=== PATIENT | male | born 1935 | race Caucasian/White ===

== ENCOUNTER 2017-06-08 15:03 | Inpatient (IN) | payer OTHER ==
[2017-06-08] MEDS ORDERED: SODIUM CHLORIDE 0.9% 1000 ML INFUS.BAG IV ONE (15:33)
[2017-06-08] MEDS ORDERED: VANCOMYCIN 1,750 MG in DEXTROSE 5%-WATER - 250 ML IVPB ONE (15:35)
[2017-06-08] MEDS ORDERED: VANCOMYCIN 1 GRAM (PRE-DOCKED) 250 ML IVPB ONE (15:38)
--- NOTE | 2017-06-08 15:41 | PDOC ---
Attending Attestation - Resident Resident Name: Sybil Sanchezcalliecarissa - ED Attending Attestation I have performed the following: I have examined & evaluated the patient, The case was reviewed & discussed with the resident, I agree w/resident's findings & plan, Exceptions are as noted - HPI HPI: 06/08/17 16:28 81-year-old male with a history of multiple medical problems including end- stage COPD and CHF p/w respiratory distress. Per Dr. Mcbride, patient has had progressive respiratory distress over the last few days prompting the alf to put him on Rocephin and start him on azithromycin this morning. He also reports that the patient has recently been on Lasix twice a day as opposed to his usual Lasix once a day. In the ED the patient appears lethargic with increased work of breathing on BiPAP. Likely COPD +/- CHF exacerbation. Afebrile here but PNA also a possibility. His family is currently trying to decide on his CODE STATUS, they believe he would not want a breathing tube but they are unsure about chest compressions. They are awaiting a brother to come to the ED to make a decision. Plan: -cxr -bipap -ABG -Vanc (pt got zosyn and azthro today in [place]) -labs -admit to ICU
[2017-06-08 15:44] LABS: MCH 26.2 pg (25.7-33.7); MCHC 31.9 g/dl (32.0-35.9); MEAN CELL VOLUME 82.1 fl (80-96); PLATELET COUNT 654 K/MM3 (134-434); RDW 16.9 % (11.9-15.9); WHITE BLOOD COUNT 25.3 K/mm3 (4.0-10.0)
[2017-06-08 15:56] LABS: ALBUMIN 3.6 g/dl (3.4-5.0); ANION GAP 12 (8-16); BILIRUBIN,TOTAL 0.3 mg/dL (0.2-1.0); CALCIUM 8.6 mg/dL (8.5-10.1); CO2 26 mmol/L (21-32); CREATININE 4.8 mg/dL (0.7-1.3); GLUCOSE,RANDOM 189 mg/dL (74-106); MAGNESIUM 2.8 mg/dL (1.8-2.4); SGOT/AST 17 U/L (15-37); SGPT/ALT 20 U/L (12-78); TOT PROT 7.5 g/dl (6.4-8.2)
[2017-06-08 15:57] LABS: ARTERIAL BLD GAS O2 SATURATION 97.1 % (90-98.9); ARTERIAL BLOOD GAS BASE EXCESS -2.9 meq/l (-2-2); ARTERIAL BLOOD GAS HCO3 25.4 meq/L (22-26); ARTERIAL BLOOD GAS PO2 93.1 mmHg (68-100)
--- NOTE | 2017-06-08 15:58 | PDOC ---
History of Present Illness - General Chief Complaint: Respiratory Distress Stated Complaint: DIFFICULTY BREATHING Time Seen by Provider: 06/08/17 15:16 - History of Present Illness Initial Comments: 81 year old male with PMH of significant past medical history of dementia, COPD , CHF, CAD, HTN, chronic renal insufficiency, CLL, GERD, peripheral vascular disease, anxiety, hyperlipidemia, diabetes, anemia, and BPH who was sent from [facility] and presents to the emergency department for increasing lethargy with an acute episode of unresponsivebess at 10:45 AM after some apparent visual cyanosis (bluish tinge to skin). He was suctioned and repositioned then recovered but was still acutely altered. He is slightly demented at baseline but usually very talkative. He is currently only responsive with very few words. He was given zosyn and azithromycin earlier in the longterm as well. A CXR on 06/06/17 was clear for any acute pathology. He was afebrile and not complaining of any issues at the longterm. He is DNR and DNI according to her longterm document and a face to face conversation with the two POAs (Marta and Mark). 06/08/17 15:57 06/08/17 17:08 Past History - Past Medical History Allergies/Adverse Reactions: Allergies Allergy/AdvReac Type Severity Reaction Status Date / Time No Known Allergies Allergy Verified 06/08/16 12:53 Home Medications: Ambulatory Orders Albuterol 0.083% Nebulizer Davida [Ventolin 0.083% Nebulizer Soln -] 1 neb NEB Q6H 06/08/16 Budesonide/Formeterol Fumarate [SYMBICORT 160/4.5mcg -] 1 inh PO BID 06/08/16 Calcium Carbonate/Vitamin D3 [Calcium 600-Vit D3 200 Tablet] 1 each PO DAILY 12/19 Cholecalciferol (Vitamin D3) [Vitamin D3 -] 1,000 unit PO DAILY 06/08/16 Clonazepam [Klonopin -] 0.5 mg PO BID 06/08/16 Docusate Sodium 100 mg PO HS 06/08/16 Dorzolamide/Timolol/Pf [Cosopt Pf Eye Drops] 1 each OP DAILY 06/08/16 Escitalopram Oxalate [Lexapro -] 20 mg PO DAILY 06/08/16 Olopatadine HCl [Pataday] 2.5 ml OP DAILY 06/08/16 Tamsulosin HCl 0.4 mg PO DAILY 06/08/16 Acetaminophen [Tylenol .Regular Strength -] 650 mg PO Q4H PRN #90 tablet Latanoprost 0.005% Eye Drops [Xalatan 0.005% Eye Drops -] 1 drop OS HS #0 06/23 Aspirin [ASA -] 81 mg PO DAILY 06/08/17 Ferrous Sulfate [Feosol] 325 mg PO BID 06/08/17 Fexofenadine HCl 60 mg PO BID 06/08/17 Furosemide [Lasix -] 20 mg PO DAILY 06/08/17 Lisinopril [Zestril] 2.5 mg PO DAILY 06/08/17 Omeprazole 20 mg PO DAILY 06/08/17 Tramadol HCl 50 mg PO DAILY 06/08/17 Anemia: Yes Cardiac Disorders: Yes (CAD) CVA: (COR ATHEROSCLEROSIS) COPD: Yes CHF: Yes Diabetes: Yes HTN: Yes Hypercholesterolemia: Yes - Surgical History Cardiac Surgery: Yes (PACEMAKER TO LEFT CHEST) - Immunization History Td Vaccination: No TDAP Vaccination: No Immunization Up to Date: Yes - Suicide/Smoking/Psychosocial Hx Smoking History: Unknown if ever smoked Have you smoked in the past 12 months: No Number of Cigarettes Smoked Daily: 0 Cigars Per Day: 0 Information on smoking cessation initiated: No Hx Alcohol Use: No Drug/Substance Use Hx: No Substance Use Type: None Hx Substance Use Treatment: No Review of Systems - Review of Systems Able to Perform ROS?: No *Physical Exam - Vital Signs Last Vital Signs Temp Pulse Resp BP Pulse Ox 99.6 F 74 24 125/73 97 06/08/17 15:09 06/08/17 15:09 06/08/17 15:09 06/08/17 15:09 06/08/17 15:35 - Physical Exam General Appearance: Yes: Nourished, Apparent Distress, Mild Distress HEENT: positive: EOMI, Normal ENT Inspection, Normal Voice. negative: CLAYTON ( Right pupil round and reactive to light both direct and consenual. Left pupil dilated and non-responsive. ) Neck: positive: Trachea midline, Normal Thyroid, Supple. negative: Tender, Rigid Respiratory/Chest: positive: Lungs Clear, Normal Breath Sounds, Respiratory Distress, Accessory Muscle Use, Labored Respiration (Paztient with sternal retractions and abdominal pardoxical breathign whiel on bipap). negative: Chest Tender Cardiovascular: positive: Regular Rhythm, Regular Rate, S1, S2. negative: Edema , JVD, Murmur Gastrointestinal/Abdominal: positive: Normal Bowel Sounds, Flat, Soft. negative : Tender Extremity: positive: Coldness. negative: Pedal Edema Integumentary: positive: Pale, Cold Neurologic: negative: Fully Oriented, Alert (Somnolent but arrousable to sternal rub and ocasionally voice. Able to answer questions qith appropriate one word answers but delayed.), Normal Response ED Treatment Course - LABORATORY CBC & Chemistry Diagram: 06/08/17 15:35 06/08/17 15:40 - ADDITIONAL ORDERS Additional order review: Laboratory Results 06/08/17 15:40 Sodium 137 Potassium 6.1 H* D Chloride 99 D - RADIOLOGY Radiology Studies Ordered: Category Date Time Status CHEST X-RAY PORTABLE* [RAD] Stat Radiology 06/08/17 15:35 Taken - Medications Given in the ED: ED Medications Discontinued Medications Generic Name Dose Route Start Last Admin Trade Name Freq PRN Reason Stop Dose Admin Sodium Chloride 500 ml 06/08/17 15:33 06/08/17 15:34 Normal Saline - IV 06/08/17 15:34 500 ml ONCE ONE Administration Medical Decision Making - Medical Decision Making 81 year old male presenting in acute hypoxic respiratory and altered mental status. Patient placed on bipap and given a dose of vanc on presentation ( received zosyn and azithromycin). His pressures were tenuous but maintained upper 80s/ low 90s systolic. Troponin elevated to 0.66, lactic acid WNL, showing signs of both metabolic acidosis and renal acidosis Cr 4.4 (up from 2.2 one year prior), pH 7.21, bicarb 25, wbc 25. K was elevated to 6.1 so given calcium gluconate, sodium bicarb, and insulin 5 06/08/17 16:43 Dr. Esparza spoken to and patient admitted to ICU with Dr. Turner as the consult. 06/08/17 17:15 *DC/Admit/Observation/Transfer Diagnosis at time of Disposition: Acute respiratory failure with hypoxia and hypercarbia, Acute on chronic renal failure, Altered mental status - Discharge Dispostion Condition at time of disposition: Stable Admit: Yes - Referrals Referrals: Sigifredo Mcbride MD [Primary Care Provider] -
[2017-06-08 15:59] LABS: ARTERIAL BLOOD GAS pH 7.21 (7.35-7.45)
[2017-06-08] MEDS ORDERED: SODIUM BICARBONATE 8.4% - 50 ML ONE (15:59)
[2017-06-08] MEDS ORDERED: DEXTROSE 50%-WATER 25 GM/50 ML DISP.SYRIN ONE ×2 (15:59→22:27)
[2017-06-08 16:00] LABS: ALLENS TEST POSITIVE; ART PUNCT SITE RIGHT RADIAL; LPM/O2% 30; METHEMOGLOBIN 0.4 % (0.4-1.5); PT. ON O2? YES; TYPE OF O2 BIPAP; VENT RATE 12
[2017-06-08] MEDS ORDERED: SODIUM POLYSTYRENE SULFONATE 15 GM/60 ML BOTTLE ONE (16:00)
[2017-06-08 16:08] LABS: INR 1.27 (0.82-1.09)
[2017-06-08 16:10] LABS: ALK PHOS 153 U/L (45-117); CPK 83 IU/L (39-308)
[2017-06-08 16:13] LABS: TROPONIN I 0.66 ng/ml (0.00-0.05)
[2017-06-08] MEDS ORDERED: INSULIN REGULAR HUMAN 100 UNITS/ML *VIAL IVPUSH ONE ×2 (16:36→22:20)
[2017-06-08] MEDS ORDERED: CALCIUM GLUCONATE 10% - 1,000 MG/10 ML VIAL IVPB ONE (16:37)
[2017-06-08] MEDS ORDERED: SODIUM BICARBONATE 8.4% 50 MEQ/50 ML DISP.SYRIN IVPUSH ONE (16:38)
[2017-06-08] MEDS ORDERED: DEXTROSE 50%-WATER - 25 GM/50 ML VIAL IVPUSH ONE ×2 (16:39→22:20)
[2017-06-08 16:41] LABS: URINE APPEARANCE SLCLOUDY; URINE BILIRUBIN NEGATIVE (NEGATIVE); URINE BLOOD NEGATIVE (NEGATIVE); URINE COLOR DKYELLOW; URINE GLUCOSE (UA) NEGATIVE (NEGATIVE); URINE KETONE NEGATIVE (NEGATIVE); URINE NITRITE NEGATIVE (NEGATIVE); URINE UROBILINOGEN NEGATIVE mg/dL (0.2-1.0)
[2017-06-08] MEDS ORDERED: INSULIN REGULAR HUMAN 100 UNITS/ML *VIAL ONE (16:41)
[2017-06-08 16:46] LABS: URINE LEUK ESTERASE 3+ (NEGATIVE); URINE PROTEIN 1+ (NEGATIVE)
[2017-06-08 16:56] LABS: URINE BACTERIA RARE /hpf (NONE SEEN); URINE MUCUS RARE; URINE RBC 7 /hpf (0-3); URINE WBC 39 /hpf (3-5)
[2017-06-08 17:18] LABS: PLATELET ESTIMATE SLT INCREASED (NORMAL); TOTAL CELLS COUNTED 100
[2017-06-08 17:19] LABS: BASOPHIL (MANUAL) 2 % (0-2.0); MYELOCYTE 2 % (0-2)
[2017-06-08] MEDS ORDERED: SODIUM CHLORIDE 0.9% 500 ML INFUS.BAG IV ONE ×2 (18:02→21:44)
--- NOTE | 2017-06-08 18:06 | CONSULT ---
Consultation: REQUESTING PROVIDER: Dr. Esparza CONSULT REQUEST: We have been asked to medically evaluate this patient for Acute respiratory failure. HISTORY OF PRESENT ILLNESS: Patient is an 81 year old male with a PMHx of COPD (on home 02), CHF (systolic vs. Diastolic), CAD, HTN, HLD, NIDDMII, CKD, PVD, and BPH who presnted from [facility] due to worsening respiratory distress and altered mental status. Patient's family at bedside and report the last 4 days patient was diagnosed with bronchitis and was given antibiotics (Azithromycin and Ceftriaxone) and around the clock nebulizers. Patient's daughter states yesterday he was speaking to her but looked weaker and more lethargic than usual. However, this morning patient was unresponsive around 10:45 with " bluish discoloration", which prompted this hospital visit. In the ED patient was placed on BIPAP saturating well at 99% and was given Vancomycin. Labs were significant for Leukocytosis >25, Creatinine 4.8, Potassium 6.1, troponin 0.66, and pH 7.21. Patient's family otherwise report that patient had no complaints of nausea, vomiting, abdominal pain, chest pain, fever, chills, headaches, dizziness. REVIEW OF SYSTEMS: Unable to obtain due to patients medical condition PHYSICAL EXAMINATION Vital Signs - 24 hr 06/08/17 17:20 Temperature 98.2 F Pulse Rate [ 66 Apical] Respiratory 20 Rate Blood Pressure 125/57 [Left Arm] O2 Sat by Pulse 100 Oximetry (%) GENERAL: Lethargic, mildly responsive, unable to open eyes. HEAD: Normal with no signs of trauma. EYES: Right pupil: round and reactive to light. Left Pupil: Dilated and fixed LUNGS: Bilateral rhonchi's and crackles throughout lung bases with decreased breath sounds bilaterally. On BIPAP. No accessory muscle use. HEART: Regular rate and rhythm, normal S1 and S2 without murmur, rub or gallop. ABDOMEN: Soft, nontender, not distended, normoactive bowel sounds, no guarding, no rebound, no masses. UPPER EXTREMITIES: No peripheral edema. LOWER EXTREMITIES: No peripheral edema. NEUROLOGICAL: Lethargic and unable to respond to examination Abnormal Lab Results 06/08/17 06/08/17 06/08/17 15:35 15:35 15:40 WBC 25.3 H D Hgb 10.9 L D Hct 34.2 L D MCHC 31.9 L RDW 16.9 H D Plt Count 654 H D MPV 7.0 L Monocytes % (Manual) 14 H PT with INR 14.00 H INR 1.27 H ABG pH ABG pCO2 at Pt Temp ABG O2 Content ABG Base Excess Carboxyhemoglobin Potassium 6.1 H* D BUN 87 H D Creatinine 4.8 H D Random Glucose 189 H D Magnesium 2.8 H D Alkaline Phosphatase 153 H D Troponin I 0.66 H* D Urine Protein 06/08/17 06/08/17 15:40 16:00 WBC Hgb Hct MCHC RDW Plt Count MPV Monocytes % (Manual) PT with INR INR ABG pH 7.21 L* D ABG pCO2 at Pt Temp 66.9 H* D ABG O2 Content 13.9 L ABG Base Excess -2.9 L Carboxyhemoglobin 2.2 H Potassium BUN Creatinine Random Glucose Magnesium Alkaline Phosphatase Troponin I Urine Protein 1+ H IMAGES: CHEST X-RAY (06/08/17): Compared to prior chest x-ray dated 06/15/2016. The cardiac silhouette is borderline in size with mild unfolding of the aortic arch. A chin artifact is partially obscuring visualization of the thoracic inlet. The rest of the lung is clear except for minimal atelectatic changes in the left lung base. A left-sided pacer is projecting over the left axilla with 2 leads again seen in satisfactory position. Mediastinum and visualized osseous structures appear intact. IMPRESSION: No significant interval change or gross acute lung disease is present. ASSESSMENT/PLAN: Patient is an 81 year old male with a PMHx of COPD (on home ), CHF (systolic vs. Diastolic), CAD, HTN, HLD, NIDDMII, CKD, PVD, and BPH who presnted from [facility] due to worsening respiratory distress and altered mental status Neurology #Altered Mental Status -Likely secondary to hypoxia and acute respiratory failure -Will resume Klonopin and Lexapro for depression/Anxiety once patient's breathing improves -Continue to monitor Patients mental status frequently Pulmonology #Acute on Chronic Hypercapneic Respiratory failure -Possibly secondary to COPD exacerbation VS. CHF exacerbation VS viral etiology. -BIPAP to assist his work of breathing -DuoNeb standing Q4H and PRN Q6H -Solumedrol 40mg IV Q8H -Zosyn 2.25mg Q8H (renally dosed). Patient presents from [facility] who tend to have more resistance to fluoroquinolones. Will cover for pseudomonas. -Azithromycin for Atypical coverage -Vancomycin trough in the morning ordered -Urine antigens for pneumonia -02 to maintain >88% -Aspiration precautions -ID consult placed #Acute on Chronic Exacerbation -Likely exacerbated from possible viral etiology -Will continue Duo-Nebs -Will continue steroids and antibiotics -ID consult Infectious Disease Sepsis Secondary to Possible COPD exacerbation VS. Pneumonia -Tachypneic with Leukocytosis -Vancomycin given in ED wit hAzithromycin and rocephin given in [facility] -Zosyn 2.25mg (renally dosed) started -ID consult placed Cardiology #CHF exacerbation -Unknown if systolic vs diastolic due to previous poor ECHO study. Will order ECHO -On home Lasix and recently increased to BID by busher helper. Will resume once nephro and cardiology input -BNP ordered -Will hold beta golden due to borderline BP -Cardiology consult placed #Elevated Troponin -Likely secondary to demand ischemia. Rule out ACS. -Trop of 0.66. Will repeat second trop tonight -EKG revealed T-wave inversions with possible ST elevation in aVR. Will repeat EKG -ECHO ordered -Cardiology consult placed #HTN -Will hold anti-htn meds due to borderline BP -Will hold Lisinopril due to SIOBHAN -Continue to monitor BP #HLD -Controlled with no home medications -Lipid panel ordered #CAD -Continue ASA 81mg daily once patient tolerates PO Nephrology #SIOBHAN on CKD -Likely secondary to hypovolemia from poor oral intake vs. medication induced -Patient recently had his Lasix increased from once daily to BID -Creatinine 4.8 with last creatinine 2.1 (06/2016) -250 CC of IV NS given in ED -Hold all nephrotoxic medications and renally dose medications -Urine lytes ordered -Kidney U/S ordered -Nephrology consult placed #HyperKalemia -Likely secondary to worsening kidney function and clearance of 11 -Potassium of 6.1 -Calcium gluconate given in ED with Insulin -Will repeat BMP tonight Endocrinology #NIDDM -ISS and BGM -A1C ordered F/E/N -On no fluids -Hyperkalemia repleated with Calcium gluconate and insulin -NPO Prophylaxis -High risk, Heparin 5000 units Q8H for DVT -Protonix 20mg daily for GI due to patient being on steroids Disposition -Deconditioning: Physical Therapy -DNR/DNI -Will monitor in ICU ocernight Visit type - Emergency Visit Emergency Visit: Yes ED Registration Date: 06/08/17 Care time: The patient presented to the Emergency Department on the above date and was hospitalized for further evaluation of their emergent condition. - New Patient This patient is new to me today: Yes Date on this admission: 06/08/17 - Critical Care Critical Care patient: Yes Total Critical Care Time (in minutes): 45 Critical Care Statement: The care of this patient involved high complexity decision making to prevent further life threatening deterioration of the patient 's condition and/or to evaluate & treat vital organ system(s) failure or risk of failure.
[2017-06-08 18:39] VITALS: BMI 24.9
[2017-06-08] MEDS ORDERED: FLU VACCINE QUAD 60 MCG/0.5 ML (MDV 17-18) IM ONE (18:39)
[2017-06-08] MEDS ORDERED: ALBUTEROL SO4 2.5/IPRATROPIUM 0.5 INH SOL 3 ML VIAL.NEB. NEB PRN (18:46)
[2017-06-08] MEDS ORDERED: PIPERACILLIN/TAZOB 2.25 GM 2.25 GM in DEXTROSE 5%-WATER - 50 ML IVPB SCH (19:15)
[2017-06-08] MEDS ORDERED: ALBUTEROL SO4 0.083% IH SOL 2.5 MG/3 ML VIAL.NEB. NEB PRN ×2 (19:44→22:21)
[2017-06-08] MEDS: SODIUM CHLORIDE 0.45% 1,000 ML IV SCH ×2 (20:38→22:11)
[2017-06-08 20:40] LABS: ARTERIAL BLD GAS O2 SATURATION 79.1 % (90-98.9); ARTERIAL BLOOD GAS BASE EXCESS -0.3 meq/l (-2-2); ARTERIAL BLOOD GAS HCO3 28.8 meq/L (22-26); ARTERIAL BLOOD GAS PO2 44.1 mmHg (68-100); ARTERIAL BLOOD GAS pH 7.19 (7.35-7.45)
[2017-06-08 20:41] LABS: ALLENS TEST POSITIVE; ART PUNCT SITE RIGHT RADIAL; LPM/O2% 40%; PT. ON O2? YES; TYPE OF O2 BI-PAP
[2017-06-08 20:42] LABS: VENT RATE 12
[2017-06-08] MEDS: methylPREDNISolone NA SUCC 40 MG/1 ML VIAL IVPB SCH (20:42)
--- NOTE | 2017-06-08 21:12 | CONSULT ---
Consult Consult Specialty:: Pulm/CCM Reason for Consultation:: Hypoxic respiratory failure and AMS requiring BiPAP - History of Present Illness Chief Complaint: Respiratory Failure requiring BiPAP History of Present Illness: 81 year old male with PMH of significant past medical history of dementia, COPD , CHF, CAD, HTN, chronic renal insufficiency, CLL, GERD, peripheral vascular disease, anxiety, hyperlipidemia, diabetes, anemia, and BPH who was sent to ER from [facility] with report of increasing lethargy with an acute episode of acute hypoxia. As per report he was being treated for bronchitis for about 4 days. This am he had an acute episode of hypoxia with visual cyanosis with some improvement after suctioning but with worsening mental status. In the ED he was reportedly responsive with very few words. VS 99.6, 74, 24, 125 /73 97%. Zosyn and azithromycin were started at the longterm. Labs notable for WBC 25.3, K 6.1, creat 4.8, lactate 1.1, troponin 0.66, urine WBC 39. ABG on NC 4l 7.21,66.9,93.1. He was placed on BiPAP support. A CXR was clear with no acute pathology. Hyperkalemia was medically treated. He was transferred to ICU for further management. He is DNR and DNI according to his longterm document and confirmed by the two POAs (Marta and Mark). In ICU rec'd obtunded on BiPAP 40%, 10/5, HR 70's, BP 97/47, O2 sat 97%. Repeat ABG 7.19, 79,44, BiPAP settings increased. Anuric Renal studies shows Prerenal. NS 500cc bolus given. - History Source History Provided By: Medical Record - Past Medical History [employer]: Yes: Other (? DEMENTIA) Cardio/Vascular: Yes: CAD, CHF, HTN Pulmonary: Yes: COPD Gastrointestinal: Yes: GERD Renal/: Yes: Renal Inusuff, BPH Psych: Yes: Anxiety - Past Surgical History Past Surgical History: Yes: Permanent Pacemaker - Alcohol/Substance Use Hx Alcohol Use: No - Smoking History Smoking history: Unknown if ever smoked Have you smoked in the past 12 months: No Aproximately how many cigarettes per day: 0 - Social History Usual Living Arrangement: [facility] ADL: Support Services History of Recent Travel: No Home Medications - Allergies Allergies/Adverse Reactions: Allergies Allergy/AdvReac Type Severity Reaction Status Date / Time No Known Allergies Allergy Verified 06/08/16 12:53 - Home Medications Home Medications: Ambulatory Orders Albuterol 0.083% Nebulizer [place]ida [Ventolin 0.083% Nebulizer Soln -] 1 neb NEB Q6H 06/08/16 Budesonide/Formeterol Fumarate [SYMBICORT 160/4.5mcg -] 2 inh PO BID 06/08/16 Calcium Carbonate/Vitamin D3 [Calcium 600-Vit D3 200 Tablet] 1 each PO DAILY 12/19 Cholecalciferol (Vitamin D3) [Vitamin D3 -] 1,000 unit PO DAILY 06/08/16 Clonazepam [Klonopin -] 0.25 mg PO BID 06/08/16 Docusate Sodium 200 mg PO HS 06/08/16 Dorzolamide/Timolol/Pf [Cosopt Pf Eye Drops] 1 each OS BID 06/08/16 Escitalopram Oxalate [Lexapro -] 20 mg PO DAILY 06/08/16 Olopatadine HCl [Pataday] 1 drop OU DAILY 06/08/16 Tamsulosin HCl 0.8 mg PO 2100 06/08/16 Acetaminophen [Tylenol .Regular Strength -] 650 mg PO Q4H PRN #90 tablet Latanoprost 0.005% Eye Drops [Xalatan 0.005% Eye Drops -] 1 drop OS HS #0 06/23 Ascorbate Calcium [Vitamin C] 500 mg PO DAILY 06/08/17 Aspirin [ASA -] 81 mg PO DAILY 06/08/17 Atropine 1% Ophth. Solution - [(None)] 1 drop OS DAILY 06/08/17 Diphenhydramine HCl [Benadryl -] 25 mg PO Q6H PRN 06/08/17 Ferrous Sulfate [Feosol] 325 mg PO BID 06/08/17 Fexofenadine HCl 60 mg PO BID 06/08/17 Furosemide [Lasix -] 20 mg PO DAILY 06/08/17 Gabapentin 200 mg PO BID 06/08/17 Lisinopril [Zestril] 2.5 mg PO DAILY 06/08/17 Magnesium Chloride [Mag64] 64 mg PO DAILY 06/08/17 Metoprolol Succinate [Toprol Xl -] 25 mg PO DAILY 06/08/17 Multivitamin with Minerals [Icaps Plus] 1 each PO DAILY 06/08/17 Omeprazole 20 mg PO DAILY 06/08/17 Prednisolone 1% Ophthalmic [Pred Forte 1% -] 0 ml OS QID 06/08/17 Prednisone 5 mg PO DAILY 06/08/17 Tramadol HCl 50 mg PO BID 06/08/17 Umeclidinium [place] [Incruse Ellipta] 1 inh IH DAILY 06/08/17 Zolpidem Tartrate [Ambien] 5 mg PO HS 06/08/17 Family Disease History - Family Disease History Family History: Unable to Obtain Review of Systems Unable to obtain ROS, reason: Obtunded Physical Exam Vital Signs: Vital Signs Temperature 98.2 F 06/08/17 20:37 Pulse Rate 67 06/08/17 20:37 Respiratory Rate 14 06/08/17 20:37 Blood Pressure 96/50 06/08/17 20:37 O2 Sat by Pulse Oximetry (%) 100 06/08/17 21:00 Constitutional: Yes: Well Nourished Eyes: Yes: Cataracts, Other (Rt surgical pupil 4mm un reactive, Lt 2-3mm reactive to light) HENT: Yes: Atraumatic, Normocephalic Neck: Yes: Trachea Midline Cardiovascular: Yes: Regular Rate and Rhythm Respiratory: Yes: On BiPap Gastrointestinal: Yes: Soft, Abdomen, Obese, Hypoactive Bowel Sounds Renal/: Yes: Ling Present, Oliguria Edema: No Peripheral Pulses WNL: Yes Integumentary: Yes: WNL Neurological: Yes: Unresponsive Labs: CBC,CMP WBC 25.3 K/mm3 (4.0-10.0) H D 06/08/17 15:35 RBC 4.16 M/mm3 (4.00-5.60) D 06/08/17 15:35 Hgb 10.9 GM/dL (11.7-16.9) L D 06/08/17 15:35 Hct 34.2 % (35.4-49) L D 06/08/17 15:35 MCV 82.1 fl (80-96) 06/08/17 15:35 MCH 26.2 pg (25.7-33.7) 06/08/17 15:35 MCHC 31.9 g/dl (32.0-35.9) L 06/08/17 15:35 RDW 16.9 % (11.9-15.9) H D 06/08/17 15:35 Plt Count 654 K/MM3 (134-434) H D 06/08/17 15:35 MPV 7.0 fl (7.5-11.1) L 06/08/17 15:35 Total Counted 100 06/08/17 15:35 Neutrophils % No Result Required. 06/08/17 15:35 Neutrophils % (Manual) 48 % (42.8-82.8) 06/08/17 15:35 Lymphocytes % No Result Required. 06/08/17 15:35 Lymphocytes % (Manual) 32 % (8-40) 06/08/17 15:35 Monocytes % (Manual) 14 % (3.8-10.2) H 06/08/17 15:35 Eosinophils % (Manual) 2 % (0-4.5) 06/08/17 15:35 Basophils % (Manual) 2 % (0-2.0) 06/08/17 15:35 Myelocytes % (Man) 2 % (0-2) 06/08/17 15:35 Other Cell Type 06/08/17 15:35 Platelet Estimate Slt increased (NORMAL) 06/08/17 15:35 Sodium 137 mmol/L (136-145) 06/08/17 15:40 Potassium 6.1 mmol/L (3.5-5.1) H* D 06/08/17 15:40 Chloride 99 mmol/L (98-107) D 06/08/17 15:40 Carbon Dioxide 26 mmol/L (21-32) 06/08/17 15:40 Anion Gap 12 (8-16) 06/08/17 15:40 BUN 87 mg/dL (7-18) H D 06/08/17 15:40 Creatinine 4.8 mg/dL (0.7-1.3) H D 06/08/17 15:40 Creat Clearance w eGFR 11.71 (>60) 06/08/17 15:40 Random Glucose 189 mg/dL (74-106) H D 06/08/17 15:40 Lactic Acid 1.1 mmol/L (0.4-2.0) 06/08/17 15:40 Calcium 8.6 mg/dL (8.5-10.1) 06/08/17 15:40 Magnesium 2.8 mg/dL (1.8-2.4) H D 06/08/17 15:40 Total Bilirubin 0.3 mg/dL (0.2-1.0) D 06/08/17 15:40 AST 17 U/L (15-37) D 06/08/17 15:40 ALT 20 U/L (12-78) D 06/08/17 15:40 Alkaline Phosphatase 153 U/L (45-117) H D 06/08/17 15:40 Creatine Kinase 83 IU/L (39-308) 06/08/17 15:40 Troponin I 0.66 ng/ml (0.00-0.05) H* D 06/08/17 15:40 Total Protein 7.5 g/dl (6.4-8.2) 06/08/17 15:40 Albumin 3.6 g/dl (3.4-5.0) D 06/08/17 15:40 BiPAP 60%; 20, 15/7 Current Medications Albuterol Sulfate (Ventolin 0.083% Nebulizer Soln -) 1 amp NEB Q6H PRN PRN Reason: SHORT OF BREATH/WHEEZING Albuterol/Ipratropium (Duoneb -) 1 amp NEB Q4H DES Heparin Sodium (Porcine) (Heparin -) 5,000 unit SQ TID DES Piperacillin Sod/Tazobactam (Sod 2.25 gm/ Dextrose) 50 mls @ 100 mls/hr IVPB Q8H-IV DES PRN Reason: Protocol Sodium Chloride (1/2 Normal Saline) 1,000 mls @ 42 mls/hr IV ASDIR DES Stop: 06/09/17 00:00 Last Admin: 06/08/17 20:38 Dose: Not Given Piperacillin Sod/Tazobactam Sod (Zosyn 2.25gm Ivpb (Pre-Docked)) 50 mls @ 100 mls/hr IVPB Q8H-IV DES Stop: 06/09/17 10:29 Insulin Aspart (Novolog Vial Sliding Scale -) 1 vial SQ ACHS DES PRN Reason: Protocol Methylprednisolone Sodium Succinate (Solu-Medrol -) 40 mg IVPB Q8H-IV DES Last Admin: 06/08/17 20:42 Dose: 40 mg Intake & Output 06/05/17 06/06/17 06/07/17 06/08/17 23:59 23:59 23:59 23:59 Weight 78.9 kg ABG Results ABG pH 7.19 (7.35-7.45) L* 06/08/17 20:35 ABG pCO2 at Pt Temp 79.0 mmHg (35-45) H* 06/08/17 20:35 ABG pO2 at Pt Temp 44.1 mmHg (68-100) L* D 06/08/17 20:35 ABG HCO3 28.8 meq/L (22-26) H 06/08/17 20:35 ABG O2 Sat (Measured) 79.1 % (90-98.9) L 06/08/17 20:35 ABG O2 Content 10.6 % vol (15-22) L 06/08/17 20:35 ABG Base Excess -0.3 meq/l (-2-2) 06/08/17 20:35 Current Active Problems Problem Status Diagnosed Acute on chronic renal failure Acute Acute respiratory failure with hypoxia and hypercarbia Acute Altered mental status Acute Imaging - Results Chest X-ray: Report Reviewed ( No significant interval change or gross acute lung disease is present.) Problem List - Problems (1) Acute on chronic renal failure Code(s): N17.9 - ACUTE KIDNEY FAILURE, UNSPECIFIED N18.9 - CHRONIC KIDNEY DISEASE, UNSPECIFIED (2) Acute respiratory failure with hypoxia and hypercarbia Code(s): J96.01 - ACUTE RESPIRATORY FAILURE WITH HYPOXIA J96.02 - ACUTE RESPIRATORY FAILURE WITH HYPERCAPNIA (3) Altered mental status Code(s): R41.82 - ALTERED MENTAL STATUS, UNSPECIFIED (4) Acute CHF (congestive heart failure) Code(s): I50.9 - HEART FAILURE, UNSPECIFIED Qualifiers: Congestive heart failure type: unspecified congestive heart failure type Qualified Code(s): I50.9 - Heart failure, unspecified; I50.9 - Heart failure , unspecified; I50.9 - Heart failure, unspecified; I50.9 - Heart failure, unspecified (5) Acute renal failure Code(s): N17.9 - ACUTE KIDNEY FAILURE, UNSPECIFIED (6) Anemia Code(s): D64.9 - ANEMIA, UNSPECIFIED (7) CAD (coronary artery disease) Code(s): I25.10 - ATHSCL HEART DISEASE OF [place] CORONARY ARTERY W/O ANG PCTRS Qualifiers: Coronary Disease-Associated Artery/Lesion type: [place] artery [place] vs. transplanted heart: [place] heart Associated angina: without angina Qualified Code(s): I25.10 - Atherosclerotic heart disease of [place] coronary artery without angina pectoris; I25.10 - Atherosclerotic heart disease of [place] coronary artery without angina pectoris; I25.10 - Atherosclerotic heart disease of [place] coronary artery without angina pectoris (8) CHF (congestive heart failure) Code(s): I50.9 - HEART FAILURE, UNSPECIFIED Assessment/Plan 81 year old male with PMH of significant past medical history of dementia, COPD , CHF, CAD, HTN, chronic renal insufficiency, CLL, GERD, peripheral vascular disease, anxiety, hyperlipidemia, diabetes, anemia, and BPH presented to ED with ~ 4 days treatment for bronchitis, worsening mental status and poor po intake now admitted to ICU unresponsive and with hypoxic hypercarbic respiratory failure 2/2 CAP+/- COPD exacerbation +/- CHF exacerbation requiring BiPAP support also with a UTI. Ccb oliguric acute on chronic SIOBHAN, NSTEMI. Plan: Resp: Hypoxic hypercarbic respiratory failure in setting of CAP; hx COPD, DNI -Maintaitn on BiPAP support for goal ph 7.35-7.45; o2 sat>92% -Cont COPD nebs and steroids -Cont Azithro and Zosyn -ABG -Pulm toilet -Aspiration precaution ID: CAP; UTI -F/u cultures -Cont empiric coverage with Azithro and Zosyn CV: Hypotension 2/2 sepsis +/- cardiogenic; NSTEMI m/l d/t demand ischemia; Hx CAD, HTN; Pacemaker; DNR -Judicious fluid bolus; 500cc NS re CHF -Trend troponin -Consider Dopamine for BP and inotropy support -Trend BNP -TTE -Consider diuretic if worsening RVF Renal: Acute on chronic renal failure in setting of sepsis and poor po intake; FeNa 0.73%; Hyperkalemia -Monitor BMP and UOP -Adequate hydration -Medically treat hyperkalemia -Renal dose meds Neuro: AMS m/l d/t sepsis and hypercarbic respiratory failure; hx dementia; reported to be talkative. -BiPAP -Hold sedatives -reorientation Proph: Heparin sq PPI Dispo: DNR/DNI
[2017-06-08 21:21] LABS: SODIUM,RANDOM URINE 46 MMOL/L
[2017-06-08 21:45] LABS: ANION GAP 4 (8-16); CALCIUM 9.1 mg/dL (8.5-10.1); CO2 33 mmol/L (21-32); CREATININE 5.2 mg/dL (0.7-1.3); GLUCOSE,RANDOM 147 mg/dL (74-106)
[2017-06-08 21:49] LABS: CHOLESTEROL 162 mg/dL (50-200)
[2017-06-08] MEDS: HEPARIN NA (PORCINE) 5,000 UNITS/ML 1ML VIAL SQ SCH (22:04)
[2017-06-08] MEDS: INSULIN SLIDING SCALE (NOVOLOG) 1 VIAL SQ SCH (22:05)
[2017-06-08] MEDS ORDERED: ALBUTEROL SO4 0.083% IH SOL 2.5 MG/3 ML VIAL.NEB. NEB ONE (22:20)
[2017-06-08] MEDS ORDERED: ALBUTEROL SO4 2.5/IPRATROPIUM 0.5 INH SOL 3 ML VIAL.NEB. NEB ONE (22:24)
[2017-06-08] MEDS: ALBUTEROL SO4 2.5/IPRATROPIUM 0.5 INH SOL 3 ML VIAL.NEB. NEB SCH (23:40)
[2017-06-09] MEDS: PIPERACILLIN/TAZOB 2.25 GM 50 ML IVPB SCH ×2 (01:51→09:56)
[2017-06-09] MEDS: methylPREDNISolone NA SUCC 40 MG/1 ML VIAL IVPB SCH ×3 (01:51→18:35)
[2017-06-09 06:24] LABS: MCH 26.7 pg (25.7-33.7); MCHC 32.7 g/dl (32.0-35.9); MEAN CELL VOLUME 81.6 fl (80-96); MEAN PLT VOLUME 6.9 fl (7.5-11.1); PLATELET COUNT 535 K/MM3 (134-434); RDW 17.1 % (11.9-15.9)
[2017-06-09] MEDS: HEPARIN NA (PORCINE) 5,000 UNITS/ML 1ML VIAL SQ SCH ×3 (06:24→21:52)
[2017-06-09] MEDS: INSULIN SLIDING SCALE (NOVOLOG) 1 VIAL SQ SCH ×4 (06:25→21:52)
[2017-06-09] MEDS: ALBUTEROL SO4 2.5/IPRATROPIUM 0.5 INH SOL 3 ML VIAL.NEB. NEB SCH ×5 (06:39→22:01)
[2017-06-09 06:54] LABS: ANION GAP 11 (8-16); CALCIUM 8.9 mg/dL (8.5-10.1); CO2 29 mmol/L (21-32); CREATININE 5.1 mg/dL (0.7-1.3); GLUCOSE,RANDOM 173 mg/dL (74-106); MAGNESIUM 2.8 mg/dL (1.8-2.4); PHOSPHOROUS 6.1 mg/dL (2.5-4.9)
[2017-06-09] MEDS ORDERED: INSULIN REGULAR HUMAN 100 UNITS/ML *VIAL IVPUSH ONE ×2 (07:27→15:41)
[2017-06-09] MEDS ORDERED: DEXTROSE 50%-WATER - 25 GM/50 ML VIAL IVPUSH ONE ×5 (07:27→16:54)
[2017-06-09 07:30] LABS: TROPONIN I 0.73 ng/ml (0.00-0.05)
[2017-06-09] MEDS ORDERED: DEXTROSE 50%-WATER 25 GM/50 ML DISP.SYRIN ONE ×2 (08:00→16:14)
--- NOTE | 2017-06-09 08:25 | CON.CARD ---
Cardiology Consult (text) - Consultation Consultation Note: Cardiology Consult Requested by Dr. Esparza for elevated TnI 81M with extensive PMHx including: COPD, CHF, CAD, PAD, HTN, CKD, CLL, GERD, HL , DM, Anemia, BPH and Dementia [facility] episode of cyanosis found to be in acute on chronic renal failure with elevated WBC, acidemia and hypoxia. He was cultured, given broad spectrum abx and placed on BiPap in the ICU; per documents, there is a DNR/DNI order in place. He cannot provide history. We were called to see him due to mildly elevated TnI. ALL: NKDA MEDS: Solumedrol Albuterol SQ Heparin Vancomycin Zosyn Azithromycin FH: Really non-contributory to this presentation and cannot be obtained due to clinical condition SH: Could not be obtained. Physical Exam: vitals as below Anicteric CV: S1,2. RRR. No murmurs Chest: CTA b/l, no wheezing Abd: soft, NT Ext: no edema DATA: ECG: NSR 66bpm, Incomplete RBBB, NSST. CXR: reviewed, no infiltrates. Laboratory Tests 06/08/17 06/08/17 06/08/17 15:35 15:35 19:30 WBC 25.3 H D Hgb 10.9 L D Plt Count 654 H D INR 1.27 H ABG pH ABG pCO2 at Pt Temp ABG pO2 at Pt Temp O2 Delivery Device Oxygen Flow Rate Sodium Potassium BUN Creatinine Random Glucose Creatine Kinase Troponin I 0.99 H* D B-Natriuretic Peptide 06/08/17 06/08/17 06/09/17 20:30 20:35 01:35 WBC Hgb Plt Count INR ABG pH 7.19 L* ABG pCO2 at Pt Temp 79.0 H* ABG pO2 at Pt Temp 44.1 L* D O2 Delivery Device Bi-pap Oxygen Flow Rate 40% Sodium Potassium BUN Creatinine Random Glucose Creatine Kinase Troponin I 0.87 H* B-Natriuretic Peptide 12205.09 H 06/09/17 06/09/17 06/09/17 05:10 05:10 05:10 WBC 14.0 H D Hgb 9.9 L Plt Count 535 H INR ABG pH ABG pCO2 at Pt Temp ABG pO2 at Pt Temp O2 Delivery Device Oxygen Flow Rate Sodium 139 Potassium 6.7 H* BUN 94 H Creatinine 5.1 H Random Glucose 173 H Creatine Kinase 50 Troponin I 0.73 H* B-Natriuretic Peptide Selected Entries 06/09/17 06/09/17 06/09/17 02:00 05:00 06:00 Temperature 97.7 F Pulse Rate 62 Blood Pressure 110/56 O2 Sat by Pulse 100 Oximetry (%) Fraction of 50 Inspired Oxygen (FIO2) IMP: Acute on chronic renal failure with hyperkalemia Likely septic shock Chronic COPD DM PAD History of CAD REC: Mildly elevated TnI with normal CK in this patient is due to acute on chronic renal failure and systemic infection. Do not suspect acute coronary syndrome as ECG is not suggestive and clinical picture supports sepsis- unclear source at the moment: possibly urine or PNA not yet seen on CXR. REC: 1. Abx, supplimental O2 (BiPAP), follow cultures 2. Echo to assess EF. 3. Renal evaluation 4. Can give ASA 81mg daily and continue telemetry. If patient develops tachycardia, can use Metoprolol 5mg IV q4H PRN if BP allows. DNR/DNI as per ER documents Thanks.
[2017-06-09] MEDS: DOPAMINE 400 MG/D5W - 250 ML IVPB SCH (09:23)
--- NOTE | 2017-06-09 09:30 | CONSULT ---
Consultation: REQUESTING PROVIDER: CONSULT REQUEST: RENAL CONSULT HISTORY OF PRESENT ILLNESS: Poor historian. History obtained from the chart. Patient is a 81-year-old male with a signficant past medical history of (on home 02), CHF, CAD, HTN, HLD, NIDDMII, CKD, PVD, and BPH sent from [facility] for evaluation of altered mental status and worsening shortness of breath. As per the chart, family were present at bed side who mentioned that patient was treated with Azithromycin and Ceftriaxone with Nebs for bronchitis 4 days ago. Yesterday morning was found to be cyanosed with change in mental status- looked lethargic than usual. Hence, was brought in the ED for further evaluation and treatment. On arrival, patient was afebrile, hemodyanamically stable with a normal saturation. however, due to work of breathing was placed on Bipap. Was given one dose of IV Vancomycin. Was found have leukocytosis of 25.3 Hyperkalemic to 6.1, creatinine 4.8/ Hence, nephrology was consulted for Acute on chronic renal failure. Allergies: NKDA REVIEW OF SYSTEMS: Unobtainable as patient is poor historian. PHYSICAL EXAMINATION Vital Signs - 24 hr 06/08/17 06/08/17 06/08/17 17:15 17:20 18:08 Temperature 98.2 F 98.3 F Pulse Rate 66 83 Pulse Rate [ 66 Apical] Respiratory 14 20 26 H Rate Blood Pressure 111/58 116/56 Blood Pressure 125/57 [Left Arm] O2 Sat by Pulse 100 100 Oximetry (%) 06/08/17 06/08/17 06/08/17 18:23 18:47 20:37 Temperature 98.2 F Pulse Rate 76 67 Pulse Rate [ Apical] Respiratory 14 Rate Blood Pressure 96/50 Blood Pressure [Left Arm] O2 Sat by Pulse 100 100 Oximetry (%) 06/08/17 06/08/17 06/08/17 21:00 22:37 23:58 Temperature Pulse Rate 68 Pulse Rate [ Apical] Respiratory 20 20 Rate Blood Pressure 97/64 Blood Pressure [Left Arm] O2 Sat by Pulse 100 100 Oximetry (%) 06/09/17 06/09/17 06/09/17 00:00 02:00 02:47 Temperature 97.7 F Pulse Rate 66 60 Pulse Rate [ Apical] Respiratory 20 15 Rate Blood Pressure 83/51 105/50 Blood Pressure [Left Arm] O2 Sat by Pulse 100 Oximetry (%) 06/09/17 06/09/17 06/09/17 04:00 05:00 06:00 Temperature Pulse Rate 65 62 Pulse Rate [ Apical] Respiratory 20 20 Rate Blood Pressure 86/46 110/56 Blood Pressure [Left Arm] O2 Sat by Pulse 100 Oximetry (%) 06/09/17 06/09/17 08:00 09:23 Temperature Pulse Rate 65 73 Pulse Rate [ Apical] Respiratory 20 Rate Blood Pressure 89/40 87/46 Blood Pressure [Left Arm] O2 Sat by Pulse Oximetry (%) GENERAL: Elderly male, on bipap, sleeping but arousable, mild respiratory distress. HEAD: Normal with no signs of trauma. EYES: Pallor +, no icterus. EARS, NOSE, THROAT: Ears normal. Moist mucous membranes. NECK: No masses. LUNGS: B/L coarse breath sounds bilaterally, occasional wheezes. Accessory muscle use +. HEART: Regular rate and rhythm, normal S1 and S2. Murmur hard to appreciate due to coarse breath sounds. ABDOMEN: Soft, nontender, not distended, normoactive bowel sounds, no guarding, no rebound, no masses. Hepatosplenomegaly couldn't be appreciated. MUSCULOSKELETAL: Normal range of motion at all joints. No bony deformities or tenderness. No CVA tenderness. UPPER EXTREMITIES: 2+ pulses, warm, well-perfused. No cyanosis. No clubbing. Cap refill <2 seconds. No peripheral edema. LOWER EXTREMITIES: 2+ pulses, warm, well-perfused. No calf tenderness. No peripheral edema. NEUROLOGICAL: No facial droop. Unable to perform neuro exam. PSYCHIATRIC: UnCooperative. poor eye contact. SKIN: Warm, dry, normal turgor, no rashes or lesions noted. Laboratory Results - last 24 hr 06/08/17 06/08/17 06/08/17 19:30 19:30 19:30 WBC RBC Hgb Hct MCV MCH MCHC RDW Plt Count MPV Puncture Site ABG pH ABG pCO2 at Pt Temp ABG pO2 at Pt Temp ABG HCO3 ABG O2 Sat (Measured) ABG O2 Content ABG Base Excess Carrillo Test O2 Delivery Device Oxygen Flow Rate Vent Mode Vent Rate PEEP Pressure Support Vent Sodium 137 Potassium 5.8 H Chloride 100 Carbon Dioxide 33 H D Anion Gap 4 L BUN 88 H Creatinine 5.2 H Random Glucose 147 H D Hemoglobin A1c % 5.7 Calcium 9.1 Phosphorus Magnesium Creatine Kinase Troponin I B-Natriuretic Peptide Triglycerides 127 Cholesterol 162 Total LDL Cholesterol 105 H HDL Cholesterol 32 L Ur Random Sodium Ur Random Potassium Ur Random Chloride Ur Random Urea Nitrogn Urine Creatinine 06/08/17 06/08/17 06/08/17 19:30 20:00 20:00 WBC RBC Hgb Hct MCV MCH MCHC RDW Plt Count MPV Puncture Site ABG pH ABG pCO2 at Pt Temp ABG pO2 at Pt Temp ABG HCO3 ABG O2 Sat (Measured) ABG O2 Content ABG Base Excess Carrillo Test O2 Delivery Device Oxygen Flow Rate Vent Mode Vent Rate PEEP Pressure Support Vent Sodium Potassium Chloride Carbon Dioxide Anion Gap BUN Creatinine Random Glucose Hemoglobin A1c % Calcium Phosphorus Magnesium Creatine Kinase Troponin I 0.99 H* D B-Natriuretic Peptide Triglycerides Cholesterol Total LDL Cholesterol HDL Cholesterol Ur Random Sodium 46 Ur Random Potassium Ur Random Chloride Ur Random Urea Nitrogn 211 Urine Creatinine 06/08/17 06/08/17 06/08/17 20:00 20:00 20:30 WBC RBC Hgb Hct MCV MCH MCHC RDW Plt Count MPV Puncture Site ABG pH ABG pCO2 at Pt Temp ABG pO2 at Pt Temp ABG HCO3 ABG O2 Sat (Measured) ABG O2 Content ABG Base Excess [place] Test O2 Delivery Device Oxygen Flow Rate Vent Mode Vent Rate PEEP Pressure Support Vent Sodium Potassium Chloride Carbon Dioxide Anion Gap BUN Creatinine Random Glucose Hemoglobin A1c % Calcium Phosphorus Magnesium Creatine Kinase Troponin I B-Natriuretic Peptide 42708.09 H Triglycerides Cholesterol Total LDL Cholesterol HDL Cholesterol Ur Random Sodium 46 Ur Random Potassium 43.5 Ur Random Chloride < 10 Ur Random Urea Nitrogn Urine Creatinine 222.0 06/08/17 06/09/17 06/09/17 20:35 01:35 05:10 WBC 14.0 H D RBC 3.70 L Hgb 9.9 L Hct 30.2 L MCV 81.6 MCH 26.7 MCHC 32.7 RDW 17.1 H Plt Count 535 H MPV 6.9 L Puncture Site Right radial ABG pH 7.19 L* ABG pCO2 at Pt Temp 79.0 H* ABG pO2 at Pt Temp 44.1 L* D ABG HCO3 28.8 H ABG O2 Sat (Measured) 79.1 L ABG O2 Content 10.6 L ABG Base Excess -0.3 Carrillo Test Positive O2 Delivery Device Bi-pap Oxygen Flow Rate 40% Vent Mode S/t Vent Rate 12 PEEP 0.0 Pressure Support Vent 10/5 Sodium Potassium Chloride Carbon Dioxide Anion Gap BUN Creatinine Random Glucose Hemoglobin A1c % Calcium Phosphorus Magnesium Creatine Kinase Troponin I 0.87 H* B-Natriuretic Peptide Triglycerides Cholesterol Total LDL Cholesterol HDL Cholesterol Ur Random Sodium Ur Random Potassium Ur Random Chloride Ur Random Urea Nitrogn Urine Creatinine 06/09/17 06/09/17 05:10 05:10 WBC RBC Hgb Hct MCV MCH MCHC RDW Plt Count MPV Puncture Site ABG pH ABG pCO2 at Pt Temp ABG pO2 at Pt Temp ABG HCO3 ABG O2 Sat (Measured) ABG O2 Content ABG Base Excess Carrillo Test O2 Delivery Device Oxygen Flow Rate Vent Mode Vent Rate PEEP Pressure Support Vent Sodium 139 Potassium 6.7 H* Chloride 99 Carbon Dioxide 29 Anion Gap 11 BUN 94 H Creatinine 5.1 H Random Glucose 173 H Hemoglobin A1c % Calcium 8.9 Phosphorus 6.1 H D Magnesium 2.8 H Creatine Kinase 50 Troponin I 0.73 H* B-Natriuretic Peptide Triglycerides Cholesterol Total LDL Cholesterol HDL Cholesterol Ur Random Sodium Ur Random Potassium Ur Random Chloride Ur Random Urea Nitrogn Urine Creatinine Active Medications Generic Name Dose Route Start Last Admin Trade Name Freq PRN Reason Stop Dose Admin Albuterol Sulfate 1 amp 06/08/17 22:21 Ventolin 0.083% Nebulizer Soln - NEB Q6H PRN SHORT OF BREATH/WHEEZING Albuterol/Ipratropium 1 amp 06/09/17 00:00 06/09/17 06:39 Duoneb - NEB 1 amp Q4H DES Administration Heparin Sodium (Porcine) 5,000 unit 06/08/17 22:00 06/09/17 06:24 Heparin - SQ 5,000 unit TID DES Administration Piperacillin Sod/Tazobactam 50 mls @ 100 mls/hr 06/08/17 18:45 Sod 2.25 gm/ Dextrose IVPB Q8H-IV DES Protocol Piperacillin Sod/Tazobactam Sod 50 mls @ 100 mls/hr 06/08/17 20:42 06/09/17 01: 51 Zosyn 2.25gm Ivpb (Pre-Docked) IVPB 06/09/17 10:29 100 mls/hr Q8H-IV DES Administration Azithromycin 500 mg/ Dextrose 250 mls @ 250 mls/hr 06/09/17 10:00 06/09/17 09: 24 IVPB 250 mls/hr DAILY DES Administration Dopamine HCl/Dextrose 250 mls @ 14.543 mls/hr 06/09/17 09:00 06/09/17 09:23 Dopamine 400 Mg/D5w - IVPB 14.543 mls/hr TITR DES Administration Protocol 5 MCG/KG/MIN Insulin Aspart 1 vial 06/08/17 22:00 06/09/17 06:25 Novolog Vial Sliding Scale - SQ 2 units ACHS DES Administration Protocol Methylprednisolone Sodium Succinate 40 mg 06/08/17 18:45 06/09/17 01:51 Solu-Medrol - IVPB 40 mg Q8H-IV DES Administration Patient is a 81-year-old male with a signficant past medical history of (on home 02), CHF, CAD, HTN, HLD, NIDDMII, CKD, PVD, and BPH sent from [facility] for evaluation of altered mental status and worsening shortness of breath. ASSESSMENT/PLAN: 1. Acute on chronic hypercapenic Respiratory failure likely due to COPD exacerbation and questionable HAP. 2. Urinary tract infection 3. Acute on chronic kidney failure 4. Hyperkalemia 6. Hyperphosphatemia 7. Hypermagnesemia 8. Elevated troponin likely due to demand ischemia, however r/o ACS 9. Hypertension 10. Hyperlipidemia 11. Diabetes Mellitus 12. Peripheral vascular disease 13. CLL 14. CHF Urinary Tract Infection UA RBC 7 and WBC 39, 06/09/16 grew pseudomonas. Urine culture sent Continue IV Cefepime 2gm IV once followed by IV 500mg Q24hrs, change as per sensitivity, as per ID Acute on chronic kidney failure Creatinine 4.8 on presentation, baseline 2.4 in 2016. Today, creatinine is 5.2 Avoid all nephrotoxic drugs, adjust antibiotics as per creatinine clearance Monitor creatinine closely, needs dialysis. Discussed with patients HCP ( daughter and son) regarding dialysis, they want to discuss further regarding it. Kidney ultrasound 06/08/17- normal kidneys, b/l renal cysts, cortical thinning with increased renal cortical echo-texture unchanged from prior urine electrolyes noted Ling placed, monitor Output. Hyperkalemia without EKG changes On arrival, K-6.1--->5.8-->6.7---> 6 Hyperkalemia likely due to worsening of kidney failure Repeat K, if its rising, would consider treating with IV Insulin+50% dextrose , Albuterol. Calcium gluconate if there are any EKG changes. Kayexalate Per rectal, but monitor closely due to prior GI issues. Hypertension-was hypotensive and on dopamine Elevated troponin could be due to demand ischemia vs ACS However could also be due to renal failure, troponins not clearing from the kidneys. Case discussed with Dr. Armas. Dispo: We will continue to follow the patient. Thank you for this consultative opportunity. Visit type - Emergency Visit Emergency Visit: Yes ED Registration Date: 06/08/17 Care time: The patient presented to the Emergency Department on the above date and was hospitalized for further evaluation of their emergent condition. - New Patient This patient is new to me today: Yes Date on this admission: 06/09/17 - Critical Care Critical Care patient: Yes Total Critical Care Time (in minutes): 35 Critical Care Statement: The care of this patient involved high complexity decision making to prevent further life threatening deterioration of the patient 's condition and/or to evaluate & treat vital organ system(s) failure or risk of failure.
--- NOTE | 2017-06-09 09:48 | HP ---
Admitting History and Physical - Primary Care Physician PCP: Sigifredo Mcbride - Admission Chief Complaint: SOB History of Present Illness: Sent from [facility] for acute SOB, respiratory distress Pt was being treated for COPD exacerbation , bronchitis -- ceftriaxone x 3 days , one dose Zosyn yesterday- was sent to ER when not getting any better Transferred to ICU - on Dopamine drip H/O CLL, urethral rupture, anxiety, COPD on O2, frequent bronchitis, UTI, CKD 3- baseline creatinine around 2 Pt more awake on BIPAP -- not on BIPAP in [place] as he tends to remove it Now sleepy, though answers with a yes or no Baseline anxiety ,mild dementia, tries to get out of bed History Source: Medical Record, Caregiver (DR Ramos) Limitations to Obtaining History: Physical Impairment - Past Medical History 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 DEMENTIA) Cardiovascular: Yes: CAD, CHF, HTN Pulmonary: Yes: COPD Gastrointestinal: Yes: GERD Renal/: Yes: Renal Inusuff, BPH Heme/Onc: Yes: Other (CLL) Psych: Yes: Anxiety - Past Surgical History Past Surgical History: Yes: Permanent Pacemaker - Advance Directives Advance Directives: Yes: Health Care Proxy, DNR - Smoking History Smoking history: Unknown if ever smoked Have you smoked in the past 12 months: No Aproximately how many cigarettes per day: 0 - Alcohol/Substance Use Hx Alcohol Use: No - Social History ADL: Support Services History of Recent Travel: No Home Medications - Allergies Allergies/Adverse Reactions: Allergies Allergy/AdvReac Type Severity Reaction Status Date / Time No Known Allergies Allergy Verified 06/08/16 12:53 - Home Medications Home Medications: Ambulatory Orders Albuterol 0.083% Nebulizer Davida [Ventolin 0.083% Nebulizer Soln -] 1 neb NEB Q6H 06/08/16 Budesonide/Formeterol Fumarate [SYMBICORT 160/4.5mcg -] 2 inh PO BID 06/08/16 Calcium Carbonate/Vitamin D3 [Calcium 600-Vit D3 200 Tablet] 1 each PO DAILY 12/19 Cholecalciferol (Vitamin D3) [Vitamin D3 -] 1,000 unit PO DAILY 06/08/16 Clonazepam [Klonopin -] 0.25 mg PO BID 06/08/16 Docusate Sodium 200 mg PO HS 06/08/16 Dorzolamide/Timolol/Pf [Cosopt Pf Eye Drops] 1 each OS BID 06/08/16 Escitalopram Oxalate [Lexapro -] 20 mg PO DAILY 06/08/16 Olopatadine HCl [Pataday] 1 drop OU DAILY 06/08/16 Tamsulosin HCl 0.8 mg PO 2100 06/08/16 Acetaminophen [Tylenol .Regular Strength -] 650 mg PO Q4H PRN #90 tablet Latanoprost 0.005% Eye Drops [Xalatan 0.005% Eye Drops -] 1 drop OS HS #0 06/23 Ascorbate Calcium [Vitamin C] 500 mg PO DAILY 06/08/17 Aspirin [ASA -] 81 mg PO DAILY 06/08/17 Atropine 1% Ophth. Solution - [(None)] 1 drop OS DAILY 06/08/17 Diphenhydramine HCl [Benadryl -] 25 mg PO Q6H PRN 06/08/17 Ferrous Sulfate [Feosol] 325 mg PO BID 06/08/17 Fexofenadine HCl 60 mg PO BID 06/08/17 Furosemide [Lasix -] 20 mg PO DAILY 06/08/17 Gabapentin 200 mg PO BID 06/08/17 Lisinopril [Zestril] 2.5 mg PO DAILY 06/08/17 Magnesium Chloride [Mag64] 64 mg PO DAILY 06/08/17 Metoprolol Succinate [Toprol Xl -] 25 mg PO DAILY 06/08/17 Multivitamin with Minerals [Icaps Plus] 1 each PO DAILY 06/08/17 Omeprazole 20 mg PO DAILY 06/08/17 Prednisolone 1% Ophthalmic [Pred Forte 1% -] 0 ml OS QID 06/08/17 Prednisone 5 mg PO DAILY 06/08/17 Tramadol HCl 50 mg PO BID 06/08/17 Umeclidinium [place] [Incruse Ellipta] 1 inh IH DAILY 06/08/17 Zolpidem Tartrate [Ambien] 5 mg PO HS 06/08/17 Review of Systems Unable to obtain ROS, reason: on BIPAP Physical Examination Vital Signs: Vital Signs Temperature 97.7 F 06/09/17 02:00 Pulse Rate 73 06/09/17 09:23 Respiratory Rate 20 06/09/17 08:00 Blood Pressure 87/46 06/09/17 09:23 O2 Sat by Pulse Oximetry (%) 100 06/09/17 05:00 Constitutional: Yes: No Distress Cardiovascular: Yes: Regular Rate and Rhythm Respiratory: Yes: Diminished, Rhonchi Gastrointestinal: Yes: Normal Bowel Sounds, Soft, Abdomen, Obese. No: Distention, Tenderness Edema: Yes Edema: LLE: Trace, RLE: Trace Psychiatric: Yes: Other (awake) Labs: CBC, BMP 06/09/17 05:10 06/09/17 05:10 Imaging - Results Chest X-ray: Image Reviewed (no infiltrate) EKG: Image Reviewed (NSR, RBBB) Problem List - Problems (1) Acute on chronic renal failure Code(s): N17.9 - ACUTE KIDNEY FAILURE, UNSPECIFIED N18.9 - CHRONIC KIDNEY DISEASE, UNSPECIFIED (2) Acute respiratory failure with hypoxia and hypercarbia Code(s): J96.01 - ACUTE RESPIRATORY FAILURE WITH HYPOXIA J96.02 - ACUTE RESPIRATORY FAILURE WITH HYPERCAPNIA (3) Altered mental status Code(s): R41.82 - ALTERED MENTAL STATUS, UNSPECIFIED (4) Chronic lymphocytic leukemia Code(s): C91.10 - CHRONIC LYMPHOCYTIC LEUK OF B-CELL TYPE NOT ACHIEVE REMIS (5) Acute CHF (congestive heart failure) Code(s): I50.9 - HEART FAILURE, UNSPECIFIED Qualifiers: Congestive heart failure type: unspecified congestive heart failure type Qualified Code(s): I50.9 - Heart failure, unspecified; I50.9 - Heart failure , unspecified; I50.9 - Heart failure, unspecified; I50.9 - Heart failure, unspecified (6) Acute renal failure Code(s): N17.9 - ACUTE KIDNEY FAILURE, UNSPECIFIED (7) Anemia Code(s): D64.9 - ANEMIA, UNSPECIFIED (8) CAD (coronary artery disease) Code(s): I25.10 - ATHSCL HEART DISEASE OF [place] CORONARY ARTERY W/O ANG PCTRS Qualifiers: Coronary Disease-Associated Artery/Lesion type: [place] artery [place] vs. transplanted heart: [place] heart Associated angina: without angina Qualified Code(s): I25.10 - Atherosclerotic heart disease of [place] coronary artery without angina pectoris; I25.10 - Atherosclerotic heart disease of [place] coronary artery without angina pectoris; I25.10 - Atherosclerotic heart disease of [place] coronary artery without angina pectoris (9) COPD (chronic obstructive pulmonary disease) Code(s): J44.9 - CHRONIC OBSTRUCTIVE PULMONARY DISEASE, UNSPECIFIED Qualifiers : COPD type: COPD with acute exacerbation Qualified Code(s): J44.1 - Chronic obstructive pulmonary disease with (acute) exacerbation; J44.1 - Chronic obstructive pulmonary disease with (acute) exacerbation; J44.1 - Chronic obstructive pulmonary disease with (acute) exacerbation; J44.1 - Chronic obstructive pulmonary disease with (acute) exacerbation (10) Septic shock Code(s): A41.9 - SEPSIS, UNSPECIFIED ORGANISM R65.21 - SEVERE SEPSIS WITH SEPTIC SHOCK Assessment/Plan A/P Septic shock COPD exacerbation Elevated troponins NSTEMI Acute on chronic renal failure Dementia Hyperkalemia -- -- NPO -- IV Dopamine check urine out put- decreased iv fluids troponins trending down-- elevated likely due to sepsis cardiology eval noted Renal and ID eval broad spectrum antibiotics cultures pending kayexalate for hyperkalemia on iv solumedrol DVT prophylaxis--- Heparin sc Spoke with ICU attending and PMD , ID attending time spent - 35 min
[2017-06-09 09:55] LABS: THYROID STIMULATING HORMONE 0.17 uIU/ml (0.358-3.74)
[2017-06-09 09:58] LABS: THYROXINE (T4) 8.1 ug/dl (4.5-12.1)
[2017-06-09] MEDS ORDERED: AZITHROMYCIN IVPB 500 MG in DEXTROSE 5%-WATER - 250 ML IVPB SCH (10:00)
--- NOTE | 2017-06-09 10:13 | CON.ID ---
Consult Consult Specialty:: Infectious Disease Reason for Consultation:: Sepsis - History of Present Illness History of Present Illness: 81yo M with multiple comorbid conditions including CLL, COPD, diabetes mellitus , and chronic renal insufficiency who initially presented to the ED from [facility] with cyanosis and unresponsiveness. At [facility] pt was found to have increased work of breathing for the past 3 days and was being treated with Rocephin for acute bronchitis. On the day of admission [place] found pt minimally responsive and developing cyanosis. He was sent to our facility for evaluation. In the ED pt was found to be minimally responsive with increased work of breathing with labile blood pressures. He was then admitted to the ICU for further management. Currently patient is responsive to verbal stimuli, however only will nod yes or no while on BiPap machine and will use some words if prompted. He reports no chest or abdominal pain, no difficulty with his breathing currently, and denies chills or feeling feverish. At baseline per [place] paperwork, pt is normally anxious and very talkative. 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 DEMENTIA) Cardio/Vascular: Yes: CAD, CHF, HTN Pulmonary: Yes: COPD Gastrointestinal: Yes: GERD Renal/: Yes: Renal Inusuff, BPH Psych: Yes: Anxiety - Past Surgical History Past Surgical History: Yes: Permanent Pacemaker - Alcohol/Substance Use Hx Alcohol Use: No - Smoking History Smoking history: Unknown if ever smoked Have you smoked in the past 12 months: No Aproximately how many cigarettes per day: 0 - Social History Usual Living Arrangement: Residential ADL: Support Services History of Recent Travel: No Home Medications - Allergies Allergies/Adverse Reactions: Allergies Allergy/AdvReac Type Severity Reaction Status Date / Time No Known Allergies Allergy Verified 06/08/16 12:53 - Home Medications Home Medications: Ambulatory Orders Albuterol 0.083% Nebulizer Davida [Ventolin 0.083% Nebulizer Soln -] 1 neb NEB Q6H 06/08/16 Budesonide/Formeterol Fumarate [SYMBICORT 160/4.5mcg -] 2 inh PO BID 06/08/16 Calcium Carbonate/Vitamin D3 [Calcium 600-Vit D3 200 Tablet] 1 each PO DAILY 12/19 Cholecalciferol (Vitamin D3) [Vitamin D3 -] 1,000 unit PO DAILY 06/08/16 Clonazepam [Klonopin -] 0.25 mg PO BID 06/08/16 Docusate Sodium 200 mg PO HS 06/08/16 Dorzolamide/Timolol/Pf [Cosopt Pf Eye Drops] 1 each OS BID 06/08/16 Escitalopram Oxalate [Lexapro -] 20 mg PO DAILY 06/08/16 Olopatadine HCl [Pataday] 1 drop OU DAILY 06/08/16 Tamsulosin HCl 0.8 mg PO 2100 06/08/16 Acetaminophen [Tylenol .Regular Strength -] 650 mg PO Q4H PRN #90 tablet Latanoprost 0.005% Eye Drops [Xalatan 0.005% Eye Drops -] 1 drop OS HS #0 06/23 Ascorbate Calcium [Vitamin C] 500 mg PO DAILY 06/08/17 Aspirin [ASA -] 81 mg PO DAILY 06/08/17 Atropine 1% Ophth. Solution - [(None)] 1 drop OS DAILY 06/08/17 Diphenhydramine HCl [Benadryl -] 25 mg PO Q6H PRN 06/08/17 Ferrous Sulfate [Feosol] 325 mg PO BID 06/08/17 Fexofenadine HCl 60 mg PO BID 06/08/17 Furosemide [Lasix -] 20 mg PO DAILY 06/08/17 Gabapentin 200 mg PO BID 06/08/17 Lisinopril [Zestril] 2.5 mg PO DAILY 06/08/17 Magnesium Chloride [Mag64] 64 mg PO DAILY 06/08/17 Metoprolol Succinate [Toprol Xl -] 25 mg PO DAILY 06/08/17 Multivitamin with Minerals [Icaps Plus] 1 each PO DAILY 06/08/17 Omeprazole 20 mg PO DAILY 06/08/17 Prednisolone 1% Ophthalmic [Pred Forte 1% -] 0 ml OS QID 06/08/17 Prednisone 5 mg PO DAILY 06/08/17 Tramadol HCl 50 mg PO BID 06/08/17 Umeclidinium [place] [Incruse Ellipta] 1 inh IH DAILY 06/08/17 Zolpidem Tartrate [Ambien] 5 mg PO HS 06/08/17 Review of Systems Unable to obtain ROS, reason: Clinical condition Physical Exam Vital Signs: Vital Signs Temperature 97.8 F 06/09/17 09:49 Pulse Rate 66 06/09/17 09:49 Respiratory Rate 20 06/09/17 09:49 Blood Pressure 116/53 06/09/17 09:49 O2 Sat by Pulse Oximetry (%) 100 06/09/17 05:00 Constitutional: Yes: Other (Pt on BiPap; responds to verbal stimuli; lethargic) Eyes: Yes: EOM Intact, PERRL Cardiovascular: Yes: Regular Rate and Rhythm. No: Murmur Respiratory: Yes: Other (Coarse breath sounds bilaterally. Accessory muscle use noted. On BiPAP currently 14-8 settings) Gastrointestinal: Yes: Soft, Hypoactive Bowel Sounds. No: Hepatomegaly, Splenomegaly, Tenderness Renal/: Yes: Rodriguez Present (Minimal urine output in rodriguez tank; yellow urine slightly cloudy. no blood noted) Musculoskeletal: Yes: Other (No pressure sores noted on back, posterior legs, or calcanei) Extremities: Yes: Cold, Other (Cap refill <2; pulses symmetrical distally) Edema: No Integumentary: Yes: Other (See MSK section). No: Rash Neurological: Yes: Other (Alert to verbal stimulus and follows commands. Non- focal exam currently) Labs: CBC, BMP 06/09/17 05:10 06/09/17 05:10 Imaging - Results X-ray: Report Reviewed, Image Reviewed Ultrasound: Report Reviewed (Renal ultrasound: No hydro; mild cortical thinning reflecting medical-kidney disease present prior) Problem List - Problems (1) Renal insufficiency Code(s): N28.9 - DISORDER OF KIDNEY AND URETER, UNSPECIFIED (2) Urinary tract infection Code(s): N39.0 - URINARY TRACT INFECTION, SITE NOT SPECIFIED (3) Chronic lymphocytic leukemia Code(s): C91.10 - CHRONIC LYMPHOCYTIC LEUK OF B-CELL TYPE NOT ACHIEVE REMIS Assessment/Plan Assessment: UTI CLL Renal Insufficiency Plan: Will start Cefepime renally dosed for treatment of suspected UTI; ?sepsis vs acute respiratory causes explaining clinical situation --Cefepime 2gm IV once followed by 500mg IV q24h D/C Zithromax and Zosyn Cultures still pending --Most recent positive urine culture from 06/2016 showing Pseudomonas with only resistance to Fluoroquinolones Discussed case with Dr. Connie Mendoza, DO - Internal Medicine PGY-1
[2017-06-09] MEDS ORDERED: SODIUM POLYSTYRENE SULFONATE 15 GM/60 ML BOTTLE PO ONE ×2 (10:47→12:00)
--- NOTE | 2017-06-09 10:52 | PN ---
Teaching Attending Note Name of Resident: Darian Mendoza ATTENDING PHYSICIAN STATEMENT I saw and evaluated the patient. I reviewed the resident's note and discussed the case with the resident. I agree with the resident's findings and plan as documented. 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
[2017-06-09] MEDS: SODIUM CHLORIDE 0.45% 1,000 ML IV SCH (11:00)
[2017-06-09 11:12] LABS: ANION GAP 9 (8-16); CALCIUM 9.3 mg/dL (8.5-10.1); CO2 27 mmol/L (21-32); CREATININE 5.2 mg/dL (0.7-1.3); GLUCOSE,RANDOM 228 mg/dL (74-106)
[2017-06-09] MEDS ORDERED: CEFEPIME HCL 2 GM VIAL (RESTRICTED TO ID) IVPB ONE (13:00)
[2017-06-09] MEDS ORDERED: CEFEPIME 2 GM/100 ML BAG PRE-DOCKED IVPB ONE (13:00)
--- NOTE | 2017-06-09 13:12 | PN ---
Physical Exam: SUBJECTIVE: Patient seen and examined 81 yo M h/o HTN, HLD, CHF, CAD, NIDDMII, CKD, and PVD who arrives from [facility] with AMS, worsening SOB following 4 day course of antibiotics for bronchitis in hypoxic respiratory failure requiring BIPAP. Overnight patient with no acute events. He is awake on BIPAP and able to speak and nod to questions. MAP consistently below 60 this AM since being of pressor support. OBJECTIVE: Vital Signs Period Temp Pulse Resp BP Sys/Valenzuela Pulse Ox Last 24 Hr 97.7 F-98.3 F 60-83 14-26 83-129/40-64 97-100 GENERAL: The patient is awake, alert, and, in no acute distress. HEAD: Normal with no signs of trauma. EYES: PERRL, extraocular movements intact, sclera anicteric, conjunctiva clear. No ptosis. . NECK: Trachea midline, full range of motion, supple. LUNGS: +Coarse BL lungs sounds with inspiratory wheezing BL,. HEART: Regular rate and rhythm, S1, S2 without murmur, rub or gallop. ABDOMEN: Soft, nontender, nondistended, normoactive bowel sounds, no guarding, no rebound, no hepatosplenomegaly, no masses. EXTREMITIES: 2+ pulses, warm, well-perfused, no edema. PSYCH: Normal mood, normal affect. SKIN: Warm, dry, normal turgor, no rashes or lesions noted Laboratory Results - last 24 hr 06/08/17 06/08/17 06/08/17 19:30 19:30 19:30 WBC RBC Hgb Hct MCV MCH MCHC RDW Plt Count MPV Puncture Site ABG pH ABG pCO2 at Pt Temp ABG pO2 at Pt Temp ABG HCO3 ABG O2 Sat (Measured) ABG O2 Content ABG Base Excess Carrillo Test O2 Delivery Device Oxygen Flow Rate Vent Mode Vent Rate PEEP Pressure Support Vent Sodium 137 Potassium 5.8 H Chloride 100 Carbon Dioxide 33 H D Anion Gap 4 L BUN 88 H Creatinine 5.2 H Random Glucose 147 H D Hemoglobin A1c % 5.7 Lactic Acid Calcium 9.1 Phosphorus Magnesium Creatine Kinase Troponin I B-Natriuretic Peptide Triglycerides 127 Cholesterol 162 Total LDL Cholesterol 105 H HDL Cholesterol 32 L TSH Ur Random Sodium Ur Random Potassium Ur Random Chloride Ur Random Urea Nitrogn Urine Creatinine 06/08/17 06/08/17 06/08/17 19:30 20:00 20:00 WBC RBC Hgb Hct MCV MCH MCHC RDW Plt Count MPV Puncture Site ABG pH ABG pCO2 at Pt Temp ABG pO2 at Pt Temp ABG HCO3 ABG O2 Sat (Measured) ABG O2 Content ABG Base Excess Carrillo Test O2 Delivery Device Oxygen Flow Rate Vent Mode Vent Rate PEEP Pressure Support Vent Sodium Potassium Chloride Carbon Dioxide Anion Gap BUN Creatinine Random Glucose Hemoglobin A1c % Lactic Acid Calcium Phosphorus Magnesium Creatine Kinase Troponin I 0.99 H* D B-Natriuretic Peptide Triglycerides Cholesterol Total LDL Cholesterol HDL Cholesterol TSH Ur Random Sodium 46 Ur Random Potassium Ur Random Chloride Ur Random Urea Nitrogn 211 Urine Creatinine 06/08/17 06/08/17 06/08/17 20:00 20:00 20:30 WBC RBC Hgb Hct MCV MCH MCHC RDW Plt Count MPV Puncture Site ABG pH ABG pCO2 at Pt Temp ABG pO2 at Pt Temp ABG HCO3 ABG O2 Sat (Measured) ABG O2 Content ABG Base Excess Carrillo Test O2 Delivery Device Oxygen Flow Rate Vent Mode Vent Rate PEEP Pressure Support Vent Sodium Potassium Chloride Carbon Dioxide Anion Gap BUN Creatinine Random Glucose Hemoglobin A1c % Lactic Acid Calcium Phosphorus Magnesium Creatine Kinase Troponin I B-Natriuretic Peptide 20830.09 H Triglycerides Cholesterol Total LDL Cholesterol HDL Cholesterol TSH Ur Random Sodium 46 Ur Random Potassium 43.5 Ur Random Chloride < 10 Ur Random Urea Nitrogn Urine Creatinine 222.0 06/08/17 06/09/17 06/09/17 20:35 01:35 05:10 WBC 14.0 H D RBC 3.70 L Hgb 9.9 L Hct 30.2 L MCV 81.6 MCH 26.7 MCHC 32.7 RDW 17.1 H Plt Count 535 H MPV 6.9 L Puncture Site Right radial ABG pH 7.19 L* ABG pCO2 at Pt Temp 79.0 H* ABG pO2 at Pt Temp 44.1 L* D ABG HCO3 28.8 H ABG O2 Sat (Measured) 79.1 L ABG O2 Content 10.6 L ABG Base Excess -0.3 Carrillo Test Positive O2 Delivery Device Bi-pap Oxygen Flow Rate 40% Vent Mode S/t Vent Rate 12 PEEP 0.0 Pressure Support Vent 10/5 Sodium Potassium Chloride Carbon Dioxide Anion Gap BUN Creatinine Random Glucose Hemoglobin A1c % Lactic Acid Calcium Phosphorus Magnesium Creatine Kinase Troponin I 0.87 H* B-Natriuretic Peptide Triglycerides Cholesterol Total LDL Cholesterol HDL Cholesterol TSH Ur Random Sodium Ur Random Potassium Ur Random Chloride Ur Random Urea Nitrogn Urine Creatinine 06/09/17 06/09/17 06/09/17 05:10 05:10 05:10 WBC RBC Hgb Hct MCV MCH MCHC RDW Plt Count MPV Puncture Site ABG pH ABG pCO2 at Pt Temp ABG pO2 at Pt Temp ABG HCO3 ABG O2 Sat (Measured) ABG O2 Content ABG Base Excess Carrillo Test O2 Delivery Device Oxygen Flow Rate Vent Mode Vent Rate PEEP Pressure Support Vent Sodium 139 Potassium 6.7 H* Chloride 99 Carbon Dioxide 29 Anion Gap 11 BUN 94 H Creatinine 5.1 H Random Glucose 173 H Hemoglobin A1c % Lactic Acid Calcium 8.9 Phosphorus 6.1 H D Magnesium 2.8 H Creatine Kinase 50 Troponin I 0.73 H* B-Natriuretic Peptide Triglycerides Cholesterol Total LDL Cholesterol HDL Cholesterol TSH 0.17 L Cancelled Ur Random Sodium Ur Random Potassium Ur Random Chloride Ur Random Urea Nitrogn Urine Creatinine 06/09/17 06/09/17 09:30 10:30 WBC RBC Hgb Hct MCV MCH MCHC RDW Plt Count MPV Puncture Site ABG pH ABG pCO2 at Pt Temp ABG pO2 at Pt Temp ABG HCO3 ABG O2 Sat (Measured) ABG O2 Content ABG Base Excess Carrillo Test O2 Delivery Device Oxygen Flow Rate Vent Mode Vent Rate PEEP Pressure Support Vent Sodium 137 Potassium 6.0 H Chloride 101 Carbon Dioxide 27 Anion Gap 9 BUN 96 H Creatinine 5.2 H Random Glucose 228 H D Hemoglobin A1c % Lactic Acid 1.5 Calcium 9.3 Phosphorus Magnesium Creatine Kinase Troponin I B-Natriuretic Peptide Triglycerides Cholesterol Total LDL Cholesterol HDL Cholesterol TSH Ur Random Sodium Ur Random Potassium Ur Random Chloride Ur Random Urea Nitrogn Urine Creatinine Active Medications Generic Name Dose Route Start Last Admin Trade Name Freq PRN Reason Stop Dose Admin Albuterol Sulfate 1 amp 06/08/17 22:21 Ventolin 0.083% Nebulizer Soln - NEB Q6H PRN SHORT OF BREATH/WHEEZING Albuterol/Ipratropium 1 amp 06/09/17 00:00 06/09/17 10:20 Duoneb - NEB 1 amp Q4H DES Administration Cefepime HCl 2 gm 06/09/17 13:00 Maxipime 2gm Ivpb (Pre-Docked) IVPB 06/09/17 13:01 ONCE ONE Heparin Sodium (Porcine) 5,000 unit 06/08/17 22:00 06/09/17 06:24 Heparin - SQ 5,000 unit TID DES Administration Dopamine HCl/Dextrose 250 mls @ 14.543 mls/hr 06/09/17 09:00 06/09/17 09:23 Dopamine 400 Mg/D5w - IVPB 14.543 mls/hr TITR DES Administration Protocol 5 MCG/KG/MIN Sodium Chloride 1,000 mls @ 60 mls/hr 06/09/17 10:45 1/2 Normal Saline IV ASDIR DES Cefepime HCl 0.5 gm/ Dextrose 100 mls @ 200 mls/hr 06/10/17 10:00 IVPB DAILY DES Insulin Aspart 1 vial 06/08/17 22:00 06/09/17 06:25 Novolog Vial Sliding Scale - SQ 2 units ACHS [facility] Administration Protocol Methylprednisolone Sodium Succinate 40 mg 06/08/17 18:45 06/09/17 09:53 Solu-Medrol - IVPB 40 mg Q8H-IV DES Administration ASSESSMENT/PLAN: 81 yo M h/o HTN, HLD, CHF, CAD, NIDDMII, CKD, and PVD who arrives from [facility] with AMS, worsening SOB following 4 day course of antibiotics for bronchitis in hypoxic respiratory failure requiring BIPAP. Pulmonology: Acute on Chronic Hypercapneic Respiratory failure -2/2 Viral COPD exacerbation Vs. CHF exacerbation -BIPAP to assist his work of breathing -DuoNeb Q4H and PRN Q6H, Solumedrol 40mg IV Q8H -Vancomycin trough ordered following Vanc in ED. -Pending urine antigens for pneumonia -02 to maintain >90% -Aspiration precautions Plan: - D/c Zosyn 2.25mg Q8H Azithromycin. - Per ID recs start empiric therapy with Cefepime for pseudomonal coverage and lung coverage adjusted for Cr Cl. -Cont Duo-Nebs -Cont steroids Infectious Disease Sepsis 2/2 to COPD exacerbation Vs. Pneumonia -Tachypneic with Leukocytosis -Vancomycin given in ED wit Azithromycin and Rocephin given in usp Plan: - D/c Zosyn 2.25mg and Azithromycin. - Per ID recs Cefepime for pseudomonal coverage and lung coverage adjusted for Cr Cl Neurology: Altered Mental Status -2/2 to acute resp failure and hypoxia. Plan: - Resume Klonopin and Lexapro for depression/Anxiety once breathing improves - Continue mental status checks Cardiology CHF exacerbation: systolic vs. diastolic HF -Home Lasix recently increased to BID by design engineer products. Will resume once nephro and cardiology input -Hold Beta golden due to borderline BP Elevated Troponin: elevated trop with nml CK d/t acute on chronic renal failure and infxn ( UTI vs PNA). -Trop 0.66.--> 0.73 (06/09) -EKG revealed T-wave inversions with possible ST elevation in aVR. Plan: - f/u cultures - ASA 81mg daily - Continue telemetry. - Per cardiology recs, if patient tachy can use Metoprolol 5mg IV q4H PRN if BP allows. HTN MAP consistently below 60 (06/09) Plan: - W/hold anti-HTN meds due to borderline BP - W/hold Lisinopril d/t SIOBHAN - Central line placed ( 06/09) - Noreponephrine 8000 mcg gtt HLD -Controlled with no home medications -Lipid panel pending Nephrology SIOBHAN on CKD -Likely secondary to hypovolemia from poor oral intake vs. medication induced. Lasix recently increased from once daily to BID -Creatinine 4.8 --> 5.1 ( 06/09) Plan: -Holding all nephrotoxic medications and renally dose medications -Urine lytes ordered -Kidney U/S with no evidence of hydronephrosis or obstruction. -Nephrology consult placed -Discussed with pt. daughter the desire to be have pt. placed on dialysis vs. medical management. She is in collaboration with family and awaiting decision ( 06/09) . HyperKalemia -Likely 2/2 worsening kidney function and clearance of 11 -Potassium of 6.7 (06/09) -Calcium gluconate given in ED with Insulin -Will repeat BMP tonight Plan: - Continue to treat with albuterol, insulin with dextrose, and kaexylate per rectum. - Repeat EKG Endocrinology NIDDM Plan: -HgbA1C Pending FEN: No IVF Hyperkalemia: Manage medically. NPO PPx Heparin 5000 U Q8H for DVT Protonix 20mg QD Disposition -DNR/DNI Per family and [facility]. -Cont to monitor in ICU ocernight Visit type - Emergency Visit Emergency Visit: Yes ED Registration Date: 06/08/17 Care time: The patient presented to the Emergency Department on the above date and was hospitalized for further evaluation of their emergent condition. - New Patient This patient is new to me today: Yes Date on this admission: 06/09/17 - Critical Care Critical Care patient: Yes Total Critical Care Time (in minutes): 30 Critical Care Statement: The care of this patient involved high complexity decision making to prevent further life threatening deterioration of the patient 's condition and/or to evaluate & treat vital organ system(s) failure or risk of failure.
[2017-06-09] MEDS ORDERED: NOREPINEPHRINE BITARTRATE 4 MG/4 ML ML IV ONE ×2 (13:18→21:11)
[2017-06-09] MEDS ORDERED: NOREPINEPHRINE BITARTRATE 8,000 MCG in SODIUM CHLORIDE 0.45% 992 ML IV SCH (13:30)
[2017-06-09] MEDS: NOREPINEPHRINE BITARTRATE 8,000 MCG in DEXTROSE 5%-WATER - 492 ML IV SCH (14:00)
[2017-06-09 14:05] LABS: MCH 26.2 pg (25.7-33.7); MCHC 32.4 g/dl (32.0-35.9); MEAN CELL VOLUME 80.8 fl (80-96); MEAN PLT VOLUME 6.4 fl (7.5-11.1); PLATELET COUNT 562 K/MM3 (134-434); RDW 16.6 % (11.9-15.9); WHITE BLOOD COUNT 15.3 K/mm3 (4.0-10.0)
--- NOTE | 2017-06-09 14:12 | EKG ---
Test Reason : Blood Pressure : / mmHG Vent. Rate : 071 BPM Atrial Rate : 071 BPM P-R Int : 200 ms QRS Dur : 084 ms QT Int : 392 ms P-R-T Axes : 093 041 -86 degrees QTc Int : 425 ms NORMAL SINUS RHYTHM WITH SINUS ARRHYTHMIA LOW VOLTAGE QRS CANNOT RULE OUT INFERIOR INFARCT , AGE UNDETERMINED ABNORMAL ECG WHEN COMPARED WITH ECG OF 08-JUN-2017 19:50, NO SIGNIFICANT CHANGE WAS FOUND Confirmed by OLRI FAIRCHILD, GEORGIE ([id number]) on 06/09/2017 2:12:03 PM Referred By: NILSA HARRISON Confirmed By:GEORGIE SANDOVAL MD
--- NOTE | 2017-06-09 14:13 | EKG ---
Test Reason : Blood Pressure : / mmHG Vent. Rate : 068 BPM Atrial Rate : 068 BPM P-R Int : 206 ms QRS Dur : 094 ms QT Int : 378 ms P-R-T Axes : 037 072 -38 degrees QTc Int : 401 ms NORMAL SINUS RHYTHM WITH SINUS ARRHYTHMIA LOW VOLTAGE QRS INCOMPLETE RIGHT BUNDLE BRANCH BLOCK NONSPECIFIC T WAVE ABNORMALITY ABNORMAL ECG WHEN COMPARED WITH ECG OF 08-JUN-2017 15:11, INCOMPLETE RIGHT BUNDLE BRANCH BLOCK HAS REPLACED RIGHT BUNDLE BRANCH BLOCK NONSPECIFIC T WAVE ABNORMALITY HAS REPLACED INVERTED T WAVES IN INFERIOR LEADS NONSPECIFIC T WAVE ABNORMALITY, WORSE IN LATERAL LEADS Confirmed by GEORGIE SANDOVAL MD ([id number]) on 06/09/2017 2:12:33 PM Referred By: Confirmed By:GEORGIE SANDOVAL MD
--- NOTE | 2017-06-09 14:17 | EKG ---
Test Reason : Blood Pressure : / mmHG Vent. Rate : 080 BPM Atrial Rate : 080 BPM P-R Int : 202 ms QRS Dur : 128 ms QT Int : 368 ms P-R-T Axes : 063 075 -28 degrees QTc Int : 424 ms POOR DATA QUALITY, INTERPRETATION MAY BE ADVERSELY AFFECTED NORMAL SINUS RHYTHM RIGHT BUNDLE BRANCH BLOCK T WAVE ABNORMALITY, CONSIDER INFERIOR ISCHEMIA ABNORMAL ECG WHEN COMPARED WITH ECG OF 10-JUN-2016 08:39, RIGHT BUNDLE BRANCH BLOCK IS NOW PRESENT Confirmed by GEORGIE SANDOVAL MD ([id number]) on 06/09/2017 2:16:39 PM Referred By: Confirmed By:GEORGIE SANDOVAL MD
--- NOTE | 2017-06-09 14:59 | PROC ---
Central Line Insertion Indication: Vasopressor Risks and Benefits Explained: Yes Consent on Chart: Yes Central Line: Triple Lumen Catheter Anesthesia: 1% Lidocaine Sterile Technique: Yes Ultrasound Guided Assistance: Yes Position: Right Internal Jugular Post Insertion: Yes: Bilateral Breath Sounds, Bilateral Chest Expansion, Chest X-Ray Ordered Sterile Dressing Applied: Yes Remarks: Central line placement - Triple Lumen Catheter Procedure performed by Dr. Rolly Fernández, with Dr. Darby Melvin and Dr. Canales supervising Pt was positioned in Trendelenberg. U/S evaluation of R IJ showed a dilated IJ superficial and anterior to the common carotid, no thrombus or fibrosis noted. Site was sterilized with chloroprep x3, anesthetized with 1% lidocaine. Access achieved under u/s guidance w/ minimal resistance. Triple lumen advanced to 15cm and sutured in place. Placement confirmed slightly superior to sino-atrial junction with CXR. No pneumo or subQ emphysema noted on CXR. Pt remained hemodynamically stable throughout procedure w/ minimal blood loss. Procedure performed w/ sterile technique. Dr. Rolly Fernández, PGY1
[2017-06-09 15:23] LABS: BASOPHIL (MANUAL) 1 % (0-2.0); TOTAL CELLS COUNTED 100
[2017-06-09 15:24] LABS: PLATELET ESTIMATE SLT INCREASED (NORMAL)
--- NOTE | 2017-06-09 15:24 | PN ---
Teaching Attending Note Name of Resident: Rolly Fernández ATTENDING PHYSICIAN STATEMENT I saw and evaluated the patient. I reviewed the resident's note and discussed the case with the resident. I agree with the resident's findings and plan as documented. SUBJECTIVE: Patient seen and examined in the ICU. Lethargic on NIPPV. Hypotensive. TLC inserted under direct US guidance for access. NE was started for hemodynamic support. Intake & Output 06/06/17 06/07/17 06/08/17 06/09/17 23:59 23:59 23:59 23:59 Intake Total 550 50 Output Total 95 235 Balance 455 -185 Weight 173 lb 15.115 oz 171 lb Last Vital Signs Temp Pulse Resp BP Pulse Ox 97.8 F 68 20 129/59 99 06/09/17 10:00 06/09/17 11:45 06/09/17 11:45 06/09/17 11:45 06/09/17 14:44 Active Medications Albuterol Sulfate (Ventolin 0.083% Nebulizer Soln -) 1 amp NEB Q6H PRN PRN Reason: SHORT OF BREATH/WHEEZING Albuterol/Ipratropium (Duoneb -) 1 amp NEB Q4H DES Heparin Sodium (Porcine) (Heparin -) 5,000 unit SQ TID DES Last Admin: 06/09/17 06:24 Dose: 5,000 unit Dopamine HCl/Dextrose (Dopamine 400 Mg/D5w -) 250 mls @ 14.543 mls/hr IVPB TITR DES; 5 MCG/KG/MIN PRN Reason: Protocol Last Admin: 06/09/17 09:23 Dose: 14.543 mls/hr Sodium Chloride (1/2 Normal Saline) 1,000 mls @ 60 mls/hr IV ASDIR DES Cefepime HCl 0.5 gm/ Dextrose 100 mls @ 200 mls/hr IVPB DAILY DES Norepinephrine Bitartrate 8, (000 mcg/ Sodium Chloride) 1,000 mls @ 37.5 mls/ hr IV TITR DES; 5 MCG/MIN PRN Reason: Protocol Insulin Aspart (Novolog Vial Sliding Scale -) 1 vial SQ ACHS DES PRN Reason: Protocol Last Admin: 06/09/17 06:25 Dose: 2 units Methylprednisolone Sodium Succinate (Solu-Medrol -) 40 mg IVPB Q8H-IV DES Last Admin: 06/09/17 09:53 Dose: 40 mg Constitutional: Yes: Lethargic on NIPPV Eyes: Yes: Cataracts, right surgical pupil HENT: Yes: Atraumatic, Normocephalic Neck: Yes: Trachea Midline Cardiovascular: Yes: Regular Rate and Rhythm Respiratory: Yes: On NIPPV, basilar coarse rhonchi Gastrointestinal: Yes: Soft, Abdomen, Obese, (+) BS Renal/: Yes: Ling Present, Oliguria Edema: No Peripheral Pulses WNL: Yes Integumentary: Yes: WNL Neurological: Yes: Lethargic, awakens to tactile Labs: Laboratory Results - last 24 hr 06/08/17 06/08/17 06/08/17 15:35 15:35 15:35 WBC 25.3 H D RBC 4.16 D Hgb 10.9 L D Hct 34.2 L D MCV 82.1 MCH 26.2 MCHC 31.9 L RDW 16.9 H D Plt Count 654 H D MPV 7.0 L Total Counted 100 Neutrophils % No Result Required. Neutrophils % (Manual) 48 Lymphocytes % No Result Required. Lymphocytes % (Manual) 32 Monocytes % (Manual) 14 H Eosinophils % (Manual) 2 Basophils % (Manual) 2 Myelocytes % (Man) 2 Other Cell Type Platelet Estimate Slt increased PT with INR 14.00 H INR 1.27 H Puncture Site ABG pH ABG pCO2 at Pt Temp ABG pO2 at Pt Temp ABG HCO3 ABG O2 Sat (Measured) ABG O2 Content ABG Base Excess Carrillo Test Carboxyhemoglobin Methemoglobin O2 Delivery Device Oxygen Flow Rate Vent Mode Vent Rate PEEP Pressure Support Vent Sodium Potassium Chloride Carbon Dioxide Anion Gap BUN Creatinine Creat Clearance w eGFR Random Glucose Hemoglobin A1c % Lactic Acid Calcium Phosphorus Magnesium Total Bilirubin AST ALT Alkaline Phosphatase Creatine Kinase Troponin I B-Natriuretic Peptide Total Protein Albumin Triglycerides Cholesterol Total LDL Cholesterol HDL Cholesterol TSH Urine Color Urine Appearance Urine pH Ur Specific [place] Urine Protein Urine Glucose (UA) Urine Ketones Urine Blood Urine Nitrite Urine Bilirubin Urine Urobilinogen Urine RBC Urine WBC Urine Bacteria Urine Mucus Ur Random Sodium Ur Random Potassium Ur Random Chloride Ur Random Urea Nitrogn Urine Creatinine Blood Type O POSITIVE Antibody Screen Negative 06/08/17 06/08/17 06/08/17 15:40 15:40 15:40 WBC RBC Hgb Hct MCV MCH MCHC RDW Plt Count MPV Total Counted Neutrophils % Neutrophils % (Manual) Lymphocytes % Lymphocytes % (Manual) Monocytes % (Manual) Eosinophils % (Manual) Basophils % (Manual) Myelocytes % (Man) Other Cell Type Platelet Estimate PT with INR INR Puncture Site Right radial ABG pH 7.21 L* D ABG pCO2 at Pt Temp 66.9 H* D ABG pO2 at Pt Temp 93.1 D ABG HCO3 25.4 ABG O2 Sat (Measured) 97.1 ABG O2 Content 13.9 L ABG Base Excess -2.9 L Carrillo Test Positive Carboxyhemoglobin 2.2 H Methemoglobin 0.4 O2 Delivery Device Bipap Oxygen Flow Rate 30 Vent Mode Vent Rate 12 PEEP 0.0 Pressure Support Vent 10/5 Sodium 137 Potassium 6.1 H* D Chloride 99 D Carbon Dioxide 26 Anion Gap 12 BUN 87 H D Creatinine 4.8 H D Creat Clearance w eGFR 11.71 Random Glucose 189 H D Hemoglobin A1c % Lactic Acid 1.1 Calcium 8.6 Phosphorus Magnesium 2.8 H D Total Bilirubin 0.3 D AST 17 D ALT 20 D Alkaline Phosphatase 153 H D Creatine Kinase 83 Troponin I 0.66 H* D B-Natriuretic Peptide Total Protein 7.5 Albumin 3.6 D Triglycerides Cholesterol Total LDL Cholesterol HDL Cholesterol TSH Urine Color Urine Appearance Urine pH Ur Specific [place] Urine Protein Urine Glucose (UA) Urine Ketones Urine Blood Urine Nitrite Urine Bilirubin Urine Urobilinogen Urine RBC Urine WBC Urine Bacteria Urine Mucus Ur Random Sodium Ur Random Potassium Ur Random Chloride Ur Random Urea Nitrogn Urine Creatinine Blood Type Antibody Screen 06/08/17 06/08/17 06/08/17 16:00 19:30 19:30 WBC RBC Hgb Hct MCV MCH MCHC RDW Plt Count MPV Total Counted Neutrophils % Neutrophils % (Manual) Lymphocytes % Lymphocytes % (Manual) Monocytes % (Manual) Eosinophils % (Manual) Basophils % (Manual) Myelocytes % (Man) Other Cell Type Platelet Estimate PT with INR INR Puncture Site ABG pH ABG pCO2 at Pt Temp ABG pO2 at Pt Temp ABG HCO3 ABG O2 Sat (Measured) ABG O2 Content ABG Base Excess Carrillo Test Carboxyhemoglobin Methemoglobin O2 Delivery Device Oxygen Flow Rate Vent Mode Vent Rate PEEP Pressure Support Vent Sodium 137 Potassium 5.8 H Chloride 100 Carbon Dioxide 33 H D Anion Gap 4 L BUN 88 H Creatinine 5.2 H Creat Clearance w eGFR Random Glucose 147 H D Hemoglobin A1c % Lactic Acid Calcium 9.1 Phosphorus Magnesium Total Bilirubin AST ALT Alkaline Phosphatase Creatine Kinase Troponin I B-Natriuretic Peptide Total Protein Albumin Triglycerides 127 Cholesterol 162 Total LDL Cholesterol 105 H HDL Cholesterol 32 L TSH Urine Color Dkyellow Urine Appearance Slcloudy Urine pH 5.0 Ur Specific [place] 1.020 Urine Protein 1+ H Urine Glucose (UA) Negative Urine Ketones Negative Urine Blood Negative Urine Nitrite Negative Urine Bilirubin Negative Urine Urobilinogen Negative Urine RBC 7 Urine WBC 39 Urine Bacteria Rare Urine Mucus Rare Ur Random Sodium Ur Random Potassium Ur Random Chloride Ur Random Urea Nitrogn Urine Creatinine Blood Type Antibody Screen 06/08/17 06/08/17 06/08/17 19:30 19:30 20:00 WBC RBC Hgb Hct MCV MCH MCHC RDW Plt Count MPV Total Counted Neutrophils % Neutrophils % (Manual) Lymphocytes % Lymphocytes % (Manual) Monocytes % (Manual) Eosinophils % (Manual) Basophils % (Manual) Myelocytes % (Man) Other Cell Type Platelet Estimate PT with INR INR Puncture Site ABG pH ABG pCO2 at Pt Temp ABG pO2 at Pt Temp ABG HCO3 ABG O2 Sat (Measured) ABG O2 Content ABG Base Excess Carrillo Test Carboxyhemoglobin Methemoglobin O2 Delivery Device Oxygen Flow Rate Vent Mode Vent Rate PEEP Pressure Support Vent Sodium Potassium Chloride Carbon Dioxide Anion Gap BUN Creatinine Creat Clearance w eGFR Random Glucose Hemoglobin A1c % 5.7 Lactic Acid Calcium Phosphorus Magnesium Total Bilirubin AST ALT Alkaline Phosphatase Creatine Kinase Troponin I 0.99 H* D B-Natriuretic Peptide Total Protein Albumin Triglycerides Cholesterol Total LDL Cholesterol HDL Cholesterol TSH Urine Color Urine Appearance Urine pH Ur Specific [place] Urine Protein Urine Glucose (UA) Urine Ketones Urine Blood Urine Nitrite Urine Bilirubin Urine Urobilinogen Urine RBC Urine WBC Urine Bacteria Urine Mucus Ur Random Sodium 46 Ur Random Potassium Ur Random Chloride Ur Random Urea Nitrogn Urine Creatinine Blood Type Antibody Screen 06/08/17 06/08/17 06/08/17 20:00 20:00 20:00 WBC RBC Hgb Hct MCV MCH MCHC RDW Plt Count MPV Total Counted Neutrophils % Neutrophils % (Manual) Lymphocytes % Lymphocytes % (Manual) Monocytes % (Manual) Eosinophils % (Manual) Basophils % (Manual) Myelocytes % (Man) Other Cell Type Platelet Estimate PT with INR INR Puncture Site ABG pH ABG pCO2 at Pt Temp ABG pO2 at Pt Temp ABG HCO3 ABG O2 Sat (Measured) ABG O2 Content ABG Base Excess Carrillo Test Carboxyhemoglobin Methemoglobin O2 Delivery Device Oxygen Flow Rate Vent Mode Vent Rate PEEP Pressure Support Vent Sodium Potassium Chloride Carbon Dioxide Anion Gap BUN Creatinine Creat Clearance w eGFR Random Glucose Hemoglobin A1c % Lactic Acid Calcium Phosphorus Magnesium Total Bilirubin AST ALT Alkaline Phosphatase Creatine Kinase Troponin I B-Natriuretic Peptide Total Protein Albumin Triglycerides Cholesterol Total LDL Cholesterol HDL Cholesterol TSH Urine Color Urine Appearance Urine pH Ur Specific [place] Urine Protein Urine Glucose (UA) Urine Ketones Urine Blood Urine Nitrite Urine Bilirubin Urine Urobilinogen Urine RBC Urine WBC Urine Bacteria Urine Mucus Ur Random Sodium 46 Ur Random Potassium 43.5 Ur Random Chloride < 10 Ur Random Urea Nitrogn 211 Urine Creatinine 222.0 Blood Type Antibody Screen 06/08/17 06/08/17 06/09/17 20:30 20:35 01:35 WBC RBC Hgb Hct MCV MCH MCHC RDW Plt Count MPV Total Counted Neutrophils % Neutrophils % (Manual) Lymphocytes % Lymphocytes % (Manual) Monocytes % (Manual) Eosinophils % (Manual) Basophils % (Manual) Myelocytes % (Man) Other Cell Type Platelet Estimate PT with INR INR Puncture Site Right radial ABG pH 7.19 L* ABG pCO2 at Pt Temp 79.0 H* ABG pO2 at Pt Temp 44.1 L* D ABG HCO3 28.8 H ABG O2 Sat (Measured) 79.1 L ABG O2 Content 10.6 L ABG Base Excess -0.3 Carrillo Test Positive Carboxyhemoglobin Methemoglobin O2 Delivery Device Bi-pap Oxygen Flow Rate 40% Vent Mode S/t Vent Rate 12 PEEP 0.0 Pressure Support Vent 10/5 Sodium Potassium Chloride Carbon Dioxide Anion Gap BUN Creatinine Creat Clearance w eGFR Random Glucose Hemoglobin A1c % Lactic Acid Calcium Phosphorus Magnesium Total Bilirubin AST ALT Alkaline Phosphatase Creatine Kinase Troponin I 0.87 H* B-Natriuretic Peptide 96782.09 H Total Protein Albumin Triglycerides Cholesterol Total LDL Cholesterol HDL Cholesterol TSH Urine Color Urine Appearance Urine pH Ur Specific [place] Urine Protein Urine Glucose (UA) Urine Ketones Urine Blood Urine Nitrite Urine Bilirubin Urine Urobilinogen Urine RBC Urine WBC Urine Bacteria Urine Mucus Ur Random Sodium Ur Random Potassium Ur Random Chloride Ur Random Urea Nitrogn Urine Creatinine Blood Type Antibody Screen 06/09/17 06/09/17 06/09/17 05:10 05:10 05:10 WBC 14.0 H D RBC 3.70 L Hgb 9.9 L Hct 30.2 L MCV 81.6 MCH 26.7 MCHC 32.7 RDW 17.1 H Plt Count 535 H MPV 6.9 L Total Counted Neutrophils % Neutrophils % (Manual) Lymphocytes % Lymphocytes % (Manual) Monocytes % (Manual) Eosinophils % (Manual) Basophils % (Manual) Myelocytes % (Man) Other Cell Type Platelet Estimate PT with INR INR Puncture Site ABG pH ABG pCO2 at Pt Temp ABG pO2 at Pt Temp ABG HCO3 ABG O2 Sat (Measured) ABG O2 Content ABG Base Excess Carrillo Test Carboxyhemoglobin Methemoglobin O2 Delivery Device Oxygen Flow Rate Vent Mode Vent Rate PEEP Pressure Support Vent Sodium 139 Potassium 6.7 H* Chloride 99 Carbon Dioxide 29 Anion Gap 11 BUN 94 H Creatinine 5.1 H Creat Clearance w eGFR Random Glucose 173 H Hemoglobin A1c % Lactic Acid Calcium 8.9 Phosphorus 6.1 H D Magnesium 2.8 H Total Bilirubin AST ALT Alkaline Phosphatase Creatine Kinase 50 Troponin I 0.73 H* B-Natriuretic Peptide Total Protein Albumin Triglycerides Cholesterol Total LDL Cholesterol HDL Cholesterol TSH 0.17 L Urine Color Urine Appearance Urine pH Ur Specific [place] Urine Protein Urine Glucose (UA) Urine Ketones Urine Blood Urine Nitrite Urine Bilirubin Urine Urobilinogen Urine RBC Urine WBC Urine Bacteria Urine Mucus Ur Random Sodium Ur Random Potassium Ur Random Chloride Ur Random Urea Nitrogn Urine Creatinine Blood Type Antibody Screen 06/09/17 06/09/17 06/09/17 05:10 09:30 10:30 WBC RBC Hgb Hct MCV MCH MCHC RDW Plt Count MPV Total Counted Neutrophils % Neutrophils % (Manual) Lymphocytes % Lymphocytes % (Manual) Monocytes % (Manual) Eosinophils % (Manual) Basophils % (Manual) Myelocytes % (Man) Other Cell Type Platelet Estimate PT with INR INR Puncture Site ABG pH ABG pCO2 at Pt Temp ABG pO2 at Pt Temp ABG HCO3 ABG O2 Sat (Measured) ABG O2 Content ABG Base Excess Carrillo Test Carboxyhemoglobin Methemoglobin O2 Delivery Device Oxygen Flow Rate Vent Mode Vent Rate PEEP Pressure Support Vent Sodium 137 Potassium 6.0 H Chloride 101 Carbon Dioxide 27 Anion Gap 9 BUN 96 H Creatinine 5.2 H Creat Clearance w eGFR Random Glucose 228 H D Hemoglobin A1c % Lactic Acid 1.5 Calcium 9.3 Phosphorus Magnesium Total Bilirubin AST ALT Alkaline Phosphatase Creatine Kinase Troponin I B-Natriuretic Peptide Total Protein Albumin Triglycerides Cholesterol Total LDL Cholesterol HDL Cholesterol TSH Cancelled Urine Color Urine Appearance Urine pH Ur Specific [place] Urine Protein Urine Glucose (UA) Urine Ketones Urine Blood Urine Nitrite Urine Bilirubin Urine Urobilinogen Urine RBC Urine WBC Urine Bacteria Urine Mucus Ur Random Sodium Ur Random Potassium Ur Random Chloride Ur Random Urea Nitrogn Urine Creatinine Blood Type Antibody Screen 06/09/17 14:00 WBC 15.3 H RBC 4.04 Hgb 10.6 L Hct 32.6 L MCV 80.8 MCH 26.2 MCHC 32.4 RDW 16.6 H Plt Count 562 H MPV 6.4 L Total Counted Neutrophils % No Result Required. Neutrophils % (Manual) Lymphocytes % No Result Required. Lymphocytes % (Manual) Monocytes % (Manual) Eosinophils % (Manual) Basophils % (Manual) Myelocytes % (Man) Other Cell Type Platelet Estimate PT with INR INR Puncture Site ABG pH ABG pCO2 at Pt Temp ABG pO2 at Pt Temp ABG HCO3 ABG O2 Sat (Measured) ABG O2 Content ABG Base Excess Carrillo Test Carboxyhemoglobin Methemoglobin O2 Delivery Device Oxygen Flow Rate Vent Mode Vent Rate PEEP Pressure Support Vent Sodium Potassium Chloride Carbon Dioxide Anion Gap BUN Creatinine Creat Clearance w eGFR Random Glucose Hemoglobin A1c % Lactic Acid Calcium Phosphorus Magnesium Total Bilirubin AST ALT Alkaline Phosphatase Creatine Kinase Troponin I B-Natriuretic Peptide Total Protein Albumin Triglycerides Cholesterol Total LDL Cholesterol HDL Cholesterol TSH Urine Color Urine Appearance Urine pH Ur Specific [place] Urine Protein Urine Glucose (UA) Urine Ketones Urine Blood Urine Nitrite Urine Bilirubin Urine Urobilinogen Urine RBC Urine WBC Urine Bacteria Urine Mucus Ur Random Sodium Ur Random Potassium Ur Random Chloride Ur Random Urea Nitrogn Urine Creatinine Blood Type Antibody Screen Problem List - Problems (1) Acute on chronic renal failure Code(s): N17.9 - ACUTE KIDNEY FAILURE, UNSPECIFIED N18.9 - CHRONIC KIDNEY DISEASE, UNSPECIFIED (2) Acute respiratory failure with hypoxia and hypercarbia Code(s): J96.01 - ACUTE RESPIRATORY FAILURE WITH HYPOXIA J96.02 - ACUTE RESPIRATORY FAILURE WITH HYPERCAPNIA (3) Altered mental status Code(s): R41.82 - ALTERED MENTAL STATUS, UNSPECIFIED (4) Acute CHF (congestive heart failure) Code(s): I50.9 - HEART FAILURE, UNSPECIFIED Qualifiers: Congestive heart failure type: unspecified congestive heart failure type Qualified Code(s): I50.9 - Heart failure, unspecified; I50.9 - Heart failure , unspecified; I50.9 - Heart failure, unspecified; I50.9 - Heart failure, unspecified (5) Acute renal failure Code(s): N17.9 - ACUTE KIDNEY FAILURE, UNSPECIFIED (6) Anemia Code(s): D64.9 - ANEMIA, UNSPECIFIED (7) CAD (coronary artery disease) Code(s): I25.10 - ATHSCL HEART DISEASE OF [place] CORONARY ARTERY W/O ANG PCTRS Qualifiers: Coronary Disease-Associated Artery/Lesion type: [place] artery [place] vs. transplanted heart: [place] heart Associated angina: without angina Qualified Code(s): I25.10 - Atherosclerotic heart disease of [place] coronary artery without angina pectoris; I25.10 - Atherosclerotic heart disease of [place] coronary artery without angina pectoris; I25.10 - Atherosclerotic heart disease of [place] coronary artery without angina pectoris (8) CHF (congestive heart failure) Code(s): I50.9 - HEART FAILURE, UNSPECIFIED Assessment/Plan Acute Hypercapneic Respiratory Failure COPD HTN (?) PNA Acute on Chronic Renal Failure UTI Sepsis Possible component of Cardiogenic Shock PPM CAD NIPPV support Aspiration precautions ABX per ID Strict I&O Follow cultures Judicious IVF Medical management of Hyperkalemia : family has deferred HD Hold all sedatives VTE prophylaxis DNR/DNI Dr Canales Critical care time spent in reviewing chart, evaluating patient and formulating plan - 36 minutes.
[2017-06-09] MEDS ORDERED: SODIUM POLYSTYRENE SULFONATE 15 GM/60 ML BOTTLE RC ONE (15:40)
[2017-06-09] MEDS ORDERED: ALBUTEROL SO4 0.083% IH SOL 2.5 MG/3 ML VIAL.NEB. NEB ONE ×2 (15:41→17:54)
[2017-06-09] MEDS ORDERED: SODIUM CHLORIDE 0.45% 1,000 ML IV SCH (15:45)
--- NOTE | 2017-06-09 15:59 | PN ---
Teaching Attending Note Name of Resident: Kaleigh Puentes (Nephrology) ATTENDING PHYSICIAN STATEMENT I saw and evaluated the patient. I reviewed the resident's note and discussed the case with the resident. I agree with the resident's findings and plan as documented. Nephrology Consult Pt is an 81 year old male with pmhx of CKD, GI bleed, CLL, CHF and dementia who was sent in for change in mental status. He was admitted to the ICU for Bipap. He was found to be in acute renal failure and I was called to evaluate him. PT is unable to give history. I discussed his care with his family. pmhx anemia cll chf htn ros unable to answer quest family hx non contrib nkda Current Medications Generic Name Dose Route Start Last Admin Trade Name Freq PRN Reason Stop Dose Admin Albuterol Sulfate 1 amp 06/08/17 22:21 Ventolin 0.083% Nebulizer Soln - NEB Q6H PRN SHORT OF BREATH/WHEEZING Albuterol Sulfate 3 amp 06/09/17 15:41 Ventolin 0.083% Nebulizer Soln - NEB 06/09/17 15:42 ONCE ONE Albuterol/Ipratropium 1 amp 06/09/17 18:00 Duoneb - NEB Q4H DES Dextrose gm 06/09/17 15:41 D50w (Vial) - IVPUSH 06/09/17 15:42 NOW ONE Heparin Sodium (Porcine) 5,000 unit 06/08/17 22:00 06/09/17 15:33 Heparin - SQ 5,000 unit TID DES Administration Dopamine HCl/Dextrose 250 mls @ 14.543 mls/hr 06/09/17 09:00 06/09/17 09:23 Dopamine 400 Mg/D5w - IVPB 14.543 mls/hr TITR DES Administration Protocol 5 MCG/KG/MIN Sodium Chloride 1,000 mls @ 60 mls/hr 06/09/17 10:45 06/09/17 11:00 1/2 Normal Saline IV 60 mls/hr ASDIR DES Administration Cefepime HCl 0.5 gm/ Dextrose 100 mls @ 200 mls/hr 06/10/17 10:00 IVPB DAILY DES Norepinephrine Bitartrate 8, 500 mls @ 8.72 mls/hr 06/09/17 15:45 000 mcg/ Dextrose IV ASDIR DES Protocol 0.03 MCG/KG/MIN Sodium Chloride 1,000 mls @ 42 mls/hr 06/09/17 15:45 1/2 Normal Saline IV 06/10/17 00:00 ASDIR DES Insulin Aspart 1 vial 06/08/17 22:00 06/09/17 12:00 Novolog Vial Sliding Scale - SQ 6 units ACHS DES Administration Protocol Insulin Human Regular 10 units 06/09/17 15:41 Novolin R Vial *For Ivpush Or Iv Drip Only* IVPUSH 06/09/17 15:42 ONCE ONE Methylprednisolone Sodium Succinate 40 mg 06/08/17 18:45 06/09/17 09:53 Solu-Medrol - IVPB 40 mg Q8H-IV DES Administration Sodium Polystyrene Sulfonate 30 gm 06/09/17 15:40 Kayexalate - RC 06/09/17 15:41 ONCE ONE Last Vital Signs Temp Pulse Resp BP Pulse Ox 98 F 67 20 132/66 99 06/09/17 14:00 06/09/17 14:00 06/09/17 14:00 06/09/17 14:00 06/09/17 14:44 Laboratory Tests 06/21/16 06/22/16 06/08/17 10:00 06:00 15:35 WBC 25.3 H D Hgb Plt Count Sodium Potassium Chloride Carbon Dioxide Anion Gap BUN Creatinine 2.9 H 2.4 H Troponin I Urine Protein Ur Random Sodium Ur Random Urea Nitrogn Urine Creatinine 06/08/17 06/08/17 06/08/17 16:00 20:00 20:00 WBC Hgb Plt Count Sodium Potassium Chloride Carbon Dioxide Anion Gap BUN Creatinine Troponin I Urine Protein 1+ H Ur Random Sodium Ur Random Urea Nitrogn 211 Urine Creatinine 222.0 06/08/17 06/09/17 06/09/17 20:00 05:10 05:10 WBC 14.0 H D Hgb Plt Count Sodium 139 Potassium 6.7 H* Chloride 99 Carbon Dioxide 29 Anion Gap 11 BUN 94 H Creatinine 5.1 H Troponin I Urine Protein Ur Random Sodium 46 Ur Random Urea Nitrogn Urine Creatinine 06/09/17 06/09/17 06/09/17 05:10 10:30 14:00 WBC 15.3 H Hgb 10.6 L Plt Count 562 H Sodium 137 Potassium 6.0 H Chloride 101 Carbon Dioxide 27 Anion Gap 9 BUN 96 H Creatinine 5.2 H Troponin I 0.73 H* Urine Protein Ur Random Sodium Ur Random Urea Nitrogn Urine Creatinine cardio s1s2 pulm on bipap GI soft rodriguez present neuro lethargic Impression 1. SIOBHAN 2. hx of CKD 3. hyperkalemia 4. anemia 5. hx GI bleed 6. dementia 7. CLL 8. CHF 9. HTN 10. thrombocytosis Plan - discussed HD with family and his son who is the HCP. I offered HD therapy however they are not sure if they want [employer] at this point - will treat potassium medically - can start gentle hydration - cont bipap - daily cxr - discussed at length with ICU team - cxr reviewed - labs and meds reviewed - hold jaison - monitor urine output - cont presors for hypotension, target map is 65 Dr Armas
[2017-06-09] MEDS ORDERED: ALBUTEROL SO4 0.5 % INH SOLN 2.5 MG/0.5 ML VIAL.NEB. NEB ONE (17:33)
[2017-06-09 21:36] LABS: ARTERIAL BLD GAS O2 SATURATION 97.2 % (90-98.9); ARTERIAL BLOOD GAS HCO3 26.8 meq/L (22-26); ARTERIAL BLOOD GAS PO2 86.4 mmHg (68-100)
[2017-06-09 21:37] LABS: ARTERIAL BLOOD GAS pH 7.28 (7.35-7.45)
[2017-06-09 21:38] LABS: ALLENS TEST POSITIVE; ART PUNCT SITE RIGHT RADIAL; LPM/O2% 40%; MECH. VENT. BIPAP; PT. ON O2? YES; TYPE OF O2 OT; VENT RATE 20; VT/PRESS 15/7
[2017-06-10] MEDS: ALBUTEROL SO4 2.5/IPRATROPIUM 0.5 INH SOL 3 ML VIAL.NEB. NEB SCH ×6 (01:30→22:02)
[2017-06-10] MEDS: methylPREDNISolone NA SUCC 40 MG/1 ML VIAL IVPB SCH ×3 (02:00→18:58)
[2017-06-10 05:58] LABS: MCH 26.5 pg (25.7-33.7); MCHC 32.9 g/dl (32.0-35.9); MEAN CELL VOLUME 80.7 fl (80-96); MEAN PLT VOLUME 7.1 fl (7.5-11.1); PLATELET COUNT 629 K/MM3 (134-434); RDW 16.2 % (11.9-15.9); WHITE BLOOD COUNT 21.2 K/mm3 (4.0-10.0)
[2017-06-10] MEDS ORDERED: morphine CARPU-JECT 2 MG/1 ML DISP.SYRIN IVPUSH ONE (06:01)
[2017-06-10] MEDS: HEPARIN NA (PORCINE) 5,000 UNITS/ML 1ML VIAL SQ SCH ×3 (06:26→21:15)
[2017-06-10] MEDS: INSULIN SLIDING SCALE (NOVOLOG) 1 VIAL SQ SCH ×4 (06:30→21:21)
[2017-06-10 06:35] LABS: ANION GAP 7 (8-16); CALCIUM 9.2 mg/dL (8.5-10.1); CO2 28 mmol/L (21-32); GLUCOSE,RANDOM 138 mg/dL (74-106); MAGNESIUM 2.7 mg/dL (1.8-2.4); PHOSPHOROUS 5.1 mg/dL (2.5-4.9); SGOT/AST 15 U/L (15-37); SGPT/ALT 18 U/L (12-78)
[2017-06-10 06:37] LABS: ALK PHOS 114 U/L (45-117); BILIRUBIN,TOTAL 0.3 mg/dL (0.2-1.0); TOT PROT 6.7 g/dl (6.4-8.2)
--- NOTE | 2017-06-10 06:55 | PN ---
Physical Exam: Consulting Specialty: Infectious Disease SUBJECTIVE: Yesterday patient had central line placed via R IJ due to increased pressor support with Levophed. Afebrile for past 24hrs. Currently Dopamine 5mcg/ kg/min and Levophed 0.03mcg/kg/min. Pt remains on BiPAP however is more alert and responsive to verbal stimuli than previous. Pt currently denies chest and abdominal pain/discomfort. Continues to be SOB. OBJECTIVE: Vital Signs Period Temp Pulse Resp BP Sys/Valenzuela Pulse Ox Last 24 Hr 97.8 F-98.3 F 61-79 20-22 82-154/40-70 96-100 GENERAL: Mild-mod distress. Pt in bed with BiPap. Alert to verbal stimulus. HEENT: EOMI, PERRL, moist mucosa. No plaques noted. NECK: R IJ central line intact. Site clean and dry. No purulence noted. Covered with Tecaderm tape. LUNGS: Rhonchous breath sounds bilaterally. No rales appreciated. On BiPap currently HEART: RRR, no murmurs appreciated. ABDOMEN: Soft, nontender, non-distended. : Ling intact. Clear, yellow urine in tank. Minimal output. EXTREMITIES: No edema. No rashes or lesions noted NEUROLOGICAL: Alert and oriented to hospital and name Laboratory Results - last 24 hr 06/08/17 06/09/17 06/09/17 19:30 05:10 05:10 WBC RBC Hgb Hct MCV MCH MCHC RDW Plt Count MPV Total Counted Neutrophils % Neutrophils % (Manual) Lymphocytes % Lymphocytes % (Manual) Monocytes % (Manual) Basophils % (Manual) Platelet Estimate Puncture Site ABG pH ABG pCO2 at Pt Temp ABG pO2 at Pt Temp ABG HCO3 ABG O2 Sat (Measured) ABG O2 Content ABG Base Excess Carrillo Test O2 Delivery Device Oxygen Flow Rate Vent Mode Vent Rate Mechanical Rate PEEP Pressure Support Vent Sodium 139 Potassium 6.7 H* Plasma Potassium Chloride 99 Carbon Dioxide 29 Anion Gap 11 BUN 94 H Creatinine 5.1 H Creat Clearance w eGFR Random Glucose 173 H Hemoglobin A1c % 5.7 Lactic Acid Calcium 8.9 Phosphorus 6.1 H D Magnesium 2.8 H Total Bilirubin AST ALT Alkaline Phosphatase Creatine Kinase 50 Troponin I 0.73 H* Total Protein Albumin TSH 0.17 L Total T3 06/09/17 06/09/17 06/09/17 05:10 09:30 09:30 WBC RBC Hgb Hct MCV MCH MCHC RDW Plt Count MPV Total Counted Neutrophils % Neutrophils % (Manual) Lymphocytes % Lymphocytes % (Manual) Monocytes % (Manual) Basophils % (Manual) Platelet Estimate Puncture Site ABG pH ABG pCO2 at Pt Temp ABG pO2 at Pt Temp ABG HCO3 ABG O2 Sat (Measured) ABG O2 Content ABG Base Excess Carrillo Test O2 Delivery Device Oxygen Flow Rate Vent Mode Vent Rate Mechanical Rate PEEP Pressure Support Vent Sodium Potassium Plasma Potassium Chloride Carbon Dioxide Anion Gap BUN Creatinine Creat Clearance w eGFR Random Glucose Hemoglobin A1c % Lactic Acid 1.5 Calcium Phosphorus Magnesium Total Bilirubin AST ALT Alkaline Phosphatase Creatine Kinase Troponin I Total Protein Albumin TSH Cancelled Total T3 64.00 L 06/09/17 06/09/17 06/09/17 10:30 14:00 18:15 WBC 15.3 H RBC 4.04 Hgb 10.6 L Hct 32.6 L MCV 80.8 MCH 26.2 MCHC 32.4 RDW 16.6 H Plt Count 562 H MPV 6.4 L Total Counted 100 Neutrophils % No Result Required. Neutrophils % (Manual) 67 D Lymphocytes % No Result Required. Lymphocytes % (Manual) 31 Monocytes % (Manual) 1 L D Basophils % (Manual) 1 Platelet Estimate Slt increased Puncture Site ABG pH ABG pCO2 at Pt Temp ABG pO2 at Pt Temp ABG HCO3 ABG O2 Sat (Measured) ABG O2 Content ABG Base Excess Carrillo Test O2 Delivery Device Oxygen Flow Rate Vent Mode Vent Rate Mechanical Rate PEEP Pressure Support Vent Sodium 137 Potassium 6.0 H Plasma Potassium 4.8 Chloride 101 Carbon Dioxide 27 Anion Gap 9 BUN 96 H Creatinine 5.2 H Creat Clearance w eGFR Random Glucose 228 H D Hemoglobin A1c % Lactic Acid Calcium 9.3 Phosphorus Magnesium Total Bilirubin AST ALT Alkaline Phosphatase Creatine Kinase Troponin I Total Protein Albumin TSH Total T3 06/09/17 06/10/17 06/10/17 21:30 05:20 05:20 WBC 21.2 H D RBC 3.64 L Hgb 9.7 L Hct 29.4 L MCV 80.7 MCH 26.5 MCHC 32.9 RDW 16.2 H Plt Count 629 H MPV 7.1 L D Total Counted Neutrophils % Neutrophils % (Manual) Lymphocytes % Lymphocytes % (Manual) Monocytes % (Manual) Basophils % (Manual) Platelet Estimate Puncture Site Right radial ABG pH 7.28 L ABG pCO2 at Pt Temp 58.4 H D ABG pO2 at Pt Temp 86.4 D ABG HCO3 26.8 H ABG O2 Sat (Measured) 97.2 ABG O2 Content 13.4 L ABG Base Excess 0.0 Carrillo Test Positive O2 Delivery Device Ot Oxygen Flow Rate 40% Vent Mode St Vent Rate 20 Mechanical Rate Bipap PEEP 0.0 Pressure Support Vent 15/7 Sodium 138 Potassium 5.4 H Plasma Potassium Chloride 103 Carbon Dioxide 28 Anion Gap 7 L BUN 94 H Creatinine 4.0 H D Creat Clearance w eGFR 14.45 Random Glucose 138 H D Hemoglobin A1c % Lactic Acid Calcium 9.2 Phosphorus 5.1 H Magnesium 2.7 H Total Bilirubin 0.3 AST 15 ALT 18 Alkaline Phosphatase 114 D Creatine Kinase Troponin I Total Protein 6.7 Albumin 3.0 L TSH Total T3 Active Medications Generic Name Dose Route Start Last Admin Trade Name Freq PRN Reason Stop Dose Admin Albuterol Sulfate 1 amp 06/08/17 22:21 Ventolin 0.083% Nebulizer Soln - NEB Q6H PRN SHORT OF BREATH/WHEEZING Albuterol/Ipratropium 1 amp 06/09/17 18:00 06/10/17 05:39 Duoneb - NEB 1 amp Q4H DES Administration Heparin Sodium (Porcine) 5,000 unit 06/08/17 22:00 06/10/17 06:26 Heparin - SQ 5,000 unit TID DES Administration Dopamine HCl/Dextrose 250 mls @ 14.543 mls/hr 06/09/17 09:00 06/09/17 09:23 Dopamine 400 Mg/D5w - IVPB 14.543 mls/hr TITR DES Administration Protocol 5 MCG/KG/MIN Sodium Chloride 1,000 mls @ 60 mls/hr 06/09/17 10:45 06/09/17 11:00 1/2 Normal Saline IV 60 mls/hr ASDIR DES Administration Cefepime HCl 0.5 gm/ Dextrose 100 mls @ 200 mls/hr 06/10/17 10:00 IVPB DAILY DES Norepinephrine Bitartrate 8, 500 mls @ 8.72 mls/hr 06/09/17 15:45 06/09/17 22: 00 000 mcg/ Dextrose IV 0.02 mcg/kg/min ASDIR DES Titration Protocol 0.03 MCG/KG/MIN Insulin Aspart 1 vial 06/08/17 22:00 06/10/17 06:30 Novolog Vial Sliding Scale - SQ Not Given ACHS DES Protocol Methylprednisolone Sodium Succinate 40 mg 06/08/17 18:45 06/10/17 02:00 Solu-Medrol - IVPB 40 mg Q8H-IV DES Administration ASSESSMENT: UTI CLL Acute COPD exacerbation PLAN: Day 2 of Cefepime currently --Pt maintained on pressor support, but respiratory status improving --Continue Cefepime dosed for current CrClearance (0.5gm IV today) ? septic shock vs. main component of instability attributed to acute respiratory failure Increase in leukocytosis unreliable due to past history of CLL and currently being maintained on methylprednisone 40mg Critical care time spent ~35 min including chart review Case discussed with Dr. Connie Mendoza, DO - Internal Medicine PGY-1 Problem List - Problems (1) Renal insufficiency Code(s): N28.9 - DISORDER OF KIDNEY AND URETER, UNSPECIFIED (2) Urinary tract infection Code(s): N39.0 - URINARY TRACT INFECTION, SITE NOT SPECIFIED (3) Chronic lymphocytic leukemia Code(s): C91.10 - CHRONIC LYMPHOCYTIC LEUK OF B-CELL TYPE NOT ACHIEVE REMIS Visit type - Emergency Visit Emergency Visit: No - New Patient This patient is new to me today: No - Critical Care Critical Care patient: Yes Total Critical Care Time (in minutes): 35 Critical Care Statement: The care of this patient involved high complexity decision making to prevent further life threatening deterioration of the patient 's condition and/or to evaluate & treat vital organ system(s) failure or risk of failure.
--- NOTE | 2017-06-10 07:20 | PN ---
Progress Note, Physician Chief Complaint: ID Remains on Cefepime for treatment of UTI BIPBAP - Current Medication List Current Medications: Active Medications Albuterol Sulfate (Ventolin 0.083% Nebulizer Soln -) 1 amp NEB Q6H PRN PRN Reason: SHORT OF BREATH/WHEEZING Albuterol/Ipratropium (Duoneb -) 1 amp NEB Q4H DES Last Admin: 06/10/17 05:39 Dose: 1 amp Heparin Sodium (Porcine) (Heparin -) 5,000 unit SQ TID DES Last Admin: 06/10/17 06:26 Dose: 5,000 unit Dopamine HCl/Dextrose (Dopamine 400 Mg/D5w -) 250 mls @ 14.543 mls/hr IVPB TITR DES; 5 MCG/KG/MIN PRN Reason: Protocol Last Admin: 06/09/17 09:23 Dose: 14.543 mls/hr Sodium Chloride (1/2 Normal Saline) 1,000 mls @ 60 mls/hr IV ASDIR DES Last Admin: 06/09/17 11:00 Dose: 60 mls/hr Cefepime HCl 0.5 gm/ Dextrose 100 mls @ 200 mls/hr IVPB DAILY DES Norepinephrine Bitartrate 8, (000 mcg/ Dextrose) 500 mls @ 8.72 mls/hr IV ASDIR DES; 0.03 MCG/KG/MIN PRN Reason: Protocol Last Titration: 06/09/17 22:00 Dose: 0.02 mcg/kg/min Insulin Aspart (Novolog Vial Sliding Scale -) 1 vial SQ ACHS DES PRN Reason: Protocol Last Admin: 06/10/17 06:30 Dose: Not Given Methylprednisolone Sodium Succinate (Solu-Medrol -) 40 mg IVPB Q8H-IV DES Last Admin: 06/10/17 02:00 Dose: 40 mg - Objective Vital Signs: Vital Signs Temperature 98.2 F 06/10/17 06:00 Pulse Rate 79 06/10/17 06:00 Respiratory Rate 20 06/10/17 06:00 Blood Pressure 154/67 06/10/17 06:00 O2 Sat by Pulse Oximetry (%) 100 06/10/17 07:04 Constitutional: Yes: No Distress Neck: Yes: WNL, Supple Cardiovascular: Yes: Regular Rate and Rhythm, S1, S2 Respiratory: Yes: Rhonchi Gastrointestinal: Yes: Soft. No: Tenderness Edema: No Labs: CBC, BMP 06/10/17 05:20 06/10/17 05:20 INR, PTT INR 1.27 (0.82-1.09) H 06/08/17 15:35 Assessment/Plan Laboratory Tests 06/10/17 06/10/17 05:20 05:20 WBC 21.2 H D Hgb 9.7 L Hct 29.4 L Plt Count 629 H BUN 94 H Assessment Urinary tract infection partially treated in the retirement Acute renal failure on chronic Plan Pending culture continue Cefepime with consideration of Switch donavan Rosales MD
[2017-06-10 07:25] LABS: ARTERIAL BLD GAS O2 SATURATION 98.1 % (90-98.9); ARTERIAL BLOOD GAS BASE EXCESS 0.7 meq/l (-2-2); ARTERIAL BLOOD GAS HCO3 26.7 meq/L (22-26); ARTERIAL BLOOD GAS PO2 98.1 mmHg (68-100); ARTERIAL BLOOD GAS pH 7.32 (7.35-7.45)
[2017-06-10 07:27] LABS: ALLENS TEST POSITIVE; ART PUNCT SITE LEFT RADIAL; LPM/O2% 40%; MECH. VENT. BIPAP; PT. ON O2? YES; TYPE OF O2 BIPAP
[2017-06-10 07:28] LABS: VENT RATE 20; VT/PRESS 15/7
--- NOTE | 2017-06-10 08:17 | PN ---
Progress Note, Physician Chief Complaint: More alert Conversant TELE: reviewed, no sig arrhythmias History of Present Illness: Echo: normal LV fxn, no sig valve dz - Current Medication List Current Medications: Active Medications Albuterol Sulfate (Ventolin 0.083% Nebulizer Soln -) 1 amp NEB Q6H PRN PRN Reason: SHORT OF BREATH/WHEEZING Albuterol/Ipratropium (Duoneb -) 1 amp NEB Q4H DES Last Admin: 06/10/17 05:39 Dose: 1 amp Heparin Sodium (Porcine) (Heparin -) 5,000 unit SQ TID DES Last Admin: 06/10/17 06:26 Dose: 5,000 unit Dopamine HCl/Dextrose (Dopamine 400 Mg/D5w -) 250 mls @ 14.543 mls/hr IVPB TITR DES; 5 MCG/KG/MIN PRN Reason: Protocol Last Admin: 06/09/17 09:23 Dose: 14.543 mls/hr Sodium Chloride (1/2 Normal Saline) 1,000 mls @ 60 mls/hr IV ASDIR DES Last Admin: 06/09/17 11:00 Dose: 60 mls/hr Cefepime HCl 0.5 gm/ Dextrose 100 mls @ 200 mls/hr IVPB DAILY DES Norepinephrine Bitartrate 8, (000 mcg/ Dextrose) 500 mls @ 8.72 mls/hr IV ASDIR DES; 0.03 MCG/KG/MIN PRN Reason: Protocol Last Titration: 06/09/17 22:00 Dose: 0.02 mcg/kg/min Insulin Aspart (Novolog Vial Sliding Scale -) 1 vial SQ ACHS DES PRN Reason: Protocol Last Admin: 06/10/17 06:30 Dose: Not Given Methylprednisolone Sodium Succinate (Solu-Medrol -) 40 mg IVPB Q8H-IV DES Last Admin: 06/10/17 02:00 Dose: 40 mg - Objective Vital Signs: Vital Signs Temperature 98.2 F 06/10/17 06:00 Pulse Rate 80 06/10/17 08:00 Respiratory Rate 20 06/10/17 08:10 Blood Pressure 124/80 06/10/17 08:00 O2 Sat by Pulse Oximetry (%) 100 06/10/17 08:10 Constitutional: Yes: Calm Cardiovascular: Yes: Regular Rate and Rhythm Respiratory: Yes: Other (decreased at bases, no whezzing) Gastrointestinal: Yes: Soft (nontender) Edema: No Neurological: Yes: Alert Labs: CBC, BMP 06/10/17 05:20 06/10/17 05:20 INR, PTT INR 1.27 (0.82-1.09) H 06/08/17 15:35 - ....Imaging X-ray: Image Reviewed EKG: Image Reviewed Assessment/Plan IMP: Acute on chronic renal failure with hyperkalemia Sepsis secondary to UTI Chronic COPD DM PAD History of CAD REC: Mildly elevated TnI with normal CK in this patient is due to acute on chronic renal failure and systemic infection (UTI). Do not suspect acute coronary syndrome as ECG is not suggestive and clinical picture supports sepsis from urinary source. LV function is normal, without wall motion abnormalities. REC: 1. Abx, supplimental O2 (BiPAP), follow cultures 2. Continue renal follow up. 3. Can give ASA 81mg daily and continue telemetry. If patient develops tachycardia, can use Metoprolol 5mg IV q4H PRN if BP allows. Can consider interval Persantine MIBI for further risk stratification when he recovers fully, but would need to discuss with him first and assess his goals of care and willingness to undergo further testing at his advanced age. DNR/DNI Thanks.
--- NOTE | 2017-06-10 08:59 | PN ---
Progress Note, Physician Chief Complaint: Awake today on BIPAP No complaints except for generalized body pain - Current Medication List Current Medications: Active Medications Albuterol Sulfate (Ventolin 0.083% Nebulizer Soln -) 1 amp NEB Q6H PRN PRN Reason: SHORT OF BREATH/WHEEZING Albuterol/Ipratropium (Duoneb -) 1 amp NEB Q4H DES Last Admin: 06/10/17 05:39 Dose: 1 amp Heparin Sodium (Porcine) (Heparin -) 5,000 unit SQ TID DES Last Admin: 06/10/17 06:26 Dose: 5,000 unit Dopamine HCl/Dextrose (Dopamine 400 Mg/D5w -) 250 mls @ 14.543 mls/hr IVPB TITR DES; 5 MCG/KG/MIN PRN Reason: Protocol Last Admin: 06/09/17 09:23 Dose: 14.543 mls/hr Sodium Chloride (1/2 Normal Saline) 1,000 mls @ 60 mls/hr IV ASDIR DES Last Admin: 06/09/17 11:00 Dose: 60 mls/hr Cefepime HCl 0.5 gm/ Dextrose 100 mls @ 200 mls/hr IVPB DAILY DES Norepinephrine Bitartrate 8, (000 mcg/ Dextrose) 500 mls @ 8.72 mls/hr IV ASDIR DES; 0.03 MCG/KG/MIN PRN Reason: Protocol Last Titration: 06/09/17 22:00 Dose: 0.02 mcg/kg/min Insulin Aspart (Novolog Vial Sliding Scale -) 1 vial SQ ACHS DES PRN Reason: Protocol Last Admin: 06/10/17 06:30 Dose: Not Given Methylprednisolone Sodium Succinate (Solu-Medrol -) 40 mg IVPB Q8H-IV DES Last Admin: 06/10/17 02:00 Dose: 40 mg - Objective Vital Signs: Vital Signs Temperature 98.2 F 06/10/17 06:00 Pulse Rate 80 06/10/17 08:00 Respiratory Rate 20 06/10/17 08:10 Blood Pressure 124/80 06/10/17 08:00 O2 Sat by Pulse Oximetry (%) 100 06/10/17 08:10 Constitutional: Yes: No Distress, Calm Cardiovascular: Yes: Regular Rate and Rhythm Respiratory: Yes: Diminished Gastrointestinal: Yes: Normal Bowel Sounds, Soft, Abdomen, Obese. No: Distention, Tenderness Edema: Yes Labs: CBC, BMP 06/10/17 05:20 06/10/17 05:20 INR, PTT INR 1.27 (0.82-1.09) H 06/08/17 15:35 Problem List - Problems (1) Acute on chronic renal failure Code(s): N17.9 - ACUTE KIDNEY FAILURE, UNSPECIFIED N18.9 - CHRONIC KIDNEY DISEASE, UNSPECIFIED (2) Acute respiratory failure with hypoxia and hypercarbia Code(s): J96.01 - ACUTE RESPIRATORY FAILURE WITH HYPOXIA J96.02 - ACUTE RESPIRATORY FAILURE WITH HYPERCAPNIA (3) Altered mental status Code(s): R41.82 - ALTERED MENTAL STATUS, UNSPECIFIED (4) Chronic lymphocytic leukemia Code(s): C91.10 - CHRONIC LYMPHOCYTIC LEUK OF B-CELL TYPE NOT ACHIEVE REMIS (5) Acute CHF (congestive heart failure) Code(s): I50.9 - HEART FAILURE, UNSPECIFIED Qualifiers: Congestive heart failure type: unspecified congestive heart failure type Qualified Code(s): I50.9 - Heart failure, unspecified; I50.9 - Heart failure , unspecified; I50.9 - Heart failure, unspecified; I50.9 - Heart failure, unspecified (6) Acute renal failure Code(s): N17.9 - ACUTE KIDNEY FAILURE, UNSPECIFIED (7) Anemia Code(s): D64.9 - ANEMIA, UNSPECIFIED (8) CAD (coronary artery disease) Code(s): I25.10 - ATHSCL HEART DISEASE OF [place] CORONARY ARTERY W/O ANG PCTRS Qualifiers: Coronary Disease-Associated Artery/Lesion type: [place] artery [place] vs. transplanted heart: [place] heart Associated angina: without angina Qualified Code(s): I25.10 - Atherosclerotic heart disease of [place] coronary artery without angina pectoris; I25.10 - Atherosclerotic heart disease of [place] coronary artery without angina pectoris; I25.10 - Atherosclerotic heart disease of [place] coronary artery without angina pectoris (9) COPD (chronic obstructive pulmonary disease) Code(s): J44.9 - CHRONIC OBSTRUCTIVE PULMONARY DISEASE, UNSPECIFIED Qualifiers : COPD type: COPD with acute exacerbation Qualified Code(s): J44.1 - Chronic obstructive pulmonary disease with (acute) exacerbation; J44.1 - Chronic obstructive pulmonary disease with (acute) exacerbation; J44.1 - Chronic obstructive pulmonary disease with (acute) exacerbation; J44.1 - Chronic obstructive pulmonary disease with (acute) exacerbation (10) Septic shock Code(s): A41.9 - SEPSIS, UNSPECIFIED ORGANISM R65.21 - SEVERE SEPSIS WITH SEPTIC SHOCK Assessment/Plan A/P Septic shock COPD exacerbation Elevated troponins NSTEMI Acute on chronic renal failure Dementia Hyperkalemia -- -- NPO -- off pressors urine out put- improved iv fluids troponins trending down-- elevated likely due to sepsis broad spectrum antibiotics cultures negative family not willing for dialysis Nebs on iv solumedrol DVT prophylaxis--- Heparin sc
[2017-06-10] MEDS: DOPAMINE 400 MG/D5W - 250 ML IVPB SCH (09:10)
[2017-06-10] MEDS ORDERED: PT OWN MED DRAWER 7, Y5N ONE ×2 (09:12→09:51)
[2017-06-10] MEDS ORDERED: CEFEPIME 0.5 GM in DEXTROSE 5%-WATER - 100 ML IVPB SCH (10:00)
[2017-06-10] MEDS ORDERED: morphine CARPU-JECT 2 MG/1 ML DISP.SYRIN IVPUSH PRN ×2 (10:00→10:02)
[2017-06-10] MEDS ORDERED: CEFEPIME HCL 2 GM VIAL (RESTRICTED TO ID) IVPB SCH (11:00)
--- NOTE | 2017-06-10 12:12 | PN ---
Teaching Attending Note Name of Resident: Rolly Fernández ATTENDING PHYSICIAN STATEMENT I saw and evaluated the patient. I reviewed the resident's note and discussed the case with the resident. I agree with the resident's findings and plan as documented. SUBJECTIVE: Patient seen and examined in the ICU. Awake and alert on NIPPV. No acute events overnight. Currently off pressors. Intake & Output 06/07/17 06/08/17 06/09/17 06/10/17 23:59 23:59 23:59 23:59 Intake Total 550 1207 313 Output Total 95 485 250 Balance 455 722 63 Weight 173 lb 15.115 oz 171 lb 170 lb 7 oz Last Vital Signs Temp Pulse Resp BP Pulse Ox 98.2 F 70 20 120/80 100 06/10/17 06:00 06/10/17 10:50 06/10/17 08:10 06/10/17 09:10 06/10/17 10:50 Active Medications Albuterol Sulfate (Ventolin 0.083% Nebulizer Soln -) 1 amp NEB Q6H PRN PRN Reason: SHORT OF BREATH/WHEEZING Albuterol/Ipratropium (Duoneb -) 1 amp NEB Q4H DES Last Admin: 06/10/17 10:10 Dose: 1 amp Heparin Sodium (Porcine) (Heparin -) 5,000 unit SQ TID DES Last Admin: 06/10/17 06:26 Dose: 5,000 unit Dopamine HCl/Dextrose (Dopamine 400 Mg/D5w -) 250 mls @ 14.543 mls/hr IVPB TITR DES; 5 MCG/KG/MIN PRN Reason: Protocol Last Admin: 06/10/17 09:10 Dose: Not Given Sodium Chloride (1/2 Normal Saline) 1,000 mls @ 60 mls/hr IV ASDIR DES Last Admin: 06/09/17 11:00 Dose: 60 mls/hr Cefepime HCl 0.5 gm/ Dextrose 100 mls @ 200 mls/hr IVPB DAILY DES Norepinephrine Bitartrate 8, (000 mcg/ Dextrose) 500 mls @ 8.72 mls/hr IV ASDIR DES; 0.03 MCG/KG/MIN PRN Reason: Protocol Last Titration: 06/09/17 22:00 Dose: 0.02 mcg/kg/min Insulin Aspart (Novolog Vial Sliding Scale -) 1 vial SQ ACHS DES PRN Reason: Protocol Last Admin: 06/10/17 06:30 Dose: Not Given Methylprednisolone Sodium Succinate (Solu-Medrol -) 40 mg IVPB Q8H-IV DES Last Admin: 06/10/17 09:43 Dose: 40 mg Morphine Sulfate (Morphine Injection -) 2 mg IVPUSH Q4H PRN PRN Reason: PAIN Constitutional: Yes: Awake and responsive on NIPPV Eyes: Yes: Cataracts, right surgical pupil HENT: Yes: Atraumatic, Normocephalic Neck: Yes: Trachea Midline Cardiovascular: Yes: Regular Rate and Rhythm Respiratory: Yes: On NIPPV, basilar coarse rhonchi Gastrointestinal: Yes: Soft, Abdomen, Obese, (+) BS Renal/: Yes: Ling Present, Oliguria Edema: No Peripheral Pulses WNL: Yes Integumentary: Yes: WNL Neurological: Yes: Awake, non-focal Labs: Laboratory Results - last 24 hr 06/09/17 06/09/17 06/09/17 09:30 14:00 18:15 WBC 15.3 H RBC 4.04 Hgb 10.6 L Hct 32.6 L MCV 80.8 MCH 26.2 MCHC 32.4 RDW 16.6 H Plt Count 562 H MPV 6.4 L Total Counted 100 Neutrophils % No Result Required. Neutrophils % (Manual) 67 D Lymphocytes % No Result Required. Lymphocytes % (Manual) 31 Monocytes % (Manual) 1 L D Basophils % (Manual) 1 Platelet Estimate Slt increased Puncture Site ABG pH ABG pCO2 at Pt Temp ABG pO2 at Pt Temp ABG HCO3 ABG O2 Sat (Measured) ABG O2 Content ABG Base Excess Carrillo Test O2 Delivery Device Oxygen Flow Rate Vent Mode Vent Rate Mechanical Rate PEEP Pressure Support Vent Sodium Potassium Plasma Potassium 4.8 Chloride Carbon Dioxide Anion Gap BUN Creatinine Creat Clearance w eGFR Random Glucose Calcium Phosphorus Magnesium Total Bilirubin AST ALT Alkaline Phosphatase Total Protein Albumin Total T3 64.00 L 06/09/17 06/10/17 06/10/17 21:30 05:20 05:20 WBC 21.2 H D RBC 3.64 L Hgb 9.7 L Hct 29.4 L MCV 80.7 MCH 26.5 MCHC 32.9 RDW 16.2 H Plt Count 629 H MPV 7.1 L D Total Counted Neutrophils % Neutrophils % (Manual) Lymphocytes % Lymphocytes % (Manual) Monocytes % (Manual) Basophils % (Manual) Platelet Estimate Puncture Site Right radial ABG pH 7.28 L ABG pCO2 at Pt Temp 58.4 H D ABG pO2 at Pt Temp 86.4 D ABG HCO3 26.8 H ABG O2 Sat (Measured) 97.2 ABG O2 Content 13.4 L ABG Base Excess 0.0 Carrillo Test Positive O2 Delivery Device Ot Oxygen Flow Rate 40% Vent Mode St Vent Rate 20 Mechanical Rate Bipap PEEP 0.0 Pressure Support Vent 15/7 Sodium 138 Potassium 5.4 H Plasma Potassium Chloride 103 Carbon Dioxide 28 Anion Gap 7 L BUN 94 H Creatinine 4.0 H D Creat Clearance w eGFR 14.45 Random Glucose 138 H D Calcium 9.2 Phosphorus 5.1 H Magnesium 2.7 H Total Bilirubin 0.3 AST 15 ALT 18 Alkaline Phosphatase 114 D Total Protein 6.7 Albumin 3.0 L Total T3 06/10/17 07:15 WBC RBC Hgb Hct MCV MCH MCHC RDW Plt Count MPV Total Counted Neutrophils % Neutrophils % (Manual) Lymphocytes % Lymphocytes % (Manual) Monocytes % (Manual) Basophils % (Manual) Platelet Estimate Puncture Site Left radial ABG pH 7.32 L ABG pCO2 at Pt Temp 53.4 H ABG pO2 at Pt Temp 98.1 ABG HCO3 26.7 H ABG O2 Sat (Measured) 98.1 ABG O2 Content 13.2 L ABG Base Excess 0.7 Carrillo Test Positive O2 Delivery Device Bipap Oxygen Flow Rate 40% Vent Mode S/t Vent Rate 20 Mechanical Rate Bipap PEEP 0.0 Pressure Support Vent 15/7 Sodium Potassium Plasma Potassium Chloride Carbon Dioxide Anion Gap BUN Creatinine Creat Clearance w eGFR Random Glucose Calcium Phosphorus Magnesium Total Bilirubin AST ALT Alkaline Phosphatase Total Protein Albumin Total T3 Problem List - Problems (1) Acute on chronic renal failure Code(s): N17.9 - ACUTE KIDNEY FAILURE, UNSPECIFIED N18.9 - CHRONIC KIDNEY DISEASE, UNSPECIFIED (2) Acute respiratory failure with hypoxia and hypercarbia Code(s): J96.01 - ACUTE RESPIRATORY FAILURE WITH HYPOXIA J96.02 - ACUTE RESPIRATORY FAILURE WITH HYPERCAPNIA (3) Altered mental status Code(s): R41.82 - ALTERED MENTAL STATUS, UNSPECIFIED (4) Acute CHF (congestive heart failure) Code(s): I50.9 - HEART FAILURE, UNSPECIFIED Qualifiers: Congestive heart failure type: unspecified congestive heart failure type Qualified Code(s): I50.9 - Heart failure, unspecified; I50.9 - Heart failure , unspecified; I50.9 - Heart failure, unspecified; I50.9 - Heart failure, unspecified (5) Acute renal failure Code(s): N17.9 - ACUTE KIDNEY FAILURE, UNSPECIFIED (6) Anemia Code(s): D64.9 - ANEMIA, UNSPECIFIED (7) CAD (coronary artery disease) Code(s): I25.10 - ATHSCL HEART DISEASE OF [place] CORONARY ARTERY W/O ANG PCTRS Qualifiers: Coronary Disease-Associated Artery/Lesion type: [place] artery [place] vs. transplanted heart: [place] heart Associated angina: without angina Qualified Code(s): I25.10 - Atherosclerotic heart disease of [place] coronary artery without angina pectoris; I25.10 - Atherosclerotic heart disease of [place] coronary artery without angina pectoris; I25.10 - Atherosclerotic heart disease of [place] coronary artery without angina pectoris (8) CHF (congestive heart failure) Code(s): I50.9 - HEART FAILURE, UNSPECIFIED Assessment/Plan Acute Hypercapneic Respiratory Failure COPD HTN (?) PNA Acute on Chronic Renal Failure UTI Sepsis Possible component of Cardiogenic Shock PPM CAD Trial of VM O2 NIPPV support as needed Aspiration precautions ABX per ID Strict I&O Follow cultures Medical management of Hyperkalemia : family has deferred HD Hold all sedatives VTE prophylaxis DNR/DNI Cardiac Telemetry monitoring Dr Canales Critical care time spent in reviewing chart, evaluating patient and formulating plan - 35 minutes.
[2017-06-10] MEDS: SODIUM CHLORIDE 0.45% 1,000 ML IV SCH ×2 (12:14→17:07)
[2017-06-10] MEDS ORDERED: HEMOQUE TEST 1 EACH EACH ONE (12:30)
--- NOTE | 2017-06-10 13:09 | PN ---
Physical Exam: SUBJECTIVE: 81 yo M h/o HTN, HLD, CHF, CAD, NIDDMII, CKD, and PVD who arrives from [facility] with AMS, worsening SOB following 4 day course of antibiotics for bronchitis in hypoxic respiratory failure requiring BIPAP. Overnight patient with no acute events. He is awake on BIPAP and able to speak and nod to questions. Pt. HS and AF. MAP consistently above 60 this AM since being off pressor support ( Dopamine and Levophed) yesterday evening. He is NAD , and denies chest pain, abdominal pain, N/V, fevers/chills, SOB. CXR this AM with no infiltrate or signs of fluid overload. OBJECTIVE: Vital Signs Period Temp Pulse Resp BP Sys/Valenzuela Pulse Ox Last 24 Hr 98 F-98.3 F 61-82 20-22 82-154/42-80 96-100 GENERAL: The patient is awake, alert, and, in no acute distress. HEAD: Normal with no signs of trauma. EYES: PERRL, extraocular movements intact, sclera anicteric, conjunctiva clear. No ptosis. . NECK: Trachea midline, full range of motion, supple. LUNGS: + CTA BL . No accessory muscle usage. HEART: Regular rate and rhythm, S1, S2 without murmur, rub or gallop. ABDOMEN: Soft, nontender, nondistended, normoactive bowel sounds, no guarding, no rebound, no hepatosplenomegaly, no masses. EXTREMITIES: 2+ pulses, warm, well-perfused, no edema. PSYCH: Normal mood, normal affect. SKIN: Warm, dry, normal turgor, no rashes or lesions noted Laboratory Results - last 24 hr 06/09/17 06/09/17 06/09/17 09:30 14:00 18:15 WBC 15.3 H RBC 4.04 Hgb 10.6 L Hct 32.6 L MCV 80.8 MCH 26.2 MCHC 32.4 RDW 16.6 H Plt Count 562 H MPV 6.4 L Total Counted 100 Neutrophils % No Result Required. Neutrophils % (Manual) 67 D Lymphocytes % No Result Required. Lymphocytes % (Manual) 31 Monocytes % (Manual) 1 L D Basophils % (Manual) 1 Platelet Estimate Slt increased Puncture Site ABG pH ABG pCO2 at Pt Temp ABG pO2 at Pt Temp ABG HCO3 ABG O2 Sat (Measured) ABG O2 Content ABG Base Excess Carrillo Test O2 Delivery Device Oxygen Flow Rate Vent Mode Vent Rate Mechanical Rate PEEP Pressure Support Vent Sodium Potassium Plasma Potassium 4.8 Chloride Carbon Dioxide Anion Gap BUN Creatinine Creat Clearance w eGFR Random Glucose Calcium Phosphorus Magnesium Total Bilirubin AST ALT Alkaline Phosphatase Total Protein Albumin Total T3 64.00 L 06/09/17 06/10/17 06/10/17 21:30 05:20 05:20 WBC 21.2 H D RBC 3.64 L Hgb 9.7 L Hct 29.4 L MCV 80.7 MCH 26.5 MCHC 32.9 RDW 16.2 H Plt Count 629 H MPV 7.1 L D Total Counted Neutrophils % Neutrophils % (Manual) Lymphocytes % Lymphocytes % (Manual) Monocytes % (Manual) Basophils % (Manual) Platelet Estimate Puncture Site Right radial ABG pH 7.28 L ABG pCO2 at Pt Temp 58.4 H D ABG pO2 at Pt Temp 86.4 D ABG HCO3 26.8 H ABG O2 Sat (Measured) 97.2 ABG O2 Content 13.4 L ABG Base Excess 0.0 Carrillo Test Positive O2 Delivery Device Ot Oxygen Flow Rate 40% Vent Mode St Vent Rate 20 Mechanical Rate Bipap PEEP 0.0 Pressure Support Vent 15/7 Sodium 138 Potassium 5.4 H Plasma Potassium Chloride 103 Carbon Dioxide 28 Anion Gap 7 L BUN 94 H Creatinine 4.0 H D Creat Clearance w eGFR 14.45 Random Glucose 138 H D Calcium 9.2 Phosphorus 5.1 H Magnesium 2.7 H Total Bilirubin 0.3 AST 15 ALT 18 Alkaline Phosphatase 114 D Total Protein 6.7 Albumin 3.0 L Total T3 06/10/17 07:15 WBC RBC Hgb Hct MCV MCH MCHC RDW Plt Count MPV Total Counted Neutrophils % Neutrophils % (Manual) Lymphocytes % Lymphocytes % (Manual) Monocytes % (Manual) Basophils % (Manual) Platelet Estimate Puncture Site Left radial ABG pH 7.32 L ABG pCO2 at Pt Temp 53.4 H ABG pO2 at Pt Temp 98.1 ABG HCO3 26.7 H ABG O2 Sat (Measured) 98.1 ABG O2 Content 13.2 L ABG Base Excess 0.7 Carrillo Test Positive O2 Delivery Device Bipap Oxygen Flow Rate 40% Vent Mode S/t Vent Rate 20 Mechanical Rate Bipap PEEP 0.0 Pressure Support Vent 15/ Sodium Potassium Plasma Potassium Chloride Carbon Dioxide Anion Gap BUN Creatinine Creat Clearance w eGFR Random Glucose Calcium Phosphorus Magnesium Total Bilirubin AST ALT Alkaline Phosphatase Total Protein Albumin Total T3 Active Medications Generic Name Dose Route Start Last Admin Trade Name Freq PRN Reason Stop Dose Admin Albuterol Sulfate 1 amp 06/08/17 22:21 Ventolin 0.083% Nebulizer Soln - NEB Q6H PRN SHORT OF BREATH/WHEEZING Albuterol/Ipratropium 1 amp 06/09/17 18:00 06/10/17 10:10 Duoneb - NEB 1 amp Q4H DES Administration Heparin Sodium (Porcine) 5,000 unit 06/08/17 22:00 06/10/17 06:26 Heparin - SQ 5,000 unit TID DES Administration Dopamine HCl/Dextrose 250 mls @ 14.543 mls/hr 06/09/17 09:00 06/10/17 09:10 Dopamine 400 Mg/D5w - IVPB Not Given TITR DES Protocol 5 MCG/KG/MIN Sodium Chloride 1,000 mls @ 60 mls/hr 06/09/17 10:45 06/10/17 12:14 1/2 Normal Saline IV 60 mls/hr ASDIR DES Administration Cefepime HCl 0.5 gm/ Dextrose 100 mls @ 200 mls/hr 06/10/17 10:00 06/10/17 12: 15 IVPB 200 mls/hr DAILY DES Administration Norepinephrine Bitartrate 8, 500 mls @ 8.72 mls/hr 06/09/17 15:45 06/09/17 22: 00 000 mcg/ Dextrose IV 0.02 mcg/kg/min ASDIR DES Titration Protocol 0.03 MCG/KG/MIN Insulin Aspart 1 vial 06/08/17 22:00 06/10/17 12:45 Novolog Vial Sliding Scale - SQ 2 units ACHS DES Administration Protocol Methylprednisolone Sodium Succinate 40 mg 06/08/17 18:45 06/10/17 09:43 Solu-Medrol - IVPB 40 mg Q8H-IV DES Administration Morphine Sulfate 2 mg 06/10/17 10:02 06/10/17 12:22 Morphine Injection - IVPUSH 2 mg Q4H PRN Administration PAIN ASSESSMENT/PLAN: 81 yo M h/o HTN, HLD, CHF, CAD, NIDDMII, CKD, and PVD who arrives from [facility] with AMS, worsening SOB following 4 day course of antibiotics for bronchitis in hypoxic respiratory failure requiring BIPAP. Pulmonology: Acute on Chronic Hypercapneic Respiratory failure -2/2 Viral COPD exacerbation Vs. CHF exacerbation -BIPAP to assist his work of breathing -DuoNeb Q4H and PRN Q6H, Solumedrol 40mg IV Q8H -Vancomycin trough ordered following Vanc in ED. -Pending urine antigens for pneumonia -02 to maintain >90% -Aspiration precautions Plan: - D/c Zosyn 2.25mg Q8H Azithromycin. - Per ID recs start empiric therapy with Cefepime for pseudomonal coverage and lung coverage adjusted for Cr Cl. -Cont Duo-Nebs -Cont steroids - D/c BiPAP - Place on Venturi mask 50% 02 Infectious Disease Sepsis 2/2 to COPD exacerbation Vs. Pneumonia -Tachypneic with Leukocytosis -Vancomycin given in ED wit Azithromycin and Rocephin given in intermediate D/c Zosyn 2.25mg and Azithromycin.(06/09) Plan: - Per ID recs Cefepime for pseudomonal coverage and lung coverage adjusted for Cr Cl. Consider PO antibiotic switch. Neurology: Altered Mental Status -2/2 to acute resp failure and hypoxia. Plan: - Klonopin and Lexapro for depression/Anxiety once breathing improves - Continue mental status checks Cardiology CHF exacerbation: systolic vs. diastolic HF -Home Lasix recently increased to BID by home theater expert. Will resume once nephro and cardiology input -Hold Beta golden due to borderline BP - MAP consistently over ( 65) Elevated Troponin: elevated trop with nml CK d/t acute on chronic renal failure and infxn ( UTI vs PNA). -Trop 0.66.--> 0.73 (06/09) -EKG revealed T-wave inversions with possible ST elevation in aVR. Plan: - f/u cultures - ASA 81mg daily - Continue telemetry. - Per cardiology recs, if patient tachy can use Metoprolol 5mg IV q4H PRN if BP allows. HTN - D/c Dopamine and Noreponephrine 8000 mcg gtt (06/09) Plan: - W/hold anti-HTN meds due to borderline BP - W/hold Lisinopril d/t SIOBHAN - Central line placed ( 06/09) HLD -Controlled with no home medications -Lipid panel pending Nephrology SIOBHAN on CKD -Likely secondary to hypovolemia from poor oral intake vs. medication induced. Lasix recently increased from once daily to BID -Creatinine 4.8 --> 5.1 ( 06/09) Plan: -Holding all nephrotoxic medications and renally dose medications -Urine lytes ordered -Kidney U/S with no evidence of hydronephrosis or obstruction. -Nephrology consult placed -Discussed with pt. daughter the desire to be have pt. placed on dialysis vs. medical management. She is in collaboration with family and awaiting decision ( 06/09) . HyperKalemia -Likely 2/2 worsening kidney function and clearance of 11 -Potassium of 6.7--> 5.4 -Calcium gluconate given in ED with Insulin -Will repeat BMP tonight Plan: - Continue to treat with albuterol, insulin with dextrose, and kaexylate per rectum. - Repeat EKG Endocrinology NIDDM Plan: -HgbA1C Pending FEN: 1/2 NS Hyperkalemia: Manage medically. NPO PPx Heparin 5000 U Q8H for DVT Protonix 20mg QD Disposition -DNR/DNI Per family and Gerri MOFFETT. -Transfer to Med/Surg Visit type - Emergency Visit Emergency Visit: Yes ED Registration Date: 06/08/17 Care time: The patient presented to the Emergency Department on the above date and was hospitalized for further evaluation of their emergent condition. - New Patient This patient is new to me today: No - Critical Care Critical Care patient: Yes Total Critical Care Time (in minutes): 35 Critical Care Statement: The care of this patient involved high complexity decision making to prevent further life threatening deterioration of the patient 's condition and/or to evaluate & treat vital organ system(s) failure or risk of failure.
[2017-06-10] MEDS ORDERED: SODIUM POLYSTYRENE SULFONATE 15 GM/60 ML BOTTLE PO ONE (13:14)
--- NOTE | 2017-06-10 14:47 | PN ---
Progress Note, Physician History of Present Illness: Pt seen and examined at bedside. He is more awake and interactive today. He remains on bipap. - Current Medication List Current Medications: Active Medications Albuterol Sulfate (Ventolin 0.083% Nebulizer Soln -) 1 amp NEB Q6H PRN PRN Reason: SHORT OF BREATH/WHEEZING Albuterol/Ipratropium (Duoneb -) 1 amp NEB Q4H DES Last Admin: 06/10/17 14:05 Dose: 1 amp Heparin Sodium (Porcine) (Heparin -) 5,000 unit SQ TID DES Last Admin: 06/10/17 14:41 Dose: 5,000 unit Dopamine HCl/Dextrose (Dopamine 400 Mg/D5w -) 250 mls @ 14.543 mls/hr IVPB TITR DES; 5 MCG/KG/MIN PRN Reason: Protocol Last Admin: 06/10/17 09:10 Dose: Not Given Sodium Chloride (1/2 Normal Saline) 1,000 mls @ 60 mls/hr IV ASDIR DES Last Admin: 06/10/17 12:14 Dose: 60 mls/hr Cefepime HCl 0.5 gm/ Dextrose 100 mls @ 200 mls/hr IVPB DAILY DES Last Admin: 06/10/17 12:15 Dose: 200 mls/hr Norepinephrine Bitartrate 8, (000 mcg/ Dextrose) 500 mls @ 8.72 mls/hr IV ASDIR DES; 0.03 MCG/KG/MIN PRN Reason: Protocol Last Titration: 06/09/17 22:00 Dose: 0.02 mcg/kg/min Insulin Aspart (Novolog Vial Sliding Scale -) 1 vial SQ ACHS DES PRN Reason: Protocol Last Admin: 06/10/17 12:45 Dose: 2 units Methylprednisolone Sodium Succinate (Solu-Medrol -) 40 mg IVPB Q8H-IV DES Last Admin: 06/10/17 09:43 Dose: 40 mg Morphine Sulfate (Morphine Injection -) 2 mg IVPUSH Q4H PRN PRN Reason: PAIN Last Admin: 06/10/17 12:22 Dose: 2 mg - Objective Vital Signs: Vital Signs Temperature 98.2 F 06/10/17 06:00 Pulse Rate 70 06/10/17 10:50 Respiratory Rate 20 06/10/17 08:10 Blood Pressure 120/80 06/10/17 09:10 O2 Sat by Pulse Oximetry (%) 100 06/10/17 10:50 Constitutional: Yes: Calm Eyes: Yes: Conjunctiva Clear HENT: Yes: Atraumatic Cardiovascular: Yes: S1, S2 Respiratory: Yes: On BiPap Gastrointestinal: Yes: Soft Genitourinary: Yes: Ling Present Musculoskeletal: Yes: WNL Edema: No Neurological: Yes: Oriented Labs: CBC, BMP 06/10/17 05:20 06/10/17 05:20 INR, PTT INR 1.27 (0.82-1.09) H 06/08/17 15:35 - ....Imaging Chest X-ray: Report Reviewed Problem List - Problems (1) Acute on chronic renal failure Code(s): N17.9 - ACUTE KIDNEY FAILURE, UNSPECIFIED N18.9 - CHRONIC KIDNEY DISEASE, UNSPECIFIED (2) Acute respiratory failure with hypoxia and hypercarbia Code(s): J96.01 - ACUTE RESPIRATORY FAILURE WITH HYPOXIA J96.02 - ACUTE RESPIRATORY FAILURE WITH HYPERCAPNIA (3) Septic shock Code(s): A41.9 - SEPSIS, UNSPECIFIED ORGANISM R65.21 - SEVERE SEPSIS WITH SEPTIC SHOCK (4) CHF (congestive heart failure) Code(s): I50.9 - HEART FAILURE, UNSPECIFIED (5) COPD (chronic obstructive pulmonary disease) Code(s): J44.9 - CHRONIC OBSTRUCTIVE PULMONARY DISEASE, UNSPECIFIED Qualifiers : COPD type: COPD with acute exacerbation Qualified Code(s): J44.1 - Chronic obstructive pulmonary disease with (acute) exacerbation; J44.1 - Chronic obstructive pulmonary disease with (acute) exacerbation; J44.1 - Chronic obstructive pulmonary disease with (acute) exacerbation; J44.1 - Chronic obstructive pulmonary disease with (acute) exacerbation (6) Hyperkalemia Code(s): E87.5 - HYPERKALEMIA Assessment/Plan Current Medications Generic Name Dose Route Start Last Admin Trade Name Freq PRN Reason Stop Dose Admin Albuterol Sulfate 1 amp 06/08/17 22:21 Ventolin 0.083% Nebulizer Soln - NEB Q6H PRN SHORT OF BREATH/WHEEZING Albuterol/Ipratropium 1 amp 06/09/17 18:00 06/10/17 14:05 Duoneb - NEB 1 amp Q4H DES Administration Heparin Sodium (Porcine) 5,000 unit 06/08/17 22:00 06/10/17 14:41 Heparin - SQ 5,000 unit TID DES Administration Dopamine HCl/Dextrose 250 mls @ 14.543 mls/hr 06/09/17 09:00 06/10/17 09:10 Dopamine 400 Mg/D5w - IVPB Not Given TITR DES Protocol 5 MCG/KG/MIN Sodium Chloride 1,000 mls @ 60 mls/hr 06/09/17 10:45 06/10/17 12:14 1/2 Normal Saline IV 60 mls/hr ASDIR DES Administration Cefepime HCl 0.5 gm/ Dextrose 100 mls @ 200 mls/hr 06/10/17 10:00 06/10/17 12: 15 IVPB 200 mls/hr DAILY DES Administration Norepinephrine Bitartrate 8, 500 mls @ 8.72 mls/hr 06/09/17 15:45 06/09/17 22: 00 000 mcg/ Dextrose IV 0.02 mcg/kg/min ASDIR DES Titration Protocol 0.03 MCG/KG/MIN Insulin Aspart 1 vial 06/08/17 22:00 06/10/17 12:45 Novolog Vial Sliding Scale - SQ 2 units ACHS DES Administration Protocol Methylprednisolone Sodium Succinate 40 mg 06/08/17 18:45 06/10/17 09:43 Solu-Medrol - IVPB 40 mg Q8H-IV DES Administration Morphine Sulfate 2 mg 06/10/17 10:02 06/10/17 12:22 Morphine Injection - IVPUSH 2 mg Q4H PRN Administration PAIN Impression 1. SIOBHAN 2. hx of CKD 3. hyperkalemia 4. anemia 5. hx GI bleed 6. dementia 7. CLL 8. CHF 9. HTN 10. thrombocytosis Plan - potassium is improving - renal function is improving - cont fluids - cont abx - monitor bp and titrate pressors - cont bipap - daily cxr - discussed with ICU team - monitor urine output - keep jaison on hold - renal diet once diet is started Dr Armas
[2017-06-10] MEDS ORDERED: DOPAMINE 400 MG/D5W - 250 ML IVPB SCH (16:51)
[2017-06-10] MEDS ORDERED: NOREPINEPHRINE BITARTRATE 8,000 MCG in DEXTROSE 5%-WATER - 492 ML IV SCH (16:51)
[2017-06-10] MEDS ORDERED: ALBUTEROL SO4 0.083% IH SOL 2.5 MG/3 ML VIAL.NEB. NEB PRN (16:51)
[2017-06-10] MEDS: NOREPINEPHRINE BITARTRATE 8,000 MCG in DEXTROSE 5%-WATER - 492 ML IV SCH (17:09)
[2017-06-10] MEDS: morphine CARPU-JECT 2 MG/1 ML DISP.SYRIN IVPUSH PRN (19:02)
[2017-06-10] MEDS ORDERED: INSULIN (NOVOLOG) ASPART 100 UNITS/ML 10ML VIAL ONE (21:20)
[2017-06-11] MEDS: methylPREDNISolone NA SUCC 40 MG/1 ML VIAL IVPB SCH ×3 (02:30→21:41)
[2017-06-11] MEDS ORDERED: PT OWN MED DRAWER 7, Y5N ONE ×3 (02:43→14:41)
[2017-06-11] MEDS: ALBUTEROL SO4 2.5/IPRATROPIUM 0.5 INH SOL 3 ML VIAL.NEB. NEB SCH ×6 (03:46→22:15)
[2017-06-11] MEDS: morphine CARPU-JECT 2 MG/1 ML DISP.SYRIN IVPUSH PRN ×3 (05:28→18:57)
[2017-06-11] MEDS: HEPARIN NA (PORCINE) 5,000 UNITS/ML 1ML VIAL SQ SCH ×3 (05:29→21:41)
[2017-06-11] MEDS: INSULIN SLIDING SCALE (NOVOLOG) 1 VIAL SQ SCH ×4 (06:07→21:55)
[2017-06-11 07:55] LABS: ARTERIAL BLD GAS O2 SATURATION 99.4 % (90-98.9); ARTERIAL BLOOD GAS BASE EXCESS 1.5 meq/l (-2-2); ARTERIAL BLOOD GAS HCO3 26.9 meq/L (22-26); ARTERIAL BLOOD GAS pH 7.36 (7.35-7.45)
[2017-06-11 07:58] LABS: ALLENS TEST POSITIVE; ART PUNCT SITE LEFT RADIAL
[2017-06-11 07:59] LABS: LPM/O2% 40%; PT. ON O2? YES; TYPE OF O2 BIPAP; VENT RATE 20; VT/PRESS 15/7
[2017-06-11] MEDS: PIPERACILLIN/TAZOB 2.25 GM 2.25 GM in DEXTROSE 5%-WATER - 50 ML IVPB SCH (08:05)
--- NOTE | 2017-06-11 08:17 | PN ---
Progress Note, Physician History of Present Illness: seen and examined this am. states he had some chest discomfort overnight and sob this am, currently on bipap feeling better. - Current Medication List Current Medications: Active Medications Albuterol Sulfate (Ventolin 0.083% Nebulizer Soln -) 1 amp NEB Q6H PRN PRN Reason: SHORT OF BREATH/WHEEZING Albuterol/Ipratropium (Duoneb -) 1 amp NEB Q4HPO DES Last Admin: 06/11/17 07:02 Dose: 1 amp Heparin Sodium (Porcine) (Heparin -) 5,000 unit SQ TID DES Last Admin: 06/11/17 05:29 Dose: 5,000 unit Cefepime HCl 0.5 gm/ Dextrose 100 mls @ 200 mls/hr IVPB DAILY DES Sodium Chloride (1/2 Normal Saline) 1,000 mls @ 60 mls/hr IV ASDIR [facility] Last Admin: 06/10/17 17:07 Dose: Not Given Insulin Aspart (Novolog Vial Sliding Scale -) 1 vial SQ ACHS DES PRN Reason: Protocol Last Admin: 06/11/17 06:07 Dose: 2 units Methylprednisolone Sodium Succinate (Solu-Medrol -) 40 mg IVPB Q8H-IV DES Last Admin: 06/11/17 02:30 Dose: 40 mg Morphine Sulfate (Morphine Injection -) 2 mg IVPUSH Q4H PRN PRN Reason: PAIN Last Admin: 06/11/17 05:28 Dose: 2 mg - Objective Vital Signs: Vital Signs Temperature 97.6 F 06/11/17 06:12 Pulse Rate 66 06/11/17 06:12 Respiratory Rate 20 06/11/17 06:12 Blood Pressure 157/77 06/11/17 06:12 O2 Sat by Pulse Oximetry (%) 99 06/10/17 21:00 Constitutional: Yes: No Distress, Calm Eyes: Yes: Conjunctiva Clear, EOM Intact, PERRL HENT: Yes: Atraumatic, Normocephalic Neck: Yes: Supple, Trachea Midline Cardiovascular: Yes: Regular Rate and Rhythm, S1, S2. No: Bradycardia, Tachycardia, Pulse Irregular, Bruit, JVD, Gallop, Murmur, Rub, S3, S4, Varicosities Respiratory: Yes: Regular, Diminished, On BiPap. No: Rales, Rhonchi, SOB, Wheezes Gastrointestinal: Yes: Normal Bowel Sounds, Soft. No: Distention, Tenderness Extremities: Yes: WNL Edema: No Peripheral Pulses WNL: Yes Peripheral Pulses: Left Doralis Pedis: 2+, Right Dorsalis Pedis: 2+ Neurological: Yes: Alert, Oriented Psychiatric: Yes: Alert, Oriented Labs: INR, PTT INR 1.27 (0.82-1.09) H 06/08/17 15:35 - ....Imaging Chest X-ray: Report Reviewed, Image Reviewed EKG: Report Reviewed, Image Reviewed Other: Report Reviewed, Image Reviewed Assessment/Plan IMP: Acute on chronic renal failure with hyperkalemia Sepsis secondary to UTI Chronic COPD DM PAD History of CAD Mildly elevated TnI with normal CK-likely secondary to CKD and UTI, less likely ACS -cardiac enzymes did not sig trend up -echo showed normal LV systolic function -chest discomfort overnight, repeat ekg today -will consider pharm stress test once overal clinically improves depending on overall goals of care -resume ASA 81mg daily if no contraindication SOB-COPD -overall euvolemic -Cxr yesterday showed no sig change, no sign of CHF -cont bipap as needed and supp O2 -receiving nebs, steroids, abx
[2017-06-11 08:22] LABS: MCH 26.1 pg (25.7-33.7); MCHC 32.2 g/dl (32.0-35.9); MEAN PLT VOLUME 7.1 fl (7.5-11.1); PLATELET COUNT 533 K/MM3 (134-434); RDW 15.8 % (11.9-15.9); WHITE BLOOD COUNT 19.5 K/mm3 (4.0-10.0)
[2017-06-11 08:43] LABS: ANION GAP 10 (8-16); CALCIUM 8.9 mg/dL (8.5-10.1); CO2 26 mmol/L (21-32); GLUCOSE,RANDOM 158 mg/dL (74-106); MAGNESIUM 2.7 mg/dL (1.8-2.4); PHOSPHOROUS 4.1 mg/dL (2.5-4.9); SGOT/AST 11 U/L (15-37); SGPT/ALT 17 U/L (12-78)
[2017-06-11 08:45] LABS: ALK PHOS 107 U/L (45-117); BILIRUBIN,TOTAL 0.4 mg/dL (0.2-1.0); CREATININE 2.7 mg/dL (0.7-1.3); TOT PROT 6.5 g/dl (6.4-8.2)
--- NOTE | 2017-06-11 09:41 | CONSULT ---
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 DEMENTIA) Cardiovascular: Yes: CAD, CHF, HTN Pulmonary: Yes: COPD Gastrointestinal: Yes: GERD Renal/: Yes: Renal Inusuff, BPH Heme/Onc: Yes: Other (CLL) Psych: Yes: Anxiety - Past Surgical History Past Surgical History: Yes: Permanent Pacemaker - Advance Directives Advance Directives: Yes: Health Care Proxy, DNR - Smoking History Smoking history: Unknown if ever smoked Have you smoked in the past 12 months: No Aproximately how many cigarettes per day: 0 - Alcohol/Substance Use Hx Alcohol Use: No - Social History ADL: Support Services History of Recent Travel: No History - Admission Reason For Visit: ACUTE ON CHRONIC RENAL FAILURE;RESP FAIL W/HYPOXIA - Hearing Hearing: Normal With Patient: No Speech Evaluation - Communication Primary Language: PORTUGUESE Communication: Yes: Within Normal Limits (WFL), Simple Responses (WFL) Oral Expression Ability: Yes: Mild Impairment - Speech Production Able to Make Needs Known: Yes: WNL Intelligibility: Yes: WNL - Speech Characteristics Voice Loudness: Normal Voice Pitch: Yes: Normal Voice Phonatory-based Quality: Yes: Hoarse, Glottal Parekh, Harsh Speech Pattern: Normal Nasal Resonance: Normal Articulation: Yes: Precise Dysfluency: Yes: Tonic Rate of Speech: Intact - Language/Auditory Comprehension Follows: Yes: 1 Stage Simple Commands (WFL), 2 Stage Simple Commands (WFL) Observation: Able to respond to yes/no queries: Yes, Yes/No Confusion: No, Comprehends Conversational Speech: Yes, Benefits from Slow Speech: No, Benefits from Repetiton: No, Benefits from Increased Volume of Speech: No - Language/Verbal Expression Able to Respond to Simple Queries: Yes: WNL Able to Communicate Wants and Needs: Yes: WNL Functional Communication Status: Yes: WNL Aware of Errors: Yes Attempts to Correct Errors: Yes Use of Gestures: No Attention: Yes: Intact - 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 Jaw Position: Open at Rest Against Resistance Opening: Normal Against Resistance Closing: Normal Pucker Lips: Normal Smile: Normal Lips, Comment: WFL for speech and swallowing purposes. Lingual Movement: Normal Lingual Speed of Movement: Normal Lingual Movement Strgth Against Opposition: Normal Lingual Movement Characteristics: Normal Lingual Comment: WFL for speech and swallowing purposes. Soft Palate Description: Normal Color Hard Palate Description: Normal Color Gag Reflex: Strong Bite Reflex: Present Velopharyngeal Movement: Normal Laryngeal Elevation: WFL Needs Assistance: Yes Rate of Intake: WFL Bolus Size: WFL Labial Seal: WFL Chewing: WFL Oral Prep Time: WFL A-P Transit: WFL Timing of Swallow: WFL Coughing/Throat Clear: No Change in Voice: No Other Findings/Remarks: 81 yo male seen at bedside for swallow eval to r/o dysphagia. Pt is verbal, A& Ox2 agitated. PMHX includes SIOBHAN CKD Hyperkalemia, anemia, dementia, CHF, HTN. Pt is currently consuming renal diet, dysphagia pureed with nectar-thicken liquids. Vocal quality is reduced with hoarsen characteristics and adequate airway protection. Currently on BIPAP for respiratory needs. Pt given po trials of puree only with assistance revealed good acceptance, adequate control formation and transport, pharyngeal swallows are mildly delayed with no coughing or changes in voicing. Pt given po trial of nectar fluids via cup revealed good acceptance, adequate control formation and transport, pharyngeal swallows are mildly delayed with no coughing or changes in voicing. Recommendations - Speech Evaluation, Impression/Plan Impression: 81 yo male presents with adequate speech and communication skills for his environment. Vocal quality is reduced with adequate airway protection. Pt presents with mild garth-phayrngeal phase dysphagia Pt is able to tolerate pureed and thicken liquids without s/s of aspiration at this time. Halfway Goals: tolerate the least restictive diet consistency without s/s of aspiration. Short Term Goals: tolerate dysphagia pureed with nectar thicken liquids without s/s of aspiration - Dysphagia Impressions/Plan Swallowing Skills: Impaired Dysphagia Impressions: Mild Impairment *Silent aspiration: cannot be R/O at bedside Dysphagia Treatment Plan: Small Bites, Safe Rate, 1/2 tsp. at a time, Elevate HOB during feed, Other (monitor nutritional intake and pulmonary status. Renal diet required.) Dysphagia Evaluation Summary: Rx: continue current diet of dysphagia pureed with nectar thicken liquids as tolerated. Observe standard aspiration precautions. Crush medication as appropriate. Results given to furnace charger Chris and to pcp via chart. RN ENDOCRINOLOGY to follow up for diet tolerance. - Recommendations Diet Consistency: Dysphagia Pureed Medication Administration: Crushed with applesauce Liquids: [place]
[2017-06-11] MEDS: SODIUM CHLORIDE 0.45% 1,000 ML IV SCH ×2 (09:43→16:51)
[2017-06-11] MEDS: CEFEPIME 0.5 GM in DEXTROSE 5%-WATER - 100 ML IVPB SCH (10:40)
--- NOTE | 2017-06-11 12:12 | PN ---
Progress Note, Physician Chief Complaint: awake , no complaints able to take PO anxious c/o burning in eyes - Current Medication List Current Medications: Active Medications Albuterol Sulfate (Ventolin 0.083% Nebulizer Soln -) 1 amp NEB Q6H PRN PRN Reason: SHORT OF BREATH/WHEEZING Albuterol/Ipratropium (Duoneb -) 1 amp NEB Q4HPO DES Last Admin: 06/11/17 11:44 Dose: 1 amp Heparin Sodium (Porcine) (Heparin -) 5,000 unit SQ TID DES Last Admin: 06/11/17 05:29 Dose: 5,000 unit Cefepime HCl 0.5 gm/ Dextrose 100 mls @ 200 mls/hr IVPB DAILY DES Last Admin: 06/11/17 10:40 Dose: 200 mls/hr Sodium Chloride (1/2 Normal Saline) 1,000 mls @ 60 mls/hr IV ASDIR DES Last Admin: 06/11/17 09:43 Dose: 60 mls/hr Insulin Aspart (Novolog Vial Sliding Scale -) 1 vial SQ ACHS DES PRN Reason: Protocol Last Admin: 06/11/17 06:07 Dose: 2 units Methylprednisolone Sodium Succinate (Solu-Medrol -) 40 mg IVPB Q8H-IV DES Last Admin: 06/11/17 10:40 Dose: 40 mg Morphine Sulfate (Morphine Injection -) 2 mg IVPUSH Q4H PRN PRN Reason: PAIN Last Admin: 06/11/17 09:29 Dose: 2 mg - Objective Vital Signs: Vital Signs Temperature 98.4 F 06/11/17 09:00 Pulse Rate 52 L 06/11/17 11:44 Respiratory Rate 20 06/11/17 09:00 Blood Pressure 149/73 06/11/17 09:00 O2 Sat by Pulse Oximetry (%) 98 06/11/17 11:44 Constitutional: Yes: No Distress, Anxious Eyes: Yes: Conjunctiva Clear Cardiovascular: Yes: Regular Rate and Rhythm Respiratory: Yes: Diminished Gastrointestinal: Yes: Normal Bowel Sounds, Soft, Abdomen, Obese. No: Distention, Tenderness Edema: No Psychiatric: Yes: Alert Labs: CBC, BMP 06/11/17 06:00 06/11/17 06:00 INR, PTT INR 1.27 (0.82-1.09) H 06/08/17 15:35 Problem List - Problems (1) Acute on chronic renal failure Code(s): N17.9 - ACUTE KIDNEY FAILURE, UNSPECIFIED N18.9 - CHRONIC KIDNEY DISEASE, UNSPECIFIED (2) Acute respiratory failure with hypoxia and hypercarbia Code(s): J96.01 - ACUTE RESPIRATORY FAILURE WITH HYPOXIA J96.02 - ACUTE RESPIRATORY FAILURE WITH HYPERCAPNIA (3) Altered mental status Code(s): R41.82 - ALTERED MENTAL STATUS, UNSPECIFIED (4) Chronic lymphocytic leukemia Code(s): C91.10 - CHRONIC LYMPHOCYTIC LEUK OF B-CELL TYPE NOT ACHIEVE REMIS (5) Acute CHF (congestive heart failure) Code(s): I50.9 - HEART FAILURE, UNSPECIFIED Qualifiers: Congestive heart failure type: unspecified congestive heart failure type Qualified Code(s): I50.9 - Heart failure, unspecified; I50.9 - Heart failure , unspecified; I50.9 - Heart failure, unspecified; I50.9 - Heart failure, unspecified (6) Acute renal failure Code(s): N17.9 - ACUTE KIDNEY FAILURE, UNSPECIFIED (7) Anemia Code(s): D64.9 - ANEMIA, UNSPECIFIED (8) CAD (coronary artery disease) Code(s): I25.10 - ATHSCL HEART DISEASE OF [place] CORONARY ARTERY W/O ANG PCTRS Qualifiers: Coronary Disease-Associated Artery/Lesion type: [place] artery [place] vs. transplanted heart: [place] heart Associated angina: without angina Qualified Code(s): I25.10 - Atherosclerotic heart disease of [place] coronary artery without angina pectoris; I25.10 - Atherosclerotic heart disease of [place] coronary artery without angina pectoris; I25.10 - Atherosclerotic heart disease of [place] coronary artery without angina pectoris (9) COPD (chronic obstructive pulmonary disease) Code(s): J44.9 - CHRONIC OBSTRUCTIVE PULMONARY DISEASE, UNSPECIFIED Qualifiers : COPD type: COPD with acute exacerbation Qualified Code(s): J44.1 - Chronic obstructive pulmonary disease with (acute) exacerbation; J44.1 - Chronic obstructive pulmonary disease with (acute) exacerbation; J44.1 - Chronic obstructive pulmonary disease with (acute) exacerbation; J44.1 - Chronic obstructive pulmonary disease with (acute) exacerbation (10) Septic shock Code(s): A41.9 - SEPSIS, UNSPECIFIED ORGANISM R65.21 - SEVERE SEPSIS WITH SEPTIC SHOCK Assessment/Plan A/P Septic shock COPD exacerbation Elevated troponins NSTEMI Acute on chronic renal failure Dementia Hyperkalemia -- -- po as per swallow therapist --taper solumedrol urine out put- improved iv fluids-- renal function better Kayexalate 30gm po x 1 iv antibiotics cultures negative family not willing for dialysis Nebs resume Klonopin , decreased dose of Neurontin for generalized pain DVT prophylaxis--- Heparin sc
--- NOTE | 2017-06-11 12:49 | PN ---
Progress Note, Physician History of Present Illness: PULMONARY AWAKE ,ALERT,ON VM ,LESS DYSPNEIC - Current Medication List Current Medications: Active Medications Albuterol Sulfate (Ventolin 0.083% Nebulizer Soln -) 1 amp NEB Q6H PRN PRN Reason: SHORT OF BREATH/WHEEZING Albuterol/Ipratropium (Duoneb -) 1 amp NEB Q4HPO DES Last Admin: 06/11/17 11:44 Dose: 1 amp Heparin Sodium (Porcine) (Heparin -) 5,000 unit SQ TID DES Last Admin: 06/11/17 05:29 Dose: 5,000 unit Cefepime HCl 0.5 gm/ Dextrose 100 mls @ 200 mls/hr IVPB DAILY DES Last Admin: 06/11/17 10:40 Dose: 200 mls/hr Sodium Chloride (1/2 Normal Saline) 1,000 mls @ 60 mls/hr IV ASDIR DES Last Admin: 06/11/17 09:43 Dose: 60 mls/hr Insulin Aspart (Novolog Vial Sliding Scale -) 1 vial SQ ACHS DES PRN Reason: Protocol Last Admin: 06/11/17 12:32 Dose: 4 units Methylprednisolone Sodium Succinate (Solu-Medrol -) 40 mg IVPB Q8H-IV DES Last Admin: 06/11/17 10:40 Dose: 40 mg Morphine Sulfate (Morphine Injection -) 2 mg IVPUSH Q4H PRN PRN Reason: PAIN Last Admin: 06/11/17 09:29 Dose: 2 mg - Objective Vital Signs: Vital Signs Temperature 98.4 F 06/11/17 09:00 Pulse Rate 52 L 06/11/17 11:44 Respiratory Rate 20 06/11/17 09:00 Blood Pressure 149/73 06/11/17 09:00 O2 Sat by Pulse Oximetry (%) 98 06/11/17 11:44 Constitutional: Yes: Well Nourished, Calm Eyes: Yes: WNL HENT: Yes: WNL Neck: Yes: WNL Cardiovascular: Yes: Regular Rate and Rhythm, S1, S2 Respiratory: Yes: Rhonchi (SCATTERED GENEVIEVE RHONCHI) Gastrointestinal: Yes: Normal Bowel Sounds, Soft Extremities: Yes: WNL Edema: No Labs: CBC, BMP 06/11/17 06:00 06/11/17 06:00 INR, PTT INR 1.27 (0.82-1.09) H 06/08/17 15:35 Assessment/Plan Problem List - Problems (1) Acute on chronic renal failure Code(s): N17.9 - ACUTE KIDNEY FAILURE, UNSPECIFIED N18.9 - CHRONIC KIDNEY DISEASE, UNSPECIFIED (2) Acute respiratory failure with hypoxia and hypercarbia Code(s): J96.01 - ACUTE RESPIRATORY FAILURE WITH HYPOXIA J96.02 - ACUTE RESPIRATORY FAILURE WITH HYPERCAPNIA (3) Altered mental status Code(s): R41.82 - ALTERED MENTAL STATUS, UNSPECIFIED (4) Acute CHF (congestive heart failure) Code(s): I50.9 - HEART FAILURE, UNSPECIFIED Qualifiers: Congestive heart failure type: unspecified congestive heart failure type Qualified Code(s): I50.9 - Heart failure, unspecified; I50.9 - Heart failure , unspecified; I50.9 - Heart failure, unspecified; I50.9 - Heart failure, unspecified (5) Acute renal failure Code(s): N17.9 - ACUTE KIDNEY FAILURE, UNSPECIFIED (6) Anemia Code(s): D64.9 - ANEMIA, UNSPECIFIED (7) CAD (coronary artery disease) Code(s): I25.10 - ATHSCL HEART DISEASE OF [place] CORONARY ARTERY W/O ANG PCTRS Qualifiers: Coronary Disease-Associated Artery/Lesion type: [place] artery [place] vs. transplanted heart: [place] heart Associated angina: without angina Qualified Code(s): I25.10 - Atherosclerotic heart disease of [place] coronary artery without angina pectoris; I25.10 - Atherosclerotic heart disease of [place] coronary artery without angina pectoris; I25.10 - Atherosclerotic heart disease of [place] coronary artery without angina pectoris (8) CHF (congestive heart failure) Code(s): I50.9 - HEART FAILURE, UNSPECIFIED Assessment/Plan Acute Hypercapneic Respiratory Failure COPD HTN (?) PNA Acute on Chronic Renal Failure UTI Sepsis PPM CAD VM O2 NIPPV support as needed Aspiration precautions ABX per ID Strict I&O Hold all sedatives VTE prophylaxis DNR/DNI DR GRECO
[2017-06-11] MEDS ORDERED: traMADol HCL 50 MG TABLET PO PRN (12:54)
[2017-06-11] MEDS ORDERED: SODIUM POLYSTYRENE SULFONATE 15 GM/60 ML BOTTLE PO ONE (12:56)
[2017-06-11] MEDS ORDERED: methylPREDNISolone NA SUCC 40 MG/1 ML VIAL IVPB SCH (13:00)
[2017-06-11] MEDS: PANTOPRAZOLE 40 MG TABLET (FP) PO SCH (14:31)
[2017-06-11] MEDS: ARTIFICIAL TEARS (POLYVINYL ALCOHOL 1.4%) OPTH DROPS OU PRN ×2 (14:32→21:42)
[2017-06-11] MEDS: clonazePAM 0.5 MG TABLET PO PRN (16:57)
--- NOTE | 2017-06-11 18:41 | EKG ---
Test Reason : Blood Pressure : / mmHG Vent. Rate : 095 BPM Atrial Rate : 095 BPM P-R Int : 186 ms QRS Dur : 082 ms QT Int : 334 ms P-R-T Axes : 072 035 101 degrees QTc Int : 419 ms NORMAL SINUS RHYTHM INFERIOR-POSTERIOR INFARCT (CITED ON OR BEFORE 09-JUN-2017) ABNORMAL ECG WHEN COMPARED WITH ECG OF 09-JUN-2017 10:58, ST- T ABNORMALITIES IN ANTERIOR AND INFERIOR LEADS REPEAT EKG IF CLINICALLY INDICATED Confirmed by PAYTON COOPER MD ([id number]) on 06/11/2017 6:41:47 PM Referred By: Claudia MARK Confirmed By:PAYTON COOPER MD
--- NOTE | 2017-06-11 21:04 | PN ---
Progress Note (short form) - Note Progress Note: hyperkalemia ckd Current Medications Albuterol Sulfate (Ventolin 0.083% Nebulizer Soln -) 1 amp NEB Q6H PRN PRN Reason: SHORT OF BREATH/WHEEZING Albuterol/Ipratropium (Duoneb -) 1 amp NEB Q4HPO DES Last Admin: 06/11/17 18:31 Dose: 1 amp Artificial Tears (Artificial Tears) 1 drop OU Q8H PRN PRN Reason: DRY EYES Last Admin: 06/11/17 14:32 Dose: 1 drop Budesonide/Formoterol Fumarate (Symbicort 160/4.5mcg -) 2 puff IH BID [facility] Clonazepam (Klonopin -) 0.25 mg PO BID PRN PRN Reason: ANXIETY Last Admin: 06/11/17 16:57 Dose: 0.25 mg Gabapentin (Neurontin -) 100 mg PO BID [facility] Heparin Sodium (Porcine) (Heparin -) 5,000 unit SQ TID DES Last Admin: 06/11/17 14:31 Dose: 5,000 unit Cefepime HCl 0.5 gm/ Dextrose 100 mls @ 200 mls/hr IVPB DAILY [facility] Last Admin: 06/11/17 10:40 Dose: 200 mls/hr Sodium Chloride (1/2 Normal Saline) 1,000 mls @ 60 mls/hr IV ASDIR [facility] Last Admin: 06/11/17 16:51 Dose: Not Given Insulin Aspart (Novolog Vial Sliding Scale -) 1 vial SQ ACHS DES PRN Reason: Protocol Last Admin: 06/11/17 16:57 Dose: 4 units Methylprednisolone Sodium Succinate (Solu-Medrol -) 40 mg IVPB BID [facility] Morphine Sulfate (Morphine Injection -) 2 mg IVPUSH Q4H PRN PRN Reason: PAIN Last Admin: 06/11/17 18:57 Dose: 2 mg Pantoprazole Sodium (Protonix -) 40 mg PO DAILY [facility] Last Admin: 06/11/17 14:31 Dose: 40 mg Tramadol HCl (Ultram -) 50 mg PO BID PRN PRN Reason: BACK PAIN Last Admin: 06/11/17 15:11 Dose: 50 mg Last Vital Signs Temp Pulse Resp BP Pulse Ox 98 F 90 20 138/58 98 06/11/17 20:25 06/11/17 20:25 06/11/17 20:25 06/11/17 20:25 06/11/17 20:25 lungs clear Heart reg Abd soft nontender Ext no edema CBC, BMP 06/11/17 06:00 06/11/17 06:00 IMP- hyperkalemia SIOBHAN/CKD Plan- kayexalate Hydration
[2017-06-11] MEDS: BUDESONIDE/FORMETEROL FUMARATE 160/4.5 mcg INHALER IH SCH (21:41)
[2017-06-11] MEDS: GABAPENTIN 100 MG CAPSULE (FP) PO SCH (21:41)
[2017-06-11] MEDS ORDERED: GABAPENTIN 100 MG CAPSULE (FP) PO SCH (22:00)
[2017-06-12] MEDS: ALBUTEROL SO4 2.5/IPRATROPIUM 0.5 INH SOL 3 ML VIAL.NEB. NEB SCH ×6 (02:30→22:14)
[2017-06-12] MEDS: HEPARIN NA (PORCINE) 5,000 UNITS/ML 1ML VIAL SQ SCH ×3 (06:07→21:36)
[2017-06-12] MEDS: INSULIN SLIDING SCALE (NOVOLOG) 1 VIAL SQ SCH ×4 (06:08→22:34)
[2017-06-12] MEDS ORDERED: PT OWN MED DRAWER 7, Y5N ONE ×7 (06:40→18:03)
[2017-06-12] MEDS: ARTIFICIAL TEARS (POLYVINYL ALCOHOL 1.4%) OPTH DROPS OU PRN ×2 (06:44→15:09)
[2017-06-12] MEDS: SODIUM CHLORIDE 0.45% 1,000 ML IV SCH ×2 (06:45→17:20)
[2017-06-12] MEDS: morphine CARPU-JECT 2 MG/1 ML DISP.SYRIN IVPUSH PRN ×2 (07:07→19:17)
--- NOTE | 2017-06-12 08:51 | PN ---
Progress Note, Physician Chief Complaint: awake , no complaints anxious - Current Medication List Current Medications: Active Medications Albuterol Sulfate (Ventolin 0.083% Nebulizer Soln -) 1 amp NEB Q6H PRN PRN Reason: SHORT OF BREATH/WHEEZING Albuterol/Ipratropium (Duoneb -) 1 amp NEB Q4HPO [facility] Last Admin: 06/12/17 06:17 Dose: 1 amp Artificial Tears (Artificial Tears) 1 drop OU Q8H PRN PRN Reason: DRY EYES Last Admin: 06/12/17 06:44 Dose: 1 drop Budesonide/Formoterol Fumarate (Symbicort 160/4.5mcg -) 2 puff IH BID [facility] Last Admin: 06/11/17 21:41 Dose: 2 puff Clonazepam (Klonopin -) 0.25 mg PO BID PRN PRN Reason: ANXIETY Last Admin: 06/11/17 16:57 Dose: 0.25 mg Gabapentin (Neurontin -) 100 mg PO BID [facility] Last Admin: 06/11/17 21:41 Dose: 100 mg Heparin Sodium (Porcine) (Heparin -) 5,000 unit SQ TID [facility] Last Admin: 06/12/17 06:07 Dose: 5,000 unit Cefepime HCl 0.5 gm/ Dextrose 100 mls @ 200 mls/hr IVPB DAILY [facility] Last Admin: 06/11/17 10:40 Dose: 200 mls/hr Sodium Chloride (1/2 Normal Saline) 1,000 mls @ 60 mls/hr IV ASDIR [facility] Last Admin: 06/12/17 06:45 Dose: 60 mls/hr Insulin Aspart (Novolog Vial Sliding Scale -) 1 vial SQ ACHS [facility] PRN Reason: Protocol Last Admin: 06/12/17 06:08 Dose: 2 units Methylprednisolone Sodium Succinate (Solu-Medrol -) 40 mg IVPB BID [facility] Last Admin: 06/11/17 21:41 Dose: 40 mg Morphine Sulfate (Morphine Injection -) 2 mg IVPUSH Q4H PRN PRN Reason: PAIN Last Admin: 06/12/17 07:07 Dose: 2 mg Pantoprazole Sodium (Protonix -) 40 mg PO DAILY [facility] Last Admin: 06/11/17 14:31 Dose: 40 mg Tramadol HCl (Ultram -) 50 mg PO BID PRN PRN Reason: BACK PAIN Last Admin: 06/11/17 15:11 Dose: 50 mg - Objective Vital Signs: Vital Signs Temperature 98.0 F 06/12/17 08:44 Pulse Rate 78 06/12/17 08:44 Respiratory Rate 20 06/12/17 08:44 Blood Pressure 145/72 06/12/17 08:44 O2 Sat by Pulse Oximetry (%) 96 06/12/17 00:08 Constitutional: Yes: No Distress Cardiovascular: Yes: Regular Rate and Rhythm Respiratory: Yes: Diminished, Rhonchi Gastrointestinal: Yes: Normal Bowel Sounds, Soft, Abdomen, Obese. No: Distention, Tenderness Edema: No Labs: CBC, BMP 06/11/17 06:00 INR, PTT INR 1.27 (0.82-1.09) H 06/08/17 15:35 Problem List - Problems (1) Acute on chronic renal failure Code(s): N17.9 - ACUTE KIDNEY FAILURE, UNSPECIFIED N18.9 - CHRONIC KIDNEY DISEASE, UNSPECIFIED (2) Acute respiratory failure with hypoxia and hypercarbia Code(s): J96.01 - ACUTE RESPIRATORY FAILURE WITH HYPOXIA J96.02 - ACUTE RESPIRATORY FAILURE WITH HYPERCAPNIA (3) Altered mental status Code(s): R41.82 - ALTERED MENTAL STATUS, UNSPECIFIED (4) Chronic lymphocytic leukemia Code(s): C91.10 - CHRONIC LYMPHOCYTIC LEUK OF B-CELL TYPE NOT ACHIEVE REMIS (5) Acute CHF (congestive heart failure) Code(s): I50.9 - HEART FAILURE, UNSPECIFIED Qualifiers: Congestive heart failure type: unspecified congestive heart failure type Qualified Code(s): I50.9 - Heart failure, unspecified; I50.9 - Heart failure , unspecified; I50.9 - Heart failure, unspecified; I50.9 - Heart failure, unspecified (6) Acute renal failure Code(s): N17.9 - ACUTE KIDNEY FAILURE, UNSPECIFIED (7) Anemia Code(s): D64.9 - ANEMIA, UNSPECIFIED (8) CAD (coronary artery disease) Code(s): I25.10 - ATHSCL HEART DISEASE OF [place] CORONARY ARTERY W/O ANG PCTRS Qualifiers: Coronary Disease-Associated Artery/Lesion type: [place] artery [place] vs. transplanted heart: [place] heart Associated angina: without angina Qualified Code(s): I25.10 - Atherosclerotic heart disease of [place] coronary artery without angina pectoris; I25.10 - Atherosclerotic heart disease of [place] coronary artery without angina pectoris; I25.10 - Atherosclerotic heart disease of [place] coronary artery without angina pectoris (9) COPD (chronic obstructive pulmonary disease) Code(s): J44.9 - CHRONIC OBSTRUCTIVE PULMONARY DISEASE, UNSPECIFIED Qualifiers : COPD type: COPD with acute exacerbation Qualified Code(s): J44.1 - Chronic obstructive pulmonary disease with (acute) exacerbation; J44.1 - Chronic obstructive pulmonary disease with (acute) exacerbation; J44.1 - Chronic obstructive pulmonary disease with (acute) exacerbation; J44.1 - Chronic obstructive pulmonary disease with (acute) exacerbation (10) Septic shock Code(s): A41.9 - SEPSIS, UNSPECIFIED ORGANISM R65.21 - SEVERE SEPSIS WITH SEPTIC SHOCK Assessment/Plan A/P Septic shock COPD exacerbation Elevated troponins NSTEMI Acute on chronic renal failure Dementia Hyperkalemia -- -- po as per swallow therapist --continue solumedrol urine out put- improved iv fluids-- renal function better iv antibiotics cultures negative family not willing for dialysis Nebs DVT prophylaxis--- Heparin sc
[2017-06-12 08:58] LABS: ANION GAP 9 (8-16); CALCIUM 8.9 mg/dL (8.5-10.1); CO2 28 mmol/L (21-32); CREATININE 2.2 mg/dL (0.7-1.3); GLUCOSE,RANDOM 179 mg/dL (74-106)
[2017-06-12] MEDS ORDERED: MAG HYDROX/AL HYDROX/SIMETH 30 ML UNIT-DOSE CUP PO PRN (09:03)
[2017-06-12] MEDS ORDERED: PATIENT'S OWN MEDICATION (NON-FORMULARY) (Dorzolamide/Timolol/Pf [Cosopt Pf Eye Drops] 1 E OS SCH (10:00)
[2017-06-12] MEDS: PANTOPRAZOLE 40 MG TABLET (FP) PO SCH (10:21)
[2017-06-12] MEDS: ESCITALOPRAM OXALATE 20 MG TABLET (FP) PO SCH (10:21)
[2017-06-12] MEDS: GABAPENTIN 100 MG CAPSULE (FP) PO SCH ×2 (10:21→21:36)
[2017-06-12] MEDS: methylPREDNISolone NA SUCC 40 MG/1 ML VIAL IVPB SCH ×2 (10:22→21:37)
[2017-06-12] MEDS: BUDESONIDE/FORMETEROL FUMARATE 160/4.5 mcg INHALER IH SCH ×2 (10:23→21:37)
[2017-06-12] MEDS: CEFEPIME 0.5 GM in DEXTROSE 5%-WATER - 100 ML IVPB SCH (11:09)
--- NOTE | 2017-06-12 11:18 | PN ---
Progress Note, Physician History of Present Illness: seen and examined today in nad. states he continues to have chest discomfort and sob. - Current Medication List Current Medications: Active Medications Al Hydroxide/Mg Hydroxide (Mylanta Oral Suspension -) 30 ml PO Q6H PRN PRN Reason: DYSPEPSIA Albuterol Sulfate (Ventolin 0.083% Nebulizer Soln -) 1 amp NEB Q6H PRN PRN Reason: SHORT OF BREATH/WHEEZING Albuterol/Ipratropium (Duoneb -) 1 amp NEB Q4HPO [facility] Last Admin: 06/12/17 06:17 Dose: 1 amp Artificial Tears (Artificial Tears) 1 drop OU Q8H PRN PRN Reason: DRY EYES Last Admin: 06/12/17 06:44 Dose: 1 drop Atropine Sulfate (Atropine 1% Ophth. Solution -) 1 drop OS DAILY [facility] Budesonide/Formoterol Fumarate (Symbicort 160/4.5mcg -) 2 puff IH BID [facility] Last Admin: 06/12/17 10:23 Dose: 2 puff Clonazepam (Klonopin -) 0.25 mg PO BID PRN PRN Reason: ANXIETY Last Admin: 06/11/17 16:57 Dose: 0.25 mg Escitalopram Oxalate (Lexapro -) 20 mg PO DAILY [facility] Last Admin: 06/12/17 10:21 Dose: 20 mg Gabapentin (Neurontin -) 100 mg PO BID [facility] Last Admin: 06/12/17 10:21 Dose: 100 mg Heparin Sodium (Porcine) (Heparin -) 5,000 unit SQ TID [facility] Last Admin: 06/12/17 06:07 Dose: 5,000 unit Cefepime HCl 0.5 gm/ Dextrose 100 mls @ 200 mls/hr IVPB DAILY [facility] Last Admin: 06/12/17 11:09 Dose: 200 mls/hr Sodium Chloride (1/2 Normal Saline) 1,000 mls @ 60 mls/hr IV ASDIR [facility] Last Admin: 06/12/17 06:45 Dose: 60 mls/hr Insulin Aspart (Novolog Vial Sliding Scale -) 1 vial SQ ACHS DES PRN Reason: Protocol Last Admin: 06/12/17 06:08 Dose: 2 units Latanoprost (Xalatan 0.005% Eye Drops -) 1 drop OS HS DES Methylprednisolone Sodium Succinate (Solu-Medrol -) 40 mg IVPB BID [facility] Last Admin: 06/12/17 10:22 Dose: 40 mg Morphine Sulfate (Morphine Injection -) 2 mg IVPUSH Q4H PRN PRN Reason: PAIN Last Admin: 06/12/17 07:07 Dose: 2 mg Non-Formulary Medication (Dorzolamide/Timolol/Pf [Cosopt Pf Eye Drops]) 1 each OS BID [facility] Pantoprazole Sodium (Protonix -) 40 mg PO DAILY [facility] Last Admin: 06/12/17 10:21 Dose: 40 mg Tramadol HCl (Ultram -) 50 mg PO BID PRN PRN Reason: BACK PAIN Last Admin: 06/11/17 15:11 Dose: 50 mg - Objective Vital Signs: Vital Signs Temperature 98.0 F 06/12/17 08:44 Pulse Rate 78 06/12/17 08:44 Respiratory Rate 20 06/12/17 08:44 Blood Pressure 145/72 06/12/17 08:44 O2 Sat by Pulse Oximetry (%) 96 06/12/17 00:08 Constitutional: Yes: No Distress, Calm, Obese Eyes: Yes: Conjunctiva Clear, EOM Intact, PERRL HENT: Yes: Atraumatic, Normocephalic Neck: Yes: Supple, Trachea Midline Cardiovascular: Yes: Regular Rate and Rhythm, Murmur, S1, S2. No: Bradycardia, Tachycardia, Pulse Irregular, Bruit, JVD, Gallop, Rub, S3, S4, Varicosities Respiratory: Yes: Regular, Diminished, On Nasal O2, Rhonchi. No: Rales, SOB, Wheezes Gastrointestinal: Yes: Normal Bowel Sounds, Soft. No: Distention, Tenderness Musculoskeletal: Yes: Muscle Weakness Edema: No Peripheral Pulses WNL: Yes Neurological: Yes: Alert, Oriented Psychiatric: Yes: Alert, Oriented Labs: CBC, BMP 06/11/17 06:00 06/12/17 06:45 INR, PTT INR 1.27 (0.82-1.09) H 06/08/17 15:35 - ....Imaging Chest X-ray: Report Reviewed, Image Reviewed EKG: Report Reviewed, Image Reviewed Other: Report Reviewed, Image Reviewed Assessment/Plan IMP: Acute on chronic renal failure with hyperkalemia Sepsis secondary to UTI Chronic COPD DM PAD History of CAD Chest pain Mildly elevated TnI with normal CK-likely secondary to CKD and UTI, less likely ACS -episodes of chest pain yesterday and today -cardiac enzymes on admission to not sig trend up, would repeat cardiac enzymes today, ordered to be added on to am labs -ekg repeated yesterday not significantly changed from ekg 06/09 -resume ASA 81mg daily, does not appear to have contraindication -will start Imdur 30mg daily for anti-anginal tx -echo showed normal LV systolic function -will consider pharm stress test once overal clinically improves depending on overall goals of care -pt is of advanced age with multiple comorbidities including CKD, invasive work up with cardiac cath and possible PCI does not appear to be in his overall best interest, ideally would opt for medical therapy alone. SOB-COPD -overall euvolemic -Cxr showed no sig change, no sign of CHF -cont bipap as needed and supp O2 -receiving nebs, steroids, abx
[2017-06-12 12:03] LABS: TROPONIN I 0.25 ng/ml (0.00-0.05)
[2017-06-12] MEDS: ATROPINE SO4 1% OPHTH SOLN 5 ML BOTTLE OS SCH (12:24)
[2017-06-12] MEDS: ASPIRIN 81 MG CHEWABLE TABLETS PO SCH (12:29)
--- NOTE | 2017-06-12 12:29 | PN ---
Progress Note, Physician Chief Complaint: pulmonary alert,nad,on nasal cannula - Current Medication List Current Medications: Active Medications Al Hydroxide/Mg Hydroxide (Mylanta Oral Suspension -) 30 ml PO Q6H PRN PRN Reason: DYSPEPSIA Albuterol Sulfate (Ventolin 0.083% Nebulizer Soln -) 1 amp NEB Q6H PRN PRN Reason: SHORT OF BREATH/WHEEZING Albuterol/Ipratropium (Duoneb -) 1 amp NEB Q4HPO [facility] Last Admin: 06/12/17 11:16 Dose: Not Given Artificial Tears (Artificial Tears) 1 drop OU Q8H PRN PRN Reason: DRY EYES Last Admin: 06/12/17 06:44 Dose: 1 drop Aspirin (Asa -) 81 mg PO DAILY [facility] Atropine Sulfate (Atropine 1% Ophth. Solution -) 1 drop OS DAILY [facility] Budesonide/Formoterol Fumarate (Symbicort 160/4.5mcg -) 2 puff IH BID [facility] Last Admin: 06/12/17 10:23 Dose: 2 puff Clonazepam (Klonopin -) 0.25 mg PO BID PRN PRN Reason: ANXIETY Last Admin: 06/11/17 16:57 Dose: 0.25 mg Escitalopram Oxalate (Lexapro -) 20 mg PO DAILY [facility] Last Admin: 06/12/17 10:21 Dose: 20 mg Gabapentin (Neurontin -) 100 mg PO BID [facility] Last Admin: 06/12/17 10:21 Dose: 100 mg Heparin Sodium (Porcine) (Heparin -) 5,000 unit SQ TID [facility] Last Admin: 06/12/17 06:07 Dose: 5,000 unit Cefepime HCl 0.5 gm/ Dextrose 100 mls @ 200 mls/hr IVPB DAILY [facility] Last Admin: 06/12/17 11:09 Dose: 200 mls/hr Sodium Chloride (1/2 Normal Saline) 1,000 mls @ 60 mls/hr IV ASDIR [facility] Last Admin: 06/12/17 06:45 Dose: 60 mls/hr Insulin Aspart (Novolog Vial Sliding Scale -) 1 vial SQ ACHS DES PRN Reason: Protocol Last Admin: 06/12/17 06:08 Dose: 2 units Latanoprost (Xalatan 0.005% Eye Drops -) 1 drop OS HS [facility] Methylprednisolone Sodium Succinate (Solu-Medrol -) 40 mg IVPB BID [facility] Last Admin: 06/12/17 10:22 Dose: 40 mg Morphine Sulfate (Morphine Injection -) 2 mg IVPUSH Q4H PRN PRN Reason: PAIN Last Admin: 06/12/17 07:07 Dose: 2 mg Non-Formulary Medication (Dorzolamide/Timolol/Pf [Cosopt Pf Eye Drops]) 1 each OS BID [facility] Pantoprazole Sodium (Protonix -) 40 mg PO DAILY [facility] Last Admin: 06/12/17 10:21 Dose: 40 mg Tramadol HCl (Ultram -) 50 mg PO BID PRN PRN Reason: BACK PAIN Last Admin: 06/11/17 15:11 Dose: 50 mg - Objective Vital Signs: Vital Signs Temperature 98.0 F 06/12/17 08:44 Pulse Rate 75 06/12/17 11:16 Respiratory Rate 20 06/12/17 08:44 Blood Pressure 145/72 06/12/17 08:44 O2 Sat by Pulse Oximetry (%) 98 06/12/17 11:16 Constitutional: Yes: Well Nourished, Calm Eyes: Yes: WNL HENT: Yes: WNL Neck: Yes: WNL Cardiovascular: Yes: Regular Rate and Rhythm, S1, S2 Respiratory: Yes: Rhonchi (few rhonchi) Gastrointestinal: Yes: Normal Bowel Sounds, Soft Extremities: Yes: WNL Edema: No Labs: CBC, BMP 06/11/17 06:00 06/12/17 06:45 INR, PTT INR 1.27 (0.82-1.09) H 06/08/17 15:35 Assessment/Plan Problem List - Problems (1) Acute on chronic renal failure Code(s): N17.9 - ACUTE KIDNEY FAILURE, UNSPECIFIED N18.9 - CHRONIC KIDNEY DISEASE, UNSPECIFIED (2) Acute respiratory failure with hypoxia and hypercarbia Code(s): J96.01 - ACUTE RESPIRATORY FAILURE WITH HYPOXIA J96.02 - ACUTE RESPIRATORY FAILURE WITH HYPERCAPNIA (3) Altered mental status Code(s): R41.82 - ALTERED MENTAL STATUS, UNSPECIFIED (4) Acute CHF (congestive heart failure) Code(s): I50.9 - HEART FAILURE, UNSPECIFIED Qualifiers: Congestive heart failure type: unspecified congestive heart failure type Qualified Code(s): I50.9 - Heart failure, unspecified; I50.9 - Heart failure , unspecified; I50.9 - Heart failure, unspecified; I50.9 - Heart failure, unspecified (5) Acute renal failure Code(s): N17.9 - ACUTE KIDNEY FAILURE, UNSPECIFIED (6) Anemia Code(s): D64.9 - ANEMIA, UNSPECIFIED (7) CAD (coronary artery disease) Code(s): I25.10 - ATHSCL HEART DISEASE OF [place] CORONARY ARTERY W/O ANG PCTRS Qualifiers: Coronary Disease-Associated Artery/Lesion type: [place] artery [place] vs. transplanted heart: [place] heart Associated angina: without angina Qualified Code(s): I25.10 - Atherosclerotic heart disease of [place] coronary artery without angina pectoris; I25.10 - Atherosclerotic heart disease of [place] coronary artery without angina pectoris; I25.10 - Atherosclerotic heart disease of [place] coronary artery without angina pectoris (8) CHF (congestive heart failure) Code(s): I50.9 - HEART FAILURE, UNSPECIFIED Assessment/Plan Acute Hypercapneic Respiratory Failure improved COPD HTN (?) PNA Acute on Chronic Renal Failure improving UTI Sepsis PPM CAD VM O2,NC as tolerated NIPPV support as needed Aspiration precautions steroid taper ABX per ID Strict I&O VTE prophylaxis DNR/DNI DR GRECO
[2017-06-12] MEDS: clonazePAM 0.5 MG TABLET PO PRN ×2 (15:09→23:00)
[2017-06-12] MEDS ORDERED: INSULIN DETEMIR 100 UNITS/ML MDV SQ ONE (18:04)
--- NOTE | 2017-06-12 20:36 | PN ---
Progress Note (short form) - Note Progress Note: hyperkalemia ckd Current Medications Al Hydroxide/Mg Hydroxide (Mylanta Oral Suspension -) 30 ml PO Q6H PRN PRN Reason: DYSPEPSIA Albuterol Sulfate (Ventolin 0.083% Nebulizer Soln -) 1 amp NEB Q6H PRN PRN Reason: SHORT OF BREATH/WHEEZING Albuterol/Ipratropium (Duoneb -) 1 amp NEB Q4HPO [facility] Last Admin: 06/12/17 17:58 Dose: Not Given Artificial Tears (Artificial Tears) 1 drop OU Q8H PRN PRN Reason: DRY EYES Last Admin: 06/12/17 15:09 Dose: 1 drop Aspirin (Asa -) 81 mg PO DAILY [facility] Last Admin: 06/12/17 12:29 Dose: 81 mg Atropine Sulfate (Atropine 1% Ophth. Solution -) 1 drop OS DAILY [facility] Last Admin: 06/12/17 12:24 Dose: Not Given Budesonide/Formoterol Fumarate (Symbicort 160/4.5mcg -) 2 puff IH BID [facility] Last Admin: 06/12/17 10:23 Dose: 2 puff Clonazepam (Klonopin -) 0.25 mg PO BID PRN PRN Reason: ANXIETY Last Admin: 06/12/17 15:09 Dose: 0.25 mg Dorzolamide HCl (Trusopt 2%) 1 drop OS BID [facility] Escitalopram Oxalate (Lexapro -) 20 mg PO DAILY [facility] Last Admin: 06/12/17 10:21 Dose: 20 mg Gabapentin (Neurontin -) 100 mg PO BID [facility] Last Admin: 06/12/17 10:21 Dose: 100 mg Heparin Sodium (Porcine) (Heparin -) 5,000 unit SQ TID [facility] Last Admin: 06/12/17 13:54 Dose: 5,000 unit Cefepime HCl 0.5 gm/ Dextrose 100 mls @ 200 mls/hr IVPB DAILY [facility] Last Admin: 06/12/17 11:09 Dose: 200 mls/hr Sodium Chloride (1/2 Normal Saline) 1,000 mls @ 60 mls/hr IV ASDIR [facility] Last Admin: 06/12/17 17:20 Dose: Not Given Insulin Aspart (Novolog Vial Sliding Scale -) 1 vial SQ ACHS [facility] PRN Reason: Protocol Last Admin: 06/12/17 17:25 Dose: 4 units Latanoprost (Xalatan 0.005% Eye Drops -) 1 drop OS HS [facility] Methylprednisolone Sodium Succinate (Solu-Medrol -) 40 mg IVPB BID [facility] Stop: 06/13/17 10:00 Last Admin: 06/12/17 10:22 Dose: 40 mg Methylprednisolone Sodium Succinate (Solu-Medrol -) 40 mg IVPB DAILY [facility] Morphine Sulfate (Morphine Injection -) 2 mg IVPUSH Q4H PRN PRN Reason: PAIN Last Admin: 06/12/17 19:17 Dose: 2 mg Pantoprazole Sodium (Protonix -) 40 mg PO DAILY [facility] Last Admin: 06/12/17 10:21 Dose: 40 mg Timolol Maleate (Timoptic 0.5%) 1 drop OS BID [facility] Tramadol HCl (Ultram -) 50 mg PO BID PRN PRN Reason: BACK PAIN Last Admin: 06/11/17 15:11 Dose: 50 mg Last Vital Signs Temp Pulse Resp BP Pulse Ox 98.1 F 80 20 135/65 98 06/12/17 18:00 06/12/17 18:00 06/12/17 18:00 06/12/17 18:00 06/12/17 11:16 lungs clear Heart reg Abd soft nontender Ext no edema CBC, BMP 06/11/17 06:00 06/12/17 06:45 IMP- hyperkalemia SIOBHAN/CKD anemia Plan- kayexalate Hydration
[2017-06-12] MEDS: TIMOLOL 0.5% OPHTHALMIC SOL 5 ML BOTTLE OS SCH (21:37)
[2017-06-12] MEDS: DORZOLAMIDE 2% HCL OPHTHALMIC SOLUTION 10 ML BOTTLE OS SCH (21:38)
[2017-06-12] MEDS: LATANOPROST 0.005% OPHTH SOLN 2.5ML BOTTLE OS SCH (21:38)
[2017-06-13] MEDS: ALBUTEROL SO4 2.5/IPRATROPIUM 0.5 INH SOL 3 ML VIAL.NEB. NEB SCH ×6 (02:07→22:29)
[2017-06-13] MEDS: morphine CARPU-JECT 2 MG/1 ML DISP.SYRIN IVPUSH PRN ×2 (03:10→08:59)
[2017-06-13] MEDS: clonazePAM 0.5 MG TABLET PO PRN (05:43)
[2017-06-13] MEDS: HEPARIN NA (PORCINE) 5,000 UNITS/ML 1ML VIAL SQ SCH ×3 (05:43→22:10)
[2017-06-13] MEDS: INSULIN SLIDING SCALE (NOVOLOG) 1 VIAL SQ SCH ×4 (06:01→22:07)
--- NOTE | 2017-06-13 09:22 | PN ---
Progress Note, Physician Chief Complaint: ID Day 5 Cefepime in the hospital Previously treated [employer] Remains dyspneic - Current Medication List Current Medications: Active Medications Al Hydroxide/Mg Hydroxide (Mylanta Oral Suspension -) 30 ml PO Q6H PRN PRN Reason: DYSPEPSIA Albuterol Sulfate (Ventolin 0.083% Nebulizer Soln -) 1 amp NEB Q6H PRN PRN Reason: SHORT OF BREATH/WHEEZING Albuterol/Ipratropium (Duoneb -) 1 amp NEB Q4HPO [facility] Last Admin: 06/13/17 06:15 Dose: 1 amp Artificial Tears (Artificial Tears) 1 drop OU Q8H PRN PRN Reason: DRY EYES Last Admin: 06/12/17 15:09 Dose: 1 drop Aspirin (Asa -) 81 mg PO DAILY [facility] Last Admin: 06/12/17 12:29 Dose: 81 mg Atropine Sulfate (Atropine 1% Ophth. Solution -) 1 drop OS DAILY [facility] Last Admin: 06/12/17 12:24 Dose: Not Given Budesonide/Formoterol Fumarate (Symbicort 160/4.5mcg -) 2 puff IH BID [facility] Last Admin: 06/12/17 21:37 Dose: 2 puff Clonazepam (Klonopin -) 0.25 mg PO BID PRN PRN Reason: ANXIETY Last Admin: 06/13/17 05:43 Dose: 0.25 mg Dorzolamide HCl (Trusopt 2%) 1 drop OS BID [facility] Last Admin: 06/12/17 21:38 Dose: 1 drop Escitalopram Oxalate (Lexapro -) 20 mg PO DAILY [facility] Last Admin: 06/12/17 10:21 Dose: 20 mg Gabapentin (Neurontin -) 100 mg PO BID [facility] Last Admin: 06/12/17 21:36 Dose: 100 mg Heparin Sodium (Porcine) (Heparin -) 5,000 unit SQ TID [facility] Last Admin: 06/13/17 05:43 Dose: 5,000 unit Cefepime HCl 0.5 gm/ Dextrose 100 mls @ 200 mls/hr IVPB DAILY [facility] Last Admin: 06/12/17 11:09 Dose: 200 mls/hr Sodium Chloride (1/2 Normal Saline) 1,000 mls @ 60 mls/hr IV ASDIR [facility] Last Admin: 06/12/17 17:20 Dose: Not Given Insulin Aspart (Novolog Vial Sliding Scale -) 1 vial SQ ACHS [facility] PRN Reason: Protocol Last Admin: 06/13/17 06:01 Dose: 2 units Isosorbide Mononitrate (Imdur -) 30 mg PO DAILY [facility] Latanoprost (Xalatan 0.005% Eye Drops -) 1 drop OS HS [facility] Last Admin: 06/12/17 21:38 Dose: 1 drop Methylprednisolone Sodium Succinate (Solu-Medrol -) 40 mg IVPB BID [facility] Stop: 06/13/17 10:00 Last Admin: 06/12/17 21:37 Dose: 40 mg Methylprednisolone Sodium Succinate (Solu-Medrol -) 40 mg IVPB DAILY [facility] Morphine Sulfate (Morphine Injection -) 2 mg IVPUSH Q4H PRN PRN Reason: PAIN Last Admin: 06/13/17 08:59 Dose: 2 mg Pantoprazole Sodium (Protonix -) 40 mg PO DAILY [facility] Last Admin: 06/12/17 10:21 Dose: 40 mg Timolol Maleate (Timoptic 0.5%) 1 drop OS BID [facility] Last Admin: 06/12/17 21:37 Dose: 1 drop Tramadol HCl (Ultram -) 50 mg PO BID PRN PRN Reason: BACK PAIN Last Admin: 06/11/17 15:11 Dose: 50 mg - Objective Vital Signs: Vital Signs Temperature 97.7 F 06/13/17 06:00 Pulse Rate 64 06/13/17 06:00 Respiratory Rate 20 06/13/17 06:00 Blood Pressure 165/71 06/13/17 06:00 O2 Sat by Pulse Oximetry (%) 98 06/13/17 06:00 Cardiovascular: Yes: S1, S2 Respiratory: Yes: Rhonchi Gastrointestinal: Yes: Normal Bowel Sounds, Soft. No: Tenderness Edema: No Labs: CBC, BMP 06/11/17 06:00 06/12/17 06:45 INR, PTT INR 1.27 (0.82-1.09) H 06/08/17 15:35 Assessment/Plan Laboratory Tests 06/11/17 06:00 WBC 19.5 H Hgb 9.4 L Hct 29.3 L Plt Count 533 H Assessment Afebrile leukocytosis secondary to steroids Cultures neg Plan Can stop antibiotics at this time and recall as needed Connie FAIRCHILD
[2017-06-13] MEDS ORDERED: MORPHINE 100 MG in SODIUM CHLORIDE 98 ML IVPB SCH ×2 (09:30→11:30)
--- NOTE | 2017-06-13 09:30 | PN ---
Progress Note, Physician History of Present Illness: seen and examined today, respiratory distress, minimally responsive, on bipap. - Current Medication List Current Medications: Active Medications Al Hydroxide/Mg Hydroxide (Mylanta Oral Suspension -) 30 ml PO Q6H PRN PRN Reason: DYSPEPSIA Albuterol Sulfate (Ventolin 0.083% Nebulizer Soln -) 1 amp NEB Q6H PRN PRN Reason: SHORT OF BREATH/WHEEZING Albuterol/Ipratropium (Duoneb -) 1 amp NEB Q4HPO [facility] Last Admin: 06/13/17 06:15 Dose: 1 amp Artificial Tears (Artificial Tears) 1 drop OU Q8H PRN PRN Reason: DRY EYES Last Admin: 06/12/17 15:09 Dose: 1 drop Aspirin (Asa -) 81 mg PO DAILY [facility] Last Admin: 06/12/17 12:29 Dose: 81 mg Atropine Sulfate (Atropine 1% Ophth. Solution -) 1 drop OS DAILY [facility] Last Admin: 06/12/17 12:24 Dose: Not Given Budesonide/Formoterol Fumarate (Symbicort 160/4.5mcg -) 2 puff IH BID [facility] Last Admin: 06/12/17 21:37 Dose: 2 puff Clonazepam (Klonopin -) 0.25 mg PO BID PRN PRN Reason: ANXIETY Last Admin: 06/13/17 05:43 Dose: 0.25 mg Dorzolamide HCl (Trusopt 2%) 1 drop OS BID [facility] Last Admin: 06/12/17 21:38 Dose: 1 drop Escitalopram Oxalate (Lexapro -) 20 mg PO DAILY [facility] Last Admin: 06/12/17 10:21 Dose: 20 mg Gabapentin (Neurontin -) 100 mg PO BID [facility] Last Admin: 06/12/17 21:36 Dose: 100 mg Heparin Sodium (Porcine) (Heparin -) 5,000 unit SQ TID [facility] Last Admin: 06/13/17 05:43 Dose: 5,000 unit Sodium Chloride (1/2 Normal Saline) 1,000 mls @ 60 mls/hr IV ASDIR [facility] Last Admin: 06/12/17 17:20 Dose: Not Given Morphine Sulfate 100 mg/ (Sodium Chloride) 100 mls @ 1 mls/hr IVPB TITR DES; 1 MG/HR PRN Reason: Protocol Insulin Aspart (Novolog Vial Sliding Scale -) 1 vial SQ ACHS [facility] PRN Reason: Protocol Last Admin: 06/13/17 06:01 Dose: 2 units Isosorbide Mononitrate (Imdur -) 30 mg PO DAILY [facility] Latanoprost (Xalatan 0.005% Eye Drops -) 1 drop OS HS [facility] Last Admin: 06/12/17 21:38 Dose: 1 drop Methylprednisolone Sodium Succinate (Solu-Medrol -) 40 mg IVPB BID [facility] Stop: 06/13/17 10:00 Last Admin: 06/12/17 21:37 Dose: 40 mg Methylprednisolone Sodium Succinate (Solu-Medrol -) 40 mg IVPB DAILY [facility] Morphine Sulfate (Morphine Injection -) 2 mg IVPUSH Q4H PRN PRN Reason: PAIN Last Admin: 06/13/17 08:59 Dose: 2 mg Pantoprazole Sodium (Protonix -) 40 mg PO DAILY [facility] Last Admin: 06/12/17 10:21 Dose: 40 mg Timolol Maleate (Timoptic 0.5%) 1 drop OS BID [facility] Last Admin: 06/12/17 21:37 Dose: 1 drop Tramadol HCl (Ultram -) 50 mg PO BID PRN PRN Reason: BACK PAIN Last Admin: 06/11/17 15:11 Dose: 50 mg - Objective Vital Signs: Vital Signs Temperature 97.7 F 06/13/17 06:00 Pulse Rate 64 06/13/17 06:00 Respiratory Rate 20 06/13/17 06:00 Blood Pressure 165/71 06/13/17 06:00 O2 Sat by Pulse Oximetry (%) 98 06/13/17 06:00 Constitutional: Yes: Diaphoresis, Severe Distress HENT: Yes: Atraumatic, Normocephalic Neck: Yes: Supple, Trachea Midline Cardiovascular: Yes: Tachycardia, S1, S2. No: Bradycardia, Pulse Irregular, Bruit, JVD, Gallop, Murmur, Rub, S3, S4, Varicosities Respiratory: Yes: Accessory Muscle Use, Diminished, On BiPap, SOB, Tachypnea. No: Rhonchi, Wheezes Gastrointestinal: Yes: Normal Bowel Sounds, Soft. No: Distention, Tenderness Edema: No Neurological: Yes: Unresponsive. No: Alert, Oriented Psychiatric: No: Alert, Oriented Labs: CBC, BMP 06/11/17 06:00 06/12/17 06:45 INR, PTT INR 1.27 (0.82-1.09) H 06/08/17 15:35 - ....Imaging Chest X-ray: Report Reviewed, Image Reviewed EKG: Report Reviewed, Image Reviewed Other: Report Reviewed, Image Reviewed Assessment/Plan IMP: Acute on chronic renal failure with hyperkalemia Sepsis secondary to UTI Chronic COPD DM PAD History of CAD Chest pain Elevated troponin Respiratory distress, diaphoresis, tachycardia, minimally responsive this am -pts son was contacted to discuss goals of care, again he states that neither he nor the patient want aggressive measures to be taken, and he agrees to Morphine gtt for comfort care -while that call was being made a Cxr, EKG, ABG, CBC, and CMP were done -acidosis and hypercapnea as well as tachycardia with ischemia on ekg, pulm vasc congestion on Cxr, and elevated WBC, K, and troponin levels noted -as comfort care is the goal morphine gtt was started -Lasix 80mg IV ordered -Bipap was stopped due to minimal responsiveness -pt is DNR/DNI -palliative care team was contacted -no additional aggressive measures to be taken
[2017-06-13 10:00] LABS: ARTERIAL BLD GAS O2 SATURATION 99.7 % (90-98.9); ARTERIAL BLOOD GAS HCO3 25.8 meq/L (22-26)
[2017-06-13] MEDS ORDERED: ISOSORBIDE MONONITRATE 30 MG TAB.SR.24H (FP) PO SCH (10:00)
[2017-06-13 10:01] LABS: ALLENS TEST POSITIVE; ART PUNCT SITE RIGHT RADIAL; ARTERIAL BLOOD GAS pH 7.16 (7.35-7.45); LPM/O2% 100; PT. ON O2? YES; TYPE OF O2 BIPAP; VENT RATE 20; VT/PRESS EPAP 7
--- NOTE | 2017-06-13 10:27 | PN ---
Progress Note, Physician History of Present Illness: Pt seen and examined at bedside. He is now in the medical nieto. Pt is lethargic. He was started on Bipap. - Current Medication List Current Medications: Active Medications Al Hydroxide/Mg Hydroxide (Mylanta Oral Suspension -) 30 ml PO Q6H PRN PRN Reason: DYSPEPSIA Albuterol Sulfate (Ventolin 0.083% Nebulizer Soln -) 1 amp NEB Q6H PRN PRN Reason: SHORT OF BREATH/WHEEZING Albuterol/Ipratropium (Duoneb -) 1 amp NEB Q4HPO [facility] Last Admin: 06/13/17 06:15 Dose: 1 amp Artificial Tears (Artificial Tears) 1 drop OU Q8H PRN PRN Reason: DRY EYES Last Admin: 06/12/17 15:09 Dose: 1 drop Aspirin (Asa -) 81 mg PO DAILY [facility] Last Admin: 06/12/17 12:29 Dose: 81 mg Atropine Sulfate (Atropine 1% Ophth. Solution -) 1 drop OS DAILY [facility] Last Admin: 06/12/17 12:24 Dose: Not Given Budesonide/Formoterol Fumarate (Symbicort 160/4.5mcg -) 2 puff IH BID [facility] Last Admin: 06/12/17 21:37 Dose: 2 puff Clonazepam (Klonopin -) 0.25 mg PO BID PRN PRN Reason: ANXIETY Last Admin: 06/13/17 05:43 Dose: 0.25 mg Dorzolamide HCl (Trusopt 2%) 1 drop OS BID [facility] Last Admin: 06/12/17 21:38 Dose: 1 drop Escitalopram Oxalate (Lexapro -) 20 mg PO DAILY [facility] Last Admin: 06/12/17 10:21 Dose: 20 mg Gabapentin (Neurontin -) 100 mg PO BID [facility] Last Admin: 06/12/17 21:36 Dose: 100 mg Heparin Sodium (Porcine) (Heparin -) 5,000 unit SQ TID [facility] Last Admin: 06/13/17 05:43 Dose: 5,000 unit Sodium Chloride (1/2 Normal Saline) 1,000 mls @ 60 mls/hr IV ASDIR [facility] Last Admin: 06/12/17 17:20 Dose: Not Given Morphine Sulfate 100 mg/ (Sodium Chloride) 100 mls @ 1 mls/hr IVPB TITR [facility]; 1 MG/HR PRN Reason: Protocol Insulin Aspart (Novolog Vial Sliding Scale -) 1 vial SQ ACHS [facility] PRN Reason: Protocol Last Admin: 06/13/17 06:01 Dose: 2 units Isosorbide Mononitrate (Imdur -) 30 mg PO DAILY [facility] Latanoprost (Xalatan 0.005% Eye Drops -) 1 drop OS HS [facility] Last Admin: 06/12/17 21:38 Dose: 1 drop Methylprednisolone Sodium Succinate (Solu-Medrol -) 40 mg IVPB DAILY [facility] Morphine Sulfate (Morphine Injection -) 2 mg IVPUSH Q4H PRN PRN Reason: PAIN Last Admin: 06/13/17 08:59 Dose: 2 mg Pantoprazole Sodium (Protonix -) 40 mg PO DAILY [facility] Last Admin: 06/12/17 10:21 Dose: 40 mg Timolol Maleate (Timoptic 0.5%) 1 drop OS BID [facility] Last Admin: 06/12/17 21:37 Dose: 1 drop Tramadol HCl (Ultram -) 50 mg PO BID PRN PRN Reason: BACK PAIN Last Admin: 06/11/17 15:11 Dose: 50 mg - Objective Vital Signs: Vital Signs Temperature 97.7 F 06/13/17 06:00 Pulse Rate 64 06/13/17 06:00 Respiratory Rate 20 06/13/17 06:00 Blood Pressure 165/71 06/13/17 06:00 O2 Sat by Pulse Oximetry (%) 98 06/13/17 06:00 Constitutional: Yes: Moderate Distress Eyes: Yes: Conjunctiva Clear Cardiovascular: Yes: S1, S2 Respiratory: Yes: On BiPap Gastrointestinal: Yes: Soft Genitourinary: Yes: Incontinence Musculoskeletal: Yes: Muscle Weakness Edema: No Neurological: Yes: Lethargy Labs: CBC, BMP 06/11/17 06:00 06/12/17 06:45 INR, PTT INR 1.27 (0.82-1.09) H 06/08/17 15:35 Problem List - Problems (1) Acute on chronic renal failure Code(s): N17.9 - ACUTE KIDNEY FAILURE, UNSPECIFIED N18.9 - CHRONIC KIDNEY DISEASE, UNSPECIFIED (2) Acute respiratory failure with hypoxia and hypercarbia Code(s): J96.01 - ACUTE RESPIRATORY FAILURE WITH HYPOXIA J96.02 - ACUTE RESPIRATORY FAILURE WITH HYPERCAPNIA (3) Septic shock Code(s): A41.9 - SEPSIS, UNSPECIFIED ORGANISM R65.21 - SEVERE SEPSIS WITH SEPTIC SHOCK (4) CHF (congestive heart failure) Code(s): I50.9 - HEART FAILURE, UNSPECIFIED (5) COPD (chronic obstructive pulmonary disease) Code(s): J44.9 - CHRONIC OBSTRUCTIVE PULMONARY DISEASE, UNSPECIFIED Qualifiers : COPD type: COPD with acute exacerbation Qualified Code(s): J44.1 - Chronic obstructive pulmonary disease with (acute) exacerbation; J44.1 - Chronic obstructive pulmonary disease with (acute) exacerbation; J44.1 - Chronic obstructive pulmonary disease with (acute) exacerbation; J44.1 - Chronic obstructive pulmonary disease with (acute) exacerbation (6) Hyperkalemia Code(s): E87.5 - HYPERKALEMIA Assessment/Plan Current Medications Generic Name Dose Route Start Last Admin Trade Name Freq PRN Reason Stop Dose Admin Al Hydroxide/Mg Hydroxide 30 ml 06/12/17 09:03 Mylanta Oral Suspension - PO Q6H PRN DYSPEPSIA Albuterol Sulfate 1 amp 06/10/17 16:51 Ventolin 0.083% Nebulizer Soln - NEB Q6H PRN SHORT OF BREATH/WHEEZING Albuterol/Ipratropium 1 amp 06/10/17 18:00 06/13/17 06:15 Duoneb - NEB 1 amp Q4HPO [facility] Administration Artificial Tears 1 drop 06/11/17 12:52 06/12/17 15:09 Artificial Tears OU 1 drop Q8H PRN Administration DRY EYES Aspirin 81 mg 06/12/17 11:15 06/12/17 12:29 Asa - PO 81 mg DAILY [facility] Administration Atropine Sulfate 1 drop 06/12/17 10:00 06/12/17 12:24 Atropine 1% Ophth. Solution - OS Not Given DAILY [facility] Budesonide/Formoterol Fumarate 2 puff 06/11/17 22:00 06/12/17 21:37 Symbicort 160/4.5mcg - IH 2 puff BID [facility] Administration Clonazepam 0.25 mg 06/11/17 12:53 06/13/17 05:43 Klonopin - PO 0.25 mg BID PRN Administration ANXIETY Dorzolamide HCl 1 drop 06/12/17 22:00 06/12/17 21:38 Trusopt 2% OS 1 drop BID DES Administration Escitalopram Oxalate 20 mg 06/12/17 10:00 06/12/17 10:21 Lexapro - PO 20 mg DAILY [facility] Administration Gabapentin 100 mg 06/11/17 22:00 06/12/17 21:36 Neurontin - PO 100 mg BID [facility] Administration Heparin Sodium (Porcine) 5,000 unit 06/10/17 22:00 06/13/17 05:43 Heparin - SQ 5,000 unit TID [facility] Administration Sodium Chloride 1,000 mls @ 60 mls/hr 06/10/17 16:51 06/12/17 17:20 1/2 Normal Saline IV Not Given ASDIR DES Morphine Sulfate 100 mg/ 100 mls @ 1 mls/hr 06/13/17 09:30 Sodium Chloride IVPB TITR DES Protocol 1 MG/HR Insulin Aspart 1 vial 06/10/17 22:00 06/13/17 06:01 Novolog Vial Sliding Scale - SQ 2 units ACHS DES Administration Protocol Isosorbide Mononitrate 30 mg 06/13/17 10:00 Imdur - PO DAILY [facility] Latanoprost 1 drop 06/12/17 22:00 06/12/17 21:38 Xalatan 0.005% Eye Drops - OS 1 drop HS DES Administration Methylprednisolone Sodium Succinate 40 mg 06/13/17 10:00 Solu-Medrol - IVPB DAILY [facility] Morphine Sulfate 2 mg 06/10/17 16:51 06/13/17 08:59 Morphine Injection - IVPUSH 2 mg Q4H PRN Administration PAIN Pantoprazole Sodium 40 mg 06/11/17 13:00 06/12/17 10:21 Protonix - PO 40 mg DAILY [facility] Administration Timolol Maleate 1 drop 06/12/17 22:00 06/12/17 21:37 Timoptic 0.5% OS 1 drop BID DES Administration Tramadol HCl 50 mg 06/11/17 12:54 06/11/17 15:11 Ultram - PO 50 mg BID PRN Administration BACK PAIN Laboratory Tests 06/13/17 09:40 ABG pH 7.16 L* D ABG pCO2 at Pt Temp 75.8 H* D ABG pO2 at Pt Temp 200.0 H* D ABG HCO3 25.8 ABG O2 Sat (Measured) 99.7 H* ABG O2 Content 16.0 Impression 1. SIBOHAN 2. hx of CKD 3. hyperkalemia 4. anemia 5. hx GI bleed 6. dementia 7. CLL 8. CHF 9. HTN 10. thrombocytosis Plan - follow up cxr - can stop fluids for now - renal function is improving - no labs from today, follow up labs - spoke to nurse, pt is going on a morphine drip - pt now on bipap - jaison on hold - discussed with cardio Dr Armas
[2017-06-13] MEDS ORDERED: FUROSEMIDE 40 MG/4 ML INJECTABLE VIAL IVPB ONE (10:34)
[2017-06-13 10:47] LABS: MCH 25.2 pg (25.7-33.7); MCHC 30.2 g/dl (32.0-35.9); MEAN CELL VOLUME 83.7 fl (80-96); MEAN PLT VOLUME 7.4 fl (7.5-11.1); PLATELET COUNT 822 K/MM3 (134-434); RDW 16.6 % (11.9-15.9)
[2017-06-13 10:49] LABS: ALBUMIN 3.6 g/dl (3.4-5.0); ANION GAP 9 (8-16); CALCIUM 9.3 mg/dL (8.5-10.1); CO2 29 mmol/L (21-32); CREATININE 2.1 mg/dL (0.7-1.3); GLUCOSE,RANDOM 165 mg/dL (74-106); SGPT/ALT 31 U/L (12-78)
[2017-06-13 10:53] LABS: WHITE BLOOD COUNT 83.3 K/mm3 (4.0-10.0)
[2017-06-13 11:04] LABS: ALK PHOS 128 U/L (45-117); BILIRUBIN,TOTAL 0.6 mg/dL (0.2-1.0); CPK 129 IU/L (39-308); TOT PROT 7.8 g/dl (6.4-8.2)
[2017-06-13 11:09] LABS: MAGNESIUM 2.5 mg/dL (1.8-2.4); SGOT/AST 44 U/L (15-37)
[2017-06-13 11:10] LABS: TROPONIN I 1.07 ng/ml (0.00-0.05)
--- NOTE | 2017-06-13 11:12 | PN ---
Progress Note (short form) - Note Progress Note: Disoriented on NIPPV. Agitated. Being started on MS drip for comfort. Intake & Output 06/10/17 06/11/17 06/12/17 06/13/17 23:59 23:59 23:59 23:59 Intake Total 313 1670 1490 870 Output Total 1150 1500 600 300 Balance -837 170 890 570 Weight 170 lb 7 oz 173 lb 4.8 oz 174 lb 11.2 oz Last Vital Signs Temp Pulse Resp BP Pulse Ox 97.7 F 64 20 165/71 98 06/13/17 06:00 06/13/17 06:00 06/13/17 06:00 06/13/17 06:00 06/13/17 06:00 Active Medications Al Hydroxide/Mg Hydroxide (Mylanta Oral Suspension -) 30 ml PO Q6H PRN PRN Reason: DYSPEPSIA Albuterol Sulfate (Ventolin 0.083% Nebulizer Soln -) 1 amp NEB Q6H PRN PRN Reason: SHORT OF BREATH/WHEEZING Albuterol/Ipratropium (Duoneb -) 1 amp NEB Q4HPO [facility] Last Admin: 06/13/17 06:15 Dose: 1 amp Artificial Tears (Artificial Tears) 1 drop OU Q8H PRN PRN Reason: DRY EYES Last Admin: 06/12/17 15:09 Dose: 1 drop Aspirin (Asa -) 81 mg PO DAILY [facility] Last Admin: 06/12/17 12:29 Dose: 81 mg Atropine Sulfate (Atropine 1% Ophth. Solution -) 1 drop OS DAILY [facility] Last Admin: 06/12/17 12:24 Dose: Not Given Budesonide/Formoterol Fumarate (Symbicort 160/4.5mcg -) 2 puff IH BID [facility] Last Admin: 06/12/17 21:37 Dose: 2 puff Clonazepam (Klonopin -) 0.25 mg PO BID PRN PRN Reason: ANXIETY Last Admin: 06/13/17 05:43 Dose: 0.25 mg Dorzolamide HCl (Trusopt 2%) 1 drop OS BID [facility] Last Admin: 06/12/17 21:38 Dose: 1 drop Escitalopram Oxalate (Lexapro -) 20 mg PO DAILY [facility] Last Admin: 06/12/17 10:21 Dose: 20 mg Gabapentin (Neurontin -) 100 mg PO BID [facility] Last Admin: 06/12/17 21:36 Dose: 100 mg Heparin Sodium (Porcine) (Heparin -) 5,000 unit SQ TID [facility] Last Admin: 06/13/17 05:43 Dose: 5,000 unit Sodium Chloride (1/2 Normal Saline) 1,000 mls @ 60 mls/hr IV ASDIR [facility] Last Admin: 06/12/17 17:20 Dose: Not Given Morphine Sulfate 100 mg/ (Sodium Chloride) 100 mls @ 1 mls/hr IVPB TITR DES; 1 MG/HR PRN Reason: Protocol Insulin Aspart (Novolog Vial Sliding Scale -) 1 vial SQ ACHS DES PRN Reason: Protocol Last Admin: 06/13/17 06:01 Dose: 2 units Isosorbide Mononitrate (Imdur -) 30 mg PO DAILY [facility] Latanoprost (Xalatan 0.005% Eye Drops -) 1 drop OS HS [facility] Last Admin: 06/12/17 21:38 Dose: 1 drop Methylprednisolone Sodium Succinate (Solu-Medrol -) 40 mg IVPB DAILY [facility] Pantoprazole Sodium (Protonix -) 40 mg PO DAILY [facility] Last Admin: 06/12/17 10:21 Dose: 40 mg Timolol Maleate (Timoptic 0.5%) 1 drop OS BID [facility] Last Admin: 06/12/17 21:37 Dose: 1 drop Tramadol HCl (Ultram -) 50 mg PO BID PRN PRN Reason: BACK PAIN Last Admin: 06/11/17 15:11 Dose: 50 mg Constitutional: Yes: Confused and agitated on NIPPV Eyes: Yes: Cataracts, right surgical pupil HENT: Yes: Atraumatic, Normocephalic Neck: Yes: Trachea Midline Cardiovascular: Yes: Regular Rate and Rhythm Respiratory: Yes: On NIPPV, basilar coarse rhonchi Gastrointestinal: Yes: Soft, Abdomen, Obese, (+) BS Renal/: Yes: Ling Present, Oliguria Edema: No Peripheral Pulses WNL: Yes Integumentary: Yes: WNL Neurological: Yes: Confused Labs: Laboratory Results - last 24 hr 06/12/17 06/12/17 06/12/17 11:44 12:25 17:23 WBC RBC Hgb Hct MCV MCH MCHC RDW Plt Count MPV Neutrophils % Lymphocytes % Puncture Site ABG pH ABG pCO2 at Pt Temp ABG pO2 at Pt Temp ABG HCO3 ABG O2 Sat (Measured) ABG O2 Content ABG Base Excess [place] Test O2 Delivery Device Oxygen Flow Rate Vent Mode Vent Rate Pressure Support Vent Sodium Potassium Chloride Carbon Dioxide Anion Gap BUN Creatinine Creat Clearance w eGFR POC Glucometer 172 234 Random Glucose Calcium Magnesium Total Bilirubin AST ALT Alkaline Phosphatase Creatine Kinase 29 L Troponin I 0.25 H D Total Protein Albumin 06/12/17 06/13/17 06/13/17 21:47 05:58 08:49 WBC RBC Hgb Hct MCV MCH MCHC RDW Plt Count MPV Neutrophils % Lymphocytes % Puncture Site ABG pH ABG pCO2 at Pt Temp ABG pO2 at Pt Temp ABG HCO3 ABG O2 Sat (Measured) ABG O2 Content ABG Base Excess [place]illo Test O2 Delivery Device Oxygen Flow Rate Vent Mode Vent Rate Pressure Support Vent Sodium Potassium Chloride Carbon Dioxide Anion Gap BUN Creatinine Creat Clearance w eGFR POC Glucometer 143 171 209 Random Glucose Calcium Magnesium Total Bilirubin AST ALT Alkaline Phosphatase Creatine Kinase Troponin I Total Protein Albumin 06/13/17 06/13/17 06/13/17 09:40 10:00 10:00 WBC 83.3 H* D RBC 4.43 D Hgb 11.2 L D Hct 37.0 D MCV 83.7 MCH 25.2 L MCHC 30.2 L RDW 16.6 H Plt Count 822 H D MPV 7.4 L Neutrophils % No Result Required. Lymphocytes % No Result Required. Puncture Site Right radial ABG pH 7.16 L* D ABG pCO2 at Pt Temp 75.8 H* D ABG pO2 at Pt Temp 200.0 H* D ABG HCO3 25.8 ABG O2 Sat (Measured) 99.7 H* ABG O2 Content 16.0 ABG Base Excess -4.0 L Carrillo Test Positive O2 Delivery Device Bipap Oxygen Flow Rate 100 Vent Mode Ipap 15 Vent Rate 20 Pressure Support Vent Epap 7 Sodium 141 Potassium 6.2 H* D Chloride 103 Carbon Dioxide 29 Anion Gap 9 BUN 63 H Creatinine 2.1 H Creat Clearance w eGFR 30.39 POC Glucometer Random Glucose 165 H Calcium 9.3 Magnesium 2.5 H Total Bilirubin 0.6 D AST 44 H D ALT 31 D Alkaline Phosphatase 128 H Creatine Kinase 129 Troponin I 1.07 H* D Total Protein 7.8 Albumin 3.6 Problem List - Problems (1) Acute on chronic renal failure Code(s): N17.9 - ACUTE KIDNEY FAILURE, UNSPECIFIED N18.9 - CHRONIC KIDNEY DISEASE, UNSPECIFIED (2) Acute respiratory failure with hypoxia and hypercarbia Code(s): J96.01 - ACUTE RESPIRATORY FAILURE WITH HYPOXIA J96.02 - ACUTE RESPIRATORY FAILURE WITH HYPERCAPNIA (3) Altered mental status Code(s): R41.82 - ALTERED MENTAL STATUS, UNSPECIFIED (4) Acute CHF (congestive heart failure) Code(s): I50.9 - HEART FAILURE, UNSPECIFIED Qualifiers: Congestive heart failure type: unspecified congestive heart failure type Qualified Code(s): I50.9 - Heart failure, unspecified; I50.9 - Heart failure , unspecified; I50.9 - Heart failure, unspecified; I50.9 - Heart failure, unspecified (5) Acute renal failure Code(s): N17.9 - ACUTE KIDNEY FAILURE, UNSPECIFIED (6) Anemia Code(s): D64.9 - ANEMIA, UNSPECIFIED (7) CAD (coronary artery disease) Code(s): I25.10 - ATHSCL HEART DISEASE OF [place] CORONARY ARTERY W/O ANG PCTRS Qualifiers: Coronary Disease-Associated Artery/Lesion type: [place] artery [place] vs. transplanted heart: [place] heart Associated angina: without angina Qualified Code(s): I25.10 - Atherosclerotic heart disease of [place] coronary artery without angina pectoris; I25.10 - Atherosclerotic heart disease of [place] coronary artery without angina pectoris; I25.10 - Atherosclerotic heart disease of [place] coronary artery without angina pectoris (8) CHF (congestive heart failure) Code(s): I50.9 - HEART FAILURE, UNSPECIFIED Assessment/Plan Acute Hypercapneic Respiratory Failure COPD HTN (?) PNA Acute on Chronic Renal Failure UTI Sepsis Possible component of Cardiogenic Shock PPM CAD MS drip for comfort D/C NIPPV due to aspiration risk and place on 100% NRBM Aspiration precautions DNR/DNI Comfort / supportive measures Dr Canales
[2017-06-13] MEDS: methylPREDNISolone NA SUCC 40 MG/1 ML VIAL IVPB SCH ×2 (11:46)
[2017-06-13 11:54] LABS: METAMYELOCYTE 1 % (0-2); MYELOCYTE 4 % (0-2); NUCLEATED RED BLOOD CELL 1 % (0-0); PLATELET ESTIMATE MARKEDLY INCREASED (NORMAL); TOTAL CELLS COUNTED 100
[2017-06-13] MEDS: ASPIRIN 81 MG CHEWABLE TABLETS PO SCH (12:20)
[2017-06-13] MEDS: ESCITALOPRAM OXALATE 20 MG TABLET (FP) PO SCH (12:21)
[2017-06-13] MEDS: PANTOPRAZOLE 40 MG TABLET (FP) PO SCH (12:21)
[2017-06-13] MEDS: BUDESONIDE/FORMETEROL FUMARATE 160/4.5 mcg INHALER IH SCH ×2 (12:21→22:08)
[2017-06-13] MEDS: GABAPENTIN 100 MG CAPSULE (FP) PO SCH ×2 (12:21→22:11)
--- NOTE | 2017-06-13 12:38 | EKG ---
Test Reason : Blood Pressure : / mmHG Vent. Rate : 143 BPM Atrial Rate : 129 BPM P-R Int : 000 ms QRS Dur : 122 ms QT Int : 328 ms P-R-T Axes : 000 130 027 degrees QTc Int : 506 ms WIDE QRS TACHYCARDIA POSSIBLE ATRIAL FIBRILLATION WITH RIGHT BUNDLE BRANCH BLOCK ABNORMAL ECG WHEN COMPARED WITH ECG OF 11-JUN-2017 09:51, WIDE QRS TACHYCARDIA HAS REPLACED SINUS RHYTHM VENT. RATE HAS INCREASED BY 48 BPM RIGHT BUNDLE BRANCH BLOCK IS SEEN CLINICAL CORRELATION IS RECOMMENDED Confirmed by RAMO FINE MD ([id number]) on 06/13/2017 12:38:35 PM Referred By: CLARISSA MCKAY Confirmed By:RAMO FINE MD
[2017-06-13] MEDS: DORZOLAMIDE 2% HCL OPHTHALMIC SOLUTION 10 ML BOTTLE OS SCH ×2 (12:55→22:07)
[2017-06-13] MEDS ORDERED: PT OWN MED DRAWER 7, Y5N ONE ×2 (12:55→21:53)
[2017-06-13] MEDS: ATROPINE SO4 1% OPHTH SOLN 5 ML BOTTLE OS SCH (12:56)
[2017-06-13] MEDS: TIMOLOL 0.5% OPHTHALMIC SOL 5 ML BOTTLE OS SCH ×2 (12:56→22:07)
[2017-06-13] MEDS ORDERED: LORazepam 2 MG/ML SDV VIAL IVPUSH PRN (13:43)
--- NOTE | 2017-06-13 13:46 | PN ---
Progress Note, Physician Chief Complaint: labored breathing Awake , but in mild distress labs and ABG noted spoke with Director Emergency Department in AM and spoke with son Pt now on Morphine drip - Current Medication List Current Medications: Active Medications Al Hydroxide/Mg Hydroxide (Mylanta Oral Suspension -) 30 ml PO Q6H PRN PRN Reason: DYSPEPSIA Albuterol Sulfate (Ventolin 0.083% Nebulizer Soln -) 1 amp NEB Q6H PRN PRN Reason: SHORT OF BREATH/WHEEZING Albuterol/Ipratropium (Duoneb -) 1 amp NEB Q4HPO [facility] Last Admin: 06/13/17 10:40 Dose: 1 amp Artificial Tears (Artificial Tears) 1 drop OU Q8H PRN PRN Reason: DRY EYES Last Admin: 06/12/17 15:09 Dose: 1 drop Aspirin (Asa -) 81 mg PO DAILY [facility] Last Admin: 06/13/17 12:20 Dose: Not Given Atropine Sulfate (Atropine 1% Ophth. Solution -) 1 drop OS DAILY [facility] Last Admin: 06/13/17 12:56 Dose: 1 drop Budesonide/Formoterol Fumarate (Symbicort 160/4.5mcg -) 2 puff IH BID [facility] Last Admin: 06/13/17 12:21 Dose: Not Given Clonazepam (Klonopin -) 0.25 mg PO BID PRN PRN Reason: ANXIETY Last Admin: 06/13/17 05:43 Dose: 0.25 mg Dorzolamide HCl (Trusopt 2%) 1 drop OS BID [facility] Last Admin: 06/13/17 12:55 Dose: 1 drop Escitalopram Oxalate (Lexapro -) 20 mg PO DAILY [facility] Last Admin: 06/13/17 12:21 Dose: Not Given Gabapentin (Neurontin -) 100 mg PO BID [facility] Last Admin: 06/13/17 12:21 Dose: Not Given Heparin Sodium (Porcine) (Heparin -) 5,000 unit SQ TID [facility] Last Admin: 06/13/17 05:43 Dose: 5,000 unit Sodium Chloride (1/2 Normal Saline) 1,000 mls @ 60 mls/hr IV ASDIR [facility] Last Admin: 06/12/17 17:20 Dose: Not Given Morphine Sulfate 100 mg/ (Sodium Chloride) 100 mls @ 1 mls/hr IVPB TITR DES; 1 MG/HR PRN Reason: Protocol Insulin Aspart (Novolog Vial Sliding Scale -) 1 vial SQ ACHS DES PRN Reason: Protocol Last Admin: 06/13/17 12:53 Dose: Not Given Isosorbide Mononitrate (Imdur -) 30 mg PO DAILY [facility] Last Admin: 06/13/17 12:20 Dose: Not Given Latanoprost (Xalatan 0.005% Eye Drops -) 1 drop OS HS [facility] Last Admin: 06/12/17 21:38 Dose: 1 drop Lorazepam (Ativan Injection -) 1 mg IVPUSH Q4H PRN PRN Reason: ANXIETY Methylprednisolone Sodium Succinate (Solu-Medrol -) 40 mg IVPB DAILY [facility] Last Admin: 06/13/17 11:46 Dose: 40 mg Pantoprazole Sodium (Protonix -) 40 mg PO DAILY [facility] Last Admin: 06/13/17 12:21 Dose: Not Given Timolol Maleate (Timoptic 0.5%) 1 drop OS BID [facility] Last Admin: 06/13/17 12:56 Dose: 1 drop Tramadol HCl (Ultram -) 50 mg PO BID PRN PRN Reason: BACK PAIN Last Admin: 06/11/17 15:11 Dose: 50 mg - Objective Vital Signs: Vital Signs Temperature 97.7 F 06/13/17 06:00 Pulse Rate 88 06/13/17 10:40 Respiratory Rate 20 06/13/17 06:00 Blood Pressure 165/71 06/13/17 06:00 O2 Sat by Pulse Oximetry (%) 97 06/13/17 11:40 Constitutional: Yes: Mild Distress Cardiovascular: Yes: Regular Rate and Rhythm Respiratory: Yes: Diminished, Rhonchi Gastrointestinal: Yes: Normal Bowel Sounds, Soft, Abdomen, Obese. No: Tenderness Edema: No Labs: CBC, BMP 06/13/17 10:00 06/13/17 10:00 INR, PTT INR 1.27 (0.82-1.09) H 06/08/17 15:35 Problem List - Problems (1) Acute on chronic renal failure Code(s): N17.9 - ACUTE KIDNEY FAILURE, UNSPECIFIED N18.9 - CHRONIC KIDNEY DISEASE, UNSPECIFIED (2) Acute respiratory failure with hypoxia and hypercarbia Code(s): J96.01 - ACUTE RESPIRATORY FAILURE WITH HYPOXIA J96.02 - ACUTE RESPIRATORY FAILURE WITH HYPERCAPNIA (3) Altered mental status Code(s): R41.82 - ALTERED MENTAL STATUS, UNSPECIFIED (4) Chronic lymphocytic leukemia Code(s): C91.10 - CHRONIC LYMPHOCYTIC LEUK OF B-CELL TYPE NOT ACHIEVE REMIS (5) Acute CHF (congestive heart failure) Code(s): I50.9 - HEART FAILURE, UNSPECIFIED Qualifiers: Congestive heart failure type: unspecified congestive heart failure type Qualified Code(s): I50.9 - Heart failure, unspecified; I50.9 - Heart failure , unspecified; I50.9 - Heart failure, unspecified; I50.9 - Heart failure, unspecified (6) Acute renal failure Code(s): N17.9 - ACUTE KIDNEY FAILURE, UNSPECIFIED (7) Anemia Code(s): D64.9 - ANEMIA, UNSPECIFIED (8) CAD (coronary artery disease) Code(s): I25.10 - ATHSCL HEART DISEASE OF [place] CORONARY ARTERY W/O ANG PCTRS Qualifiers: Coronary Disease-Associated Artery/Lesion type: [place] artery [place] vs. transplanted heart: [place] heart Associated angina: without angina Qualified Code(s): I25.10 - Atherosclerotic heart disease of [place] coronary artery without angina pectoris; I25.10 - Atherosclerotic heart disease of [place] coronary artery without angina pectoris; I25.10 - Atherosclerotic heart disease of [place] coronary artery without angina pectoris (9) COPD (chronic obstructive pulmonary disease) Code(s): J44.9 - CHRONIC OBSTRUCTIVE PULMONARY DISEASE, UNSPECIFIED Qualifiers : COPD type: COPD with acute exacerbation Qualified Code(s): J44.1 - Chronic obstructive pulmonary disease with (acute) exacerbation; J44.1 - Chronic obstructive pulmonary disease with (acute) exacerbation; J44.1 - Chronic obstructive pulmonary disease with (acute) exacerbation; J44.1 - Chronic obstructive pulmonary disease with (acute) exacerbation (10) Septic shock Code(s): A41.9 - SEPSIS, UNSPECIFIED ORGANISM R65.21 - SEVERE SEPSIS WITH SEPTIC SHOCK Assessment/Plan A/P Septic shock COPD exacerbation Elevated troponins NSTEMI Acute on chronic renal failure Dementia Hyperkalemia -- -- spoke with Renal -- plasma potassium is 5.2 -- was initially on BIPAP, now on Ventimask -- pt and family declines dialysis-- they want comfort care -- no aggressive management -- start Ativan IV -- ON Morphine drip-- titrate per comforta -- O2 -- nebs -- elevated WBC-- likely due to CLL
[2017-06-13] MEDS: MORPHINE 100 MG in SODIUM CHLORIDE 98 ML IVPB SCH (14:17)
[2017-06-13] MEDS: LORazepam 2 MG/ML SDV VIAL IVPUSH PRN (17:17)
--- NOTE | 2017-06-13 17:36 | PN ---
Progress Note, [employer]PRENTICE - Note Progress Note: Pt seen at bedside as a follow up to swallow eval with recommendations for dysphagia pureed and nectar thicken liquids. Pt presents as lethargic, minimally responsive. Chart review indicates poor nutritional intake. RX: consider alternate methods for providing medication, hydration and nutrition ( if appropriate) if mental status does not improve. [employer] APPRENTICE to follow up.
[2017-06-13] MEDS: LATANOPROST 0.005% OPHTH SOLN 2.5ML BOTTLE OS SCH (22:08)
[2017-06-14] MEDS: ALBUTEROL SO4 2.5/IPRATROPIUM 0.5 INH SOL 3 ML VIAL.NEB. NEB SCH ×4 (01:15→14:10)
[2017-06-14] MEDS: HEPARIN NA (PORCINE) 5,000 UNITS/ML 1ML VIAL SQ SCH (05:11)
[2017-06-14] MEDS: INSULIN SLIDING SCALE (NOVOLOG) 1 VIAL SQ SCH (06:25)
[2017-06-14] MEDS: ATROPINE SO4 1% OPHTH SOLN 5 ML BOTTLE OS SCH (10:01)
[2017-06-14] MEDS: ASPIRIN 81 MG CHEWABLE TABLETS PO SCH (10:01)
--- NOTE | 2017-06-14 10:08 | PN ---
Progress Note (short form) - Note Progress Note: agonal breathing family at bedside on Morphine drip Vital Signs - 24 hr 06/13/17 06/13/17 06/13/17 10:40 11:40 14:15 Temperature Pulse Rate 88 Respiratory Rate Blood Pressure O2 Sat by Pulse 98 97 97 Oximetry (%) 06/13/17 06/13/17 06/13/17 14:35 17:19 17:23 Temperature 99.4 F 99.0 F Pulse Rate 116 H 96 H Respiratory 16 22 Rate Blood Pressure 141/83 121/58 O2 Sat by Pulse 99 Oximetry (%) 06/13/17 06/14/17 21:00 05:44 Temperature 97.7 F 98.2 F Pulse Rate 82 79 Respiratory 22 18 Rate Blood Pressure 118/59 97/52 O2 Sat by Pulse Oximetry (%) S1 s2 RRR Teena B/L agonal breathing Edema+ lethargic PLAN CLL COPD exacerbation CHF --- inpatient hospice -- comfort care -- dc solumedrol, all PO meds -- add scopolamine patch Problem List - Problems (1) Acute on chronic renal failure Code(s): N17.9 - ACUTE KIDNEY FAILURE, UNSPECIFIED N18.9 - CHRONIC KIDNEY DISEASE, UNSPECIFIED (2) Acute respiratory failure with hypoxia and hypercarbia Code(s): J96.01 - ACUTE RESPIRATORY FAILURE WITH HYPOXIA J96.02 - ACUTE RESPIRATORY FAILURE WITH HYPERCAPNIA (3) Altered mental status Code(s): R41.82 - ALTERED MENTAL STATUS, UNSPECIFIED (4) Chronic lymphocytic leukemia Code(s): C91.10 - CHRONIC LYMPHOCYTIC LEUK OF B-CELL TYPE NOT ACHIEVE REMIS (5) Acute CHF (congestive heart failure) Code(s): I50.9 - HEART FAILURE, UNSPECIFIED Qualifiers: Congestive heart failure type: unspecified congestive heart failure type Qualified Code(s): I50.9 - Heart failure, unspecified; I50.9 - Heart failure , unspecified; I50.9 - Heart failure, unspecified; I50.9 - Heart failure, unspecified (6) Acute renal failure Code(s): N17.9 - ACUTE KIDNEY FAILURE, UNSPECIFIED (7) Anemia Code(s): D64.9 - ANEMIA, UNSPECIFIED (8) CAD (coronary artery disease) Code(s): I25.10 - ATHSCL HEART DISEASE OF [place] CORONARY ARTERY W/O ANG PCTRS Qualifiers: Coronary Disease-Associated Artery/Lesion type: [place] artery [place] vs. transplanted heart: [place] heart Associated angina: without angina Qualified Code(s): I25.10 - Atherosclerotic heart disease of [place] coronary artery without angina pectoris; I25.10 - Atherosclerotic heart disease of [place] coronary artery without angina pectoris; I25.10 - Atherosclerotic heart disease of [place] coronary artery without angina pectoris (9) COPD (chronic obstructive pulmonary disease) Code(s): J44.9 - CHRONIC OBSTRUCTIVE PULMONARY DISEASE, UNSPECIFIED Qualifiers : COPD type: COPD with acute exacerbation Qualified Code(s): J44.1 - Chronic obstructive pulmonary disease with (acute) exacerbation; J44.1 - Chronic obstructive pulmonary disease with (acute) exacerbation; J44.1 - Chronic obstructive pulmonary disease with (acute) exacerbation; J44.1 - Chronic obstructive pulmonary disease with (acute) exacerbation (10) Septic shock Code(s): A41.9 - SEPSIS, UNSPECIFIED ORGANISM R65.21 - SEVERE SEPSIS WITH SEPTIC SHOCK
[2017-06-14] MEDS ORDERED: SCOPOLAMINE HYDROBROMIDE 1 PATCH PATCH.TD72 TD SCH (10:30)
[2017-06-14] MEDS: methylPREDNISolone NA SUCC 40 MG/1 ML VIAL IVPB SCH (10:37)
[2017-06-14] MEDS: MORPHINE 100 MG in SODIUM CHLORIDE 98 ML IVPB SCH (11:32)
[2017-06-14] MEDS: LORazepam 2 MG/ML SDV VIAL IVPUSH PRN (12:38)
--- NOTE | 2017-06-14 14:19 | HOSP ---
Subjective - Review of Symptoms Events since last encounter: Was called to the bedside by the nurse because the patient had . -Patient was nonreactive to verbal and physical stimuli -Pupils were fixed and dilated. -No heart sounds auscultated. -No breath sounds auscultated. -No pulses palpated in any extremity. -Patient pronounced at 2:03 PM Physical Examination Vital Signs: Vital Signs Temperature 98.2 F 06/14/17 05:44 Pulse Rate 79 06/14/17 05:44 Respiratory Rate 18 06/14/17 05:44 Blood Pressure 97/52 06/14/17 05:44 O2 Sat by Pulse Oximetry (%) 99 06/13/17 17:23 Labs: CBC, BMP 06/13/17 10:00 06/13/17 10:00 Visit type - Emergency Visit Emergency Visit: Yes ED Registration Date: 06/08/17 Care time: The patient presented to the Emergency Department on the above date and was hospitalized for further evaluation of their emergent condition. - New Patient This patient is new to me today: Yes Date on this admission: 06/14/17 - Critical Care Critical Care patient: No
[2017-06-14 14:41] VITALS: BP 88/47; PULSE 72; TEMP 97.7
--- NOTE | 2017-06-15 09:10 | DS ---
Physical Examination Vital Signs: Vital Signs Temperature 97.7 F 06/14/17 09:10 Pulse Rate 72 06/14/17 09:10 Respiratory Rate 15 06/14/17 09:10 Blood Pressure 88/47 06/14/17 09:10 O2 Sat by Pulse Oximetry (%) 99 06/13/17 17:23 Labs: CBC, BMP 06/13/17 10:00 06/13/17 10:00 Discharge Summary Reason For Visit: ACUTE ON CHRONIC RENAL FAILURE;RESP FAIL W/HYPOXIA Hospital Course: on 06/14/17-- COPD, CLL Condition: - Instructions Referrals: Sigifredo Mcbride MD [Primary Care Provider] - Disposition: - Home Medications Comprehensive Discharge Medication List: Ambulatory Orders Albuterol 0.083% Nebulizer [place] [Ventolin 0.083% Nebulizer Soln -] 1 neb NEB Q6H 06/08/16 Budesonide/Formeterol Fumarate [SYMBICORT 160/4.5mcg -] 2 inh PO BID 06/08/16 Calcium Carbonate/Vitamin D3 [Calcium 600-Vit D3 200 Tablet] 1 each PO DAILY 12/19 Cholecalciferol (Vitamin D3) [Vitamin D3 -] 1,000 unit PO DAILY 06/08/16 Clonazepam [Klonopin -] 0.25 mg PO BID 06/08/16 Docusate Sodium 200 mg PO HS 06/08/16 Dorzolamide/Timolol/Pf [Cosopt Pf Eye Drops] 1 each OS BID 06/08/16 Escitalopram Oxalate [Lexapro -] 20 mg PO DAILY 06/08/16 Olopatadine HCl [Pataday] 1 drop OU DAILY 06/08/16 Tamsulosin HCl 0.8 mg PO 2100 06/08/16 Acetaminophen [Tylenol .Regular Strength -] 650 mg PO Q4H PRN #90 tablet Latanoprost 0.005% Eye Drops [Xalatan 0.005% Eye Drops -] 1 drop OS HS #0 06/23 Ascorbate Calcium [Vitamin C] 500 mg PO DAILY 06/08/17 Aspirin [ASA -] 81 mg PO DAILY 06/08/17 Atropine 1% Ophth. Solution - [(None)] 1 drop OS DAILY 06/08/17 Diphenhydramine HCl [Benadryl -] 25 mg PO Q6H PRN 06/08/17 Ferrous Sulfate [Feosol] 325 mg PO BID 06/08/17 Fexofenadine HCl 60 mg PO BID 06/08/17 Furosemide [Lasix -] 20 mg PO DAILY 06/08/17 Gabapentin 200 mg PO BID 06/08/17 Lisinopril [Zestril] 2.5 mg PO DAILY 06/08/17 Magnesium Chloride [Mag64] 64 mg PO DAILY 06/08/17 Metoprolol Succinate [Toprol Xl -] 25 mg PO DAILY 06/08/17 Multivitamin with Minerals [Icaps Plus] 1 each PO DAILY 06/08/17 Omeprazole 20 mg PO DAILY 06/08/17 Prednisolone 1% Ophthalmic [Pred Forte 1% -] 0 ml OS QID 06/08/17 Prednisone 5 mg PO DAILY 06/08/17 Tramadol HCl 50 mg PO BID 06/08/17 Umeclidinium [place] [Incruse Ellipta] 1 inh IH DAILY 06/08/17 Zolpidem Tartrate [Ambien] 5 mg PO HS 06/08/17
== END 2017-06-14 17:52 | disposition expired | DRG 871 ==
LOC: JER 15:03 → JERBED 16:46 → JICU 17:25 → J8W 06-10 20:06
PROVIDERS: ADMIT Internal Medicine; ATTEND Internal Medicine
PROC: 5A09557 Assistance with Respiratory Ventilation, Greater than 96 Consecutive Hours, Continuous Positive Airway Pressure (ICD-10-PCS; principal; 2017-06-08)
PROC: 05HM33Z Insertion of Infusion Device into Right Internal Jugular Vein, Percutaneous Approach (ICD-10-PCS; 2017-06-09)
DX: A41.9 Sepsis, unspecified organism (principal); J96.02 Acute respiratory failure with hypercapnia; J96.01 Acute respiratory failure with hypoxia; R65.21 Severe sepsis with septic shock; I21.4 Non-ST elevation (NSTEMI) myocardial infarction; N17.9 Acute kidney failure, unspecified; J44.1 Chronic obstructive pulmonary disease with (acute) exacerbation; I13.0 Hypertensive heart and chronic kidney disease with heart failure and stage 1 through stage 4 chronic kidney disease, or unspecified chronic kidney disease; C91.10 Chronic lymphocytic leukemia of B-cell type not having achieved remission; N39.0 Urinary tract infection, site not specified; I50.9 Heart failure, unspecified; F03.90 Unspecified dementia, unspecified severity, without behavioral disturbance, psychotic disturbance, mood disturbance, and anxiety; I25.10 Atherosclerotic heart disease of native coronary artery without angina pectoris; K21.9 Gastro-esophageal reflux disease without esophagitis; I73.9 Peripheral vascular disease, unspecified; E78.5 Hyperlipidemia, unspecified; D64.9 Anemia, unspecified; N40.0 Benign prostatic hyperplasia without lower urinary tract symptoms; F41.9 Anxiety disorder, unspecified; Z95.0 Presence of cardiac pacemaker; Z99.81 Dependence on supplemental oxygen; E11.22 Type 2 diabetes mellitus with diabetic chronic kidney disease; N18.9 Chronic kidney disease, unspecified; E87.5 Hyperkalemia; Z66 Do not resuscitate; E86.1 Hypovolemia; E83.41 Hypermagnesemia; E83.39 Other disorders of phosphorus metabolism; R13.10 Dysphagia, unspecified
CPT/HCPCS: 36415; 36600; 71010-TC; 76775-TC; 80048; 80053; 80061; 81003; 81015; 82272; 82375; 82436; 82570; 82803; 83036; 83050; 83605; 83721; 83735; 83880; 84100; 84132; 84133; 84300; 84436; 84439; 84443; 84480; 84484; 84540; 85025; 85027; 85610; 86850; 86900; 86901; 87040; 87086; 87899; 93005; 93010; 93306-TC; 94640; 94660; 97161-GP; 99284-25; J1644